=== PATIENT | female | born 1940 | race Caucasian/White ===

== ENCOUNTER 2017-08-16 21:42 | Emergency (ER) | payer MEDICARE ==
[2017-08-16] MEDS ORDERED: HYDROCODONE/ACETAMINOPHEN 5-325 MG TABLET PO ONE (21:58)
--- NOTE | 2017-08-16 21:59 | ER Document Report ---
ED General - General Stated Complaint: LOW BACK PAIN Time Seen by Provider: 08/16/17 21:51 Notes: Patient is a 77-year-old female comes emergency department for chief complaint of lower back pain. She states that she is treated with Tylenol and tramadol for this normally but she was given both of these tonight and she still is having pain in her lower back so she was sent to the emergency department for evaluation. She denies fall, trauma, fever, nausea/vomiting, dysuria, abdominal pain, or any other complaints. TRAVEL OUTSIDE OF THE [place] IN LAST 30 DAYS: No - Related Data Allergies/Adverse Reactions: HERIBERTO Inhibitors [Heriberto Inhibitors] Allergy (Verified 08/29/16 13:41) Past Medical History - General Information source: Patient - Social History Smoking Status: Current Every Day Smoker Frequency of alcohol use: None Drug Abuse: None Lives with: Family Family History: Hypertension - Past Medical History Cardiac Medical History: Reports: Hx Hypercholesterolemia, Hx Hypertension Neurological Medical History: Denies: Hx Cerebrovascular Accident Endocrine Medical History: Reports: Hx Diabetes Mellitus Type 2 Renal/ Medical History: Reports: Hx Renal Insufficiency GI Medical History: Reports: Hx Gastroesophageal Reflux Disease Musculoskeltal Medical History: Reports Hx Arthritis - Rheumatoid arthritis Psychiatric Medical History: Reports: Hx Depression Past Surgical History: Reports: Hx Genitourinary Surgery - bladder tack, Hx Hysterectomy, Hx Orthopedic Surgery - left ankle and foot - Immunizations Hx Diphtheria, Pertussis, Tetanus Vaccination: No Hx Pneumococcal Vaccination: 10/31/15 Review of Systems - Review of Systems Constitutional: No symptoms reported EENT: No symptoms reported Cardiovascular: No symptoms reported Respiratory: No symptoms reported Gastrointestinal: No symptoms reported Genitourinary: See HPI Female Genitourinary: No symptoms reported Musculoskeletal: See HPI Skin: No symptoms reported Hematologic/Lymphatic: No symptoms reported Neurological/Psychological: No symptoms reported Physical Exam - Vital signs Vitals: Temp Pulse Resp BP Pulse Ox 99.4 F 66 20 194/80 H 93 08/16/17 21:58 08/16/17 21:58 08/16/17 21:58 08/16/17 21:58 08/16/17 21:58 Interpretation: Normal - General General appearance: Appears well, Alert In distress: None - HEENT Head: Normocephalic, Atraumatic Eyes: Normal Pupils: PERRL - Respiratory Respiratory status: No respiratory distress Chest status: Nontender Breath sounds: Normal Chest palpation: Normal - Cardiovascular Rhythm: Regular Heart sounds: Normal auscultation Murmur: No - Abdominal Inspection: Normal Distension: No distension Bowel sounds: Normal Tenderness: Nontender. No: Tender, Guarding Organomegaly: No organomegaly - Back Back: Normal, Nontender. No: Tender, CVA tenderness, Vertebra tenderness - Extremities General upper extremity: Normal inspection, Nontender, Normal color, Normal ROM , Normal temperature General lower extremity: Normal inspection, Nontender, Normal color, Normal ROM , Normal temperature, Normal weight bearing. No: Reina's sign - Neurological Neuro grossly intact: Yes Cognition: Normal Orientation: AAOx4 Nikko Coma Scale Eye Opening: Spontaneous Nikko Coma Scale Verbal: Oriented Delcambre Coma Scale Motor: Obeys Commands Nikko Coma Scale Total: 15 Speech: Normal Motor strength normal: LUE, RUE, LLE, RLE Sensory: Normal - Psychological Associated symptoms: Normal affect, Normal mood - Skin Skin Temperature: Warm Skin Moisture: Dry Skin Color: Normal Course - Re-evaluation Re-evalutation: Patient hypertensive, no chest pain, no headache. She is already on multiple antihypertensive medications including hydralazine, clonidine, etc. I actually do not appreciate any tenderness over her back, she is smiling and well- appearing. She still states that she hurts in her back, states that she is in a wheelchair most of the time and this is frequent for her, request something for pain. Given hydrocodone. Afterwards pain completely resolved, she became very relaxed. Urinalysis unremarkable. Physical exam showing no deficits or concerning acute findings. Family member at bedside, discussed this with them, after discussion patient will be given topical patches for pain if needed in addition to her current regimen, follow-up with her provider for remaining treatment, and discussed return precautions in detail. Patient and family member state understanding and agreement. - Vital Signs Vital signs: Temp Pulse Resp BP Pulse Ox 97.8 F 66 13 159/61 H 95 08/17/17 01:45 08/16/17 21:58 08/17/17 01:02 08/17/17 01:02 08/17/17 01:02 - Laboratory Laboratory results interpreted by me: 08/16/17 23:03 Urine Protein 30 H Discharge - Discharge Clinical Impression: Lower back pain Qualifiers: Chronicity: chronic Back pain laterality: bilateral Sciatica presence: without sciatica Qualified Code(s): M54.5 - Low back pain Condition: Stable Disposition: SNF-Other Additional Instructions: No concerning abnormalities are seen on your evaluation. Urinalysis is unremarkable. You were given one dose of hydrocodone here tonight. Recommendation is to continue Tylenol and tramadol if needed for back pain, if needed additionally to this try the Lidoderm patches prescribed as directed. Follow-up with your primary care for additional management. Return the emergency department for any concerning symptoms including vomiting, fever, increased pain, etc. Prescriptions: Lidocaine [Lidoderm 5% (700 mg) Transdermal Patch] 1 patch TP DAILY #30 adh..patch Referrals: KATY POSADAS MD [Primary Care Provider] - Follow up as needed
[2017-08-16 23:12] LABS: APPEARANCE,URINE CLEAR; BILIRUBIN,URINE NEGATIVE (NEGATIVE); GLUCOSE, URINE NEGATIVE (NEGATIVE); KETONES,URINE NEGATIVE (NEGATIVE); LEUKOCYTE ESTERASE,URINE NEGATIVE (NEGATIVE); NITRITE,URINE NEGATIVE (NEGATIVE); PROTEIN,URINE 30 mg/dL (NEGATIVE); URINE SPECIFIC GRAVITY 1.008; UROBILINOGEN,URINE NEGATIVE mg/dL (<2.0)
[2017-08-17 01:39] VITALS: BP 159/61
== END 2017-08-17 01:49 ==
LOC: ER 21:42
DX: M54.5 Low back pain (principal); F17.200 Nicotine dependence, unspecified, uncomplicated; E78.00 Pure hypercholesterolemia, unspecified; I10 Essential (primary) hypertension; E11.9 Type 2 diabetes mellitus without complications; Z90.710 Acquired absence of both cervix and uterus
CPT/HCPCS: 99283; 51701; 81001; A9270

== ENCOUNTER → 2017-10-11 | Outpatient (CLI) | payer MEDICARE ==
--- NOTE | 2017-10-11 15:31 | RADIOLOGY REPORT (SQ) ---
EXAM DESCRIPTION: MRA ABDOMEN WITHOUT COMPLETED DATE/TIME: 10/11/2017 2:09 pm REASON FOR STUDY: CKD III (N18.3), HYPERTENSIVE CKD (I12.9) N18.3 CHRONIC KIDNEY DISEASE, STAGE 3 ( MODERATE) I12.9 HYPERTENSIVE CHRONIC KIDNEY DISEASE W STG 1-4/UNSP CHR COMPARISON: None. TECHNIQUE: Axial gradient echo images and T2 weighted images reformatted using MIPS for evaluation o f the aorta and renal arteries. FINDINGS: Aorta: Patent SMA and celiac axis: Patent without significant stenosis. Less than 50% stenosis margin of the tyson c axis. Renal arteries: The right renal artery is generally patent without any focal stenosis. The left melissa l artery is occluded. Solid organs: Liver and spleen remarkable for a eventration of the right hemidiaphragm and associate d migration of the right lobe of the liver. Pancreas without abnormality. No gallstones. Kidneys: No significant finding in the right kidney. The left kidney is atrophic with a large left renal cysts. 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 Right renal artery generally patent without focal stenosis. TECHNICAL DOCUMENTATION: JOB ID: [id number] [employer]- All Rights Reserved
== END ==
LOC: RAD 12:45
PROVIDERS: ATTEND Internal Medicine Nephrology
DX: I12.9 Hypertensive chronic kidney disease with stage 1 through stage 4 chronic kidney disease, or unspecified chronic kidney disease (principal); N18.3 Chronic kidney disease, stage 3 (moderate); D64.9 Anemia, unspecified
CPT/HCPCS: C8901

== ENCOUNTER 2017-12-09 15:57 | Inpatient (IN) | payer MEDICARE, MEDICAID ==
[2017-12-09] MEDS ORDERED: ACETAMINOPHEN 650 MG SUPP.RECT PR ONE (16:35)
[2017-12-09] MEDS ORDERED: PIPERACILLIN/TAZOBACTAM 4.5 GM VIAL IV ONE (16:35)
[2017-12-09] MEDS ORDERED: NORMAL SALINE 1000 ML 1,000 ML IV ONE (16:35)
[2017-12-09 16:44] LABS: VENOUS BLOOD BASE EXCESS 2.3 mmol/L; VENOUS BLOOD HCO3 25.7 mmol/L (20-32); VENOUS BLOOD PCO2 36.4 mmHg (35-63); VENOUS BLOOD PH 7.47 (7.30-7.42)
[2017-12-09 16:51] LABS: ABSOLUTE EOSINOPHILS # (AUTO) 0.1 10^3/uL (0.0-0.6); ABSOLUTE LYMPHOCYTES (AUTO) 1.9 10^3/uL (0.5-4.7); ABSOLUTE MONOCYTES (AUTO) 0.8 10^3/uL (0.1-1.4); ABSOLUTE NEUT (AUTO) 6.5 10^3/uL (1.7-8.2); BASOPHILS % (AUTO) 0.2 % (0-2); EOSINOPHILS % (AUTO) 1.1 % (0-6); HEMATOCRIT 33.4 % (36.0-47.0); HEMOGLOBIN 11.2 g/dL (12.0-15.5); LYMPHOCYTES % (AUTO) 20.2 % (13-45); MEAN CORPUSCULAR HEMOGLOBIN 32.7 pg (27.0-33.4); MEAN CORPUSCULAR HGB CONC 33.6 g/dL (32.0-36.0); MEAN CORPUSCULAR VOLUME 97 fl (80-97); MONOCYTES % (AUTO) 8.8 % (3-13); PLATELET COUNT 135 10^3/uL (150-450); RED BLOOD COUNT 3.44 10^6/uL (3.72-5.28); RED CELL DISTRIBUTION WIDTH 13.1 % (11.5-14.0); SEGMENTED NEUTROPHILS % (AUTO) 69.7 % (42-78); TOTAL CELLS COUNTED % (AUTO) 100 %; WHITE BLOOD COUNT 9.3 10^3/uL (4.0-10.5)
[2017-12-09 16:53] LABS: INTERNATIONAL RATION (INR) 0.98; PROTHROMBIN TIME 13.7 SEC (11.4-15.4)
--- NOTE | 2017-12-09 17:00 | RADIOLOGY REPORT (SQ) ---
EXAM DESCRIPTION: CHEST SINGLE VIEW COMPLETED DATE/TIME: 12/09/2017 4:49 pm REASON FOR STUDY: fever, AMS COMPARISON: 06/20/2016 NUMBER OF VIEWS: One view. TECHNIQUE: Single frontal radiographic view of the chest acquired. LIMITATIONS: None. FINDINGS: LUNGS AND PLEURA: No opacities, masses or pneumothorax. No pleural effusion. MEDIASTINUM AND HILAR STRUCTURES: No masses or contour abnormality. Elevated right hemidiaphragm. HEART AND VASCULATURE: Cardiac enlargement. Vascular congestion. Mitral annular calcification. BONES: Severe degenerative changes of the right shoulder. HARDWARE: None in the chest. OTHER: No other significant finding. IMPRESSION: CARDIAC ENLARGEMENT. VASCULAR CONGESTION. TECHNICAL DOCUMENTATION: JOB ID: [id number] [employer]- All Rights Reserved
[2017-12-09 17:04] LABS: ALANINE AMINOTRANSFERASE 21 U/L (9-52); ALBUMIN 3.9 g/dL (3.5-5.0); ALKALINE PHOSPHATASE 81 U/L (38-126); ANION GAP 10 (5-19); ASPARTATE AMINO TRANSFERASE 41 U/L (14-36); BILIRUBIN,DIRECT 0.1 mg/dL (0.0-0.4); BILIRUBIN,TOTAL 0.9 mg/dL (0.2-1.3); BLOOD UREA NITROGEN 28 mg/dL (7-20); CALCIUM 9.6 mg/dL (8.4-10.2); CARBON DIOXIDE 25 mmol/L (22-30); CHLORIDE 103 mmol/L (98-107); GLUCOSE 114 mg/dL (75-110); POTASSIUM 4.7 mmol/L (3.6-5.0); SODIUM 137.9 mmol/L (137-145); TOTAL PROTEIN 6.4 g/dL (6.3-8.2)
[2017-12-09 17:45] LABS: APPEARANCE,URINE CLEAR; BILIRUBIN,URINE NEGATIVE (NEGATIVE); COLOR,URINE YELLOW; GLUCOSE, URINE NEGATIVE (NEGATIVE); KETONES,URINE NEGATIVE (NEGATIVE); LEUKOCYTE ESTERASE,URINE TRACE (NEGATIVE); NITRITE,URINE NEGATIVE (NEGATIVE); PROTEIN,URINE 30 mg/dL (NEGATIVE); UROBILINOGEN,URINE NEGATIVE mg/dL (<2.0)
--- NOTE | 2017-12-09 18:46 | ER Document Report ---
ED General - General Mode of Arrival: Ambulatory Information source: Patient TRAVEL OUTSIDE OF THE [place] IN LAST 30 DAYS: No <LUIS DANIEL RUCKER - Last Filed: 12/10/17 00:53> <MAE HAN - Last Filed: 12/10/17 00:55> - General Chief Complaint: General Weakness Stated Complaint: WEAKNESS Time Seen by Provider: 12/09/17 16:26 Notes: Patient is a 77-year-old female who presents to the emergency department today with complaints of not feeling right. Daughter at bedside states that the [facility] her last night saying that the patient stated she "felt lousy but did not want to come to the hospital". Daughter states today again she got a call from the patient's penitentiary stating "she requested to come to the emergency department". Daughter states the patient is confused and she is normally like this when she has urinary tract infection or is dehydrated. 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 All history provided by the daughter. (MAE HAN) - Related Data Allergies/Adverse Reactions: HERIBERTO Inhibitors [Heriberto Inhibitors] Allergy (Verified 08/29/16 13:41) Past Medical History - General Information source: Patient - Social History Smoking Status: Former Smoker Cigarette use (# per day): No Chew tobacco use (# tins/day): No Frequency of alcohol use: None Drug Abuse: None Lives with: Family Family History: Reviewed & Not Pertinent, Hypertension Patient has suicidal ideation: No Patient has homicidal ideation: No - Past Medical History Cardiac Medical History: Reports: Hx Hypercholesterolemia, Hx Hypertension Endocrine Medical History: Reports: Hx Diabetes Mellitus Type 2 Renal/ Medical History: Reports: Hx Renal Insufficiency GI Medical History: Reports: Hx Gastroesophageal Reflux Disease Musculoskeltal Medical History: Reports Hx Arthritis - Rheumatoid arthritis Psychiatric Medical History: Reports: Hx Depression Past Surgical History: Reports: Hx Genitourinary Surgery - bladder tack, Hx Hysterectomy, Hx Orthopedic Surgery - left ankle and foot - Immunizations Hx Diphtheria, Pertussis, Tetanus Vaccination: No Hx Pneumococcal Vaccination: 10/31/15 <LUIS DANIEL RUCKER - Last Filed: 12/10/17 00:53> Musculoskeltal Medical History: Reports Other - viral myositis <MAE HAN - Last Filed: 12/10/17 00:55> Review of Systems - Review of Systems Constitutional: See HPI, Fever EENT: No symptoms reported Cardiovascular: No symptoms reported Respiratory: No symptoms reported Gastrointestinal: No symptoms reported Genitourinary: No symptoms reported Female Genitourinary: No symptoms reported Musculoskeletal: No symptoms reported Skin: No symptoms reported Hematologic/Lymphatic: No symptoms reported Neurological/Psychological: See HPI, Confusion -: Yes All other systems reviewed and negative <LUIS DANIEL RUCKER - Last Filed: 12/10/17 00:53> <MAE HAN - Last Filed: 12/10/17 00:55> - Review of Systems Notes: From the daughter. (MAE HAN) Physical Exam <LUIS DANIEL RUCKER - Last Filed: 12/10/17 00:53> <MAE HAN - Last Filed: 12/10/17 00:55> - Vital signs Vitals: Resp Pulse Ox 23 H 91 L 12/09/17 16:54 12/09/17 16:54 - Notes Notes: PHYSICAL EXAM GENERAL: Eyes open, staring off, does not answer questions, does not interact well, does not seem aware of people in the room. HEAD: Normocephalic, atraumatic. EYES: Pupils equal, round, and reactive to light. Extraocular movements intact. ENT: Dry mucosa moist, tongue midline. NECK: Full range of motion. Supple. Trachea midline. LUNGS: Clear to auscultation bilaterally, no wheezes, rales, or rhonchi. No respiratory distress. HEART: 2/6 systolic murmur, mildly tachycardic. No gallops or rubs. ABDOMEN: Soft, non-tender. Non-distended. Bowel sounds present in all 4 quadrants. EXTREMITIES: Complains of pain with movement of left elbow. Left elbow swollen, joint effusion, no tenderness over the olecranon. Radial and dorsalis pedis pulses 2/4 bilaterally. No cyanosis. NEUROLOGICAL: Confused. Moans during exam. PSYCH: Confused. Moans. SKIN: Hot to the touch, dry, normal turgor. No rashes or lesions noted. (LUIS DANIEL RUCKER) Course - Laboratory Result Diagrams: 12/09/17 16:25 12/09/17 16:25 <LUIS DANIEL RUCKER - Last Filed: 12/10/17 00:53> - Laboratory Result Diagrams: 12/09/17 16:25 12/09/17 16:25 <MAE HAN - Last Filed: 12/10/17 00:55> - Re-evaluation Re-evalutation: 12/09/17 19:42 CBC shows anemia with hemoglobin 11.2, platelets low at 135, no leukocytosis, no left shift, coags normal, venous blood gas grossly unremarkable, chemistries show CKD stage III grossly unchanged from baseline, LFTs unremarkable, cardiac enzymes positive with a troponin of 3.0, proBNP elevated at 3610. EKG is nonischemic although does show some anterior Q waves suspicious for prior infarction. Daughter adds that patient had been having some chest pain earlier in the week that went away with nitroglycerin. Suspect that patient may have had a non-STEMI earlier in the week which has already been completed. No evidence of ongoing ischemia. Urinalysis only shows trace leukocyte esterase, trace bacteria, I very much doubt urinary tract infection at this time however urine culture and blood cultures are pending. Chest x-ray shows vascular congestion. Patient does not have a history of congestive heart failure, she also does not have a history of prior heart attack prior to today. I suspect the patient has influenza as she is coming from [facility] where there is a very high rate of influenza and she has no symptoms of other infectious processes at this time. Patient will be started on an antiviral. Currently I am awaiting a phone call back from the pharmacist as the patient will not be able to take pills due to her altered mental status, I do not see any IV antivirals available in the computer so I am awaiting consultation with them. Patient has been given aspirin. I discussed the case with Dr. Vizcarra from the hospitalist service who agrees to admit the patient to her service on the [facility]. We both agree that at present the patient is not a candidate for immediate catheterization given her fever and her altered mental status. Patient will be stabilized here from an infectious disease standpoint and managed medically with consultation to the teacher adventure education projection technician, once the fever and altered mental status are resolved patient may need to be transferred for catheterization. Family understands this plan and is in agreement with it. 12/09/17 19:45 Hypertension will continue to be followed in the hospital. (MAE HAN) - Vital Signs Vital signs: Temp Pulse Resp BP Pulse Ox 97.9 F 78 24 H 166/65 H 96 12/10/17 00:01 12/09/17 20:45 12/10/17 00:01 12/10/17 00:01 12/10/17 00:03 - Laboratory Laboratory results interpreted by me: 12/09/17 12/09/17 12/09/17 16:25 16:25 16:25 RBC 3.44 L Hgb 11.2 L Hct 33.4 L Plt Count 135 L VBG pH 7.47 H BUN 28 H Creatinine 1.62 H Est GFR ( Amer) 37 L Est GFR (Non-Af Amer) 31 L Glucose 114 H AST 41 H Creatine Kinase NT-Pro-B Natriuret Pep Urine Protein Ur Leukocyte Esterase Urine Ascorbic Acid 12/09/17 12/09/17 12/09/17 17:05 17:05 17:24 RBC Hgb Hct Plt Count VBG pH BUN Creatinine Est GFR ( Amer) Est GFR (Non-Af Amer) Glucose AST Creatine Kinase 217 H NT-Pro-B Natriuret Pep 3610 H Urine Protein 30 H Ur Leukocyte Esterase TRACE H Urine Ascorbic Acid 40 H - EKG Interpretation by Me Additional EKG results interpreted by me: 12/09/17 19:43 EKG shows sinus rhythm rate of 88, first-degree AV block, left axis deviation, no ST segment elevations or depressions, no T-wave inversions, there are anterior Q waves per my interpretation. (MAE HAN) Critical Care Note - Critical Care Note Total time excluding time spent on procedures (mins): 55 <MAE HAN - Last Filed: 12/10/17 00:55> Discharge <LUIS DANIEL RUCKER - Last Filed: 12/10/17 00:53> - Discharge Admitting Provider: Hospitalist - [place] [facility] Admitted: [facility] <MAE HAN - Last Filed: 12/10/17 00:55> - Discharge Clinical Impression: Influenza, Non-STEMI (non-ST elevated myocardial infarction), CKD (chronic kidney disease), stage III Fever Qualifiers: Fever type: due to other condition Qualified Code(s): R50.81 - Fever presenting with conditions classified elsewhere Altered mental status Qualifiers: Altered mental status type: delirium Qualified Code(s): R41.0 - Disorientation , unspecified Condition: Serious Disposition: ADMITTED INPATIENT Scribe Attestation: 12/10/17 00:55 I personally performed the services described in the documentation, reviewed and edited the documentation which was dictated to the scribe in my presence, and it accurately records my words and actions. (MAE HAN) Scribe Documentation - Scribe Written by Arunaibe:: Mariia Rodney, 12/09/2017 1909 acting as scribe for :: Lisa <LUIS DANIEL RUCKER - Last Filed: 12/10/17 00:53>
[2017-12-09 18:55] LABS: CREATINE KINASE MB 2.87 ng/mL (<4.55)
[2017-12-09] MEDS ORDERED: FUROSEMIDE INJ/PF 40 MG/4 ML SDV IV ONE ×2 (19:34→23:00)
[2017-12-09] MEDS ORDERED: ASPIRIN 300 MG SUPP, RECTAL PR ONE ×2 (19:34→23:00)
[2017-12-09] MEDS ORDERED: OSELTAMIVIR PHOSPHATE 75 MG CAPSULE PO ONE (19:47)
[2017-12-09] MEDS ORDERED: ACETAMINOPHEN 650 MG SUPP.RECT PR PRN (19:50)
[2017-12-09] MEDS ORDERED: VANCOMYCIN HCL 0 MG in DEXTROSE 5%-WATER 250 ML IV NR (20:00)
[2017-12-09] MEDS ORDERED: NITROGLYCERIN 2.5 MG (0.1 MG/HR) PATCH.TD24 TD ONE (20:05)
[2017-12-09] MEDS ORDERED: DEXTROSE 50%-WATER 25 GM/50 ML DISP.SYRIN IV PRN ×4 (20:12→21:24)
[2017-12-09] MEDS ORDERED: VANCOMYCIN HCL INJ 1000 MG VIAL IV PRN (20:12)
[2017-12-09] MEDS ORDERED: GLUCAGON,HUMAN RECOMB 1 MG INJ IM PRN (20:12)
[2017-12-09] MEDS ORDERED: DEXTROSE 40% GEL 15 GM TUBE PO PRN ×4 (20:12→21:24)
[2017-12-09] MEDS ORDERED: ENOXAPARIN SODIUM INJ 100 MG/1 ML DISP.SYRIN SUBCUT ONE (20:15)
[2017-12-09 20:31] LABS: FREE T4 (FREE THYROXINE) 1.29 ng/dL (0.78-2.19)
[2017-12-09 20:45] LABS: THYROID STIMULATING HORMONE 1.67 uIU/mL (0.47-4.68)
[2017-12-09] MEDS: LEVALBUTEROL HCL NEB 1.25 MG/3 ML AMPUL NEB SCH (20:45)
--- NOTE | 2017-12-09 20:46 | EKG REPORT ---
SEVERITY:- ABNORMAL ECG - SINUS RHYTHM CONSIDER LEFT VENTRICULAR HYPERTROPHY ANTERIOR Q WAVES, POSSIBLY DUE TO LVH : Confirmed by: La Nena Mejía 09-Dec-2017 20:46:24
[2017-12-09] MEDS ORDERED: VANCOMYCIN HCL 1,000 MG in DEXTROSE 5%-WATER 250 ML IV ONE (21:00)
[2017-12-09] MEDS ORDERED: GLUCAGON,HUMAN RECOMB 1 MG INJ SUBCUT PRN (21:24)
[2017-12-09] MEDS ORDERED: PANTOPRAZOLE SODIUM 40 MG VIAL IV SCH (22:00)
[2017-12-09] MEDS ORDERED: METOPROLOL TARTRATE PF/INJ 5 MG/5 ML SDV IV SCH (22:00)
[2017-12-09] MEDS: HYDROCORTISONE SOD SUCCINATE INJ/PF 100 MG/2 ML SDV IV SCH (23:04)
[2017-12-10] MEDS ORDERED: PIPERACILLIN/TAZOBACTAM 3.375 GM VIAL IV PRN
[2017-12-10 00:42] LABS: APPEARANCE,URINE CLEAR; BILIRUBIN,URINE NEGATIVE (NEGATIVE); COLOR,URINE YELLOW; GLUCOSE, URINE NEGATIVE (NEGATIVE); KETONES,URINE NEGATIVE (NEGATIVE); LEUKOCYTE ESTERASE,URINE NEGATIVE (NEGATIVE); NITRITE,URINE NEGATIVE (NEGATIVE); PROTEIN,URINE 100 mg/dL (NEGATIVE); URINE SPECIFIC GRAVITY 1.012; UROBILINOGEN,URINE NEGATIVE mg/dL (<2.0)
[2017-12-10] MEDS ORDERED: NITROGLYCERIN 2.5 MG (0.1 MG/HR) PATCH.TD24 ONE (00:58)
[2017-12-10] MEDS: LEVALBUTEROL HCL NEB 1.25 MG/3 ML AMPUL NEB SCH ×2 (01:16→08:15)
[2017-12-10] MEDS: NORMAL SALINE 1000 ML 1,000 ML IV PRN ×2 (01:25→15:00)
[2017-12-10] MEDS: PIPERACILLIN SODIUM/TAZOBACTAM 3.375 GM in NORMAL SALINE 100 ML IV SCH ×4 (01:26→18:01)
--- NOTE | 2017-12-10 04:06 | PDOC H&P ---
History of Present Illness Admission Date/PCP: 12/09/17 20:00 KATY POSADAS MD Patient complains of: Change in mentation and fever History of Present Illness: GUY VICTORIA is a 77 year old female who resides at [facility]. She has a history of polymyositis, hypertension, type 2 diabetes, CKD stage III. Patient is currently altered and unable to give any history. Patient just says okay repeatedly. Per patient's daughter who is at bedside she states that she is complained of several days of just not feeling well. However they stated that she was stable. On Sunday for she complained of chest pain while at [facility] she was given sublingual nitroglycerin and her chest pain went away. Today patient was found to be confused and was sent here for further evaluation. On presentation patient was febrile with T-max of 102.5. Patient was also found to have an elevated troponin of 3. She was noted to have vascular congestion on chest x-ray. UA was unimpressive. Per patient's daughter usually patient becomes confused due to a urinary tract infection. Per the daughter patient is usually very sharp. Patient does not do much activity on her own due to her polymyositis. Patient is able to transfer from bed to chair or chair to bed with assistance. Patient does have difficulty with eating and was working with speech therapy. All patient medications have to be crushed and patient is on a modified diet. Hospitalist was called to admit patient for acute metabolic encephalopathy, febrile illness non-STEMI Past Medical History Cardiac Medical History: Reports: Hyperlipidema, Hypertension Endocrine Medical History: Reports: Diabetes Mellitus Type 2 GI Medical History: Reports: Gastroesophageal Reflux Disease Musculoskeltal Medical History: Reports: Arthritis - Rheumatoid arthritis Psychiatric Medical History: Reports: Depression Past Surgical History Past Surgical History: Reports: Hysterectomy, Orthopedic Surgery - left ankle and foot Social History Lives with: Family Smoking Status: Former Smoker Frequency of Alcohol Use: None Hx Recreational Drug Use: No Drugs: None Hx Prescription Drug Abuse: No - Advance Directive Resuscitation Status: Full Code Family History Family History: Hypertension Parental Family History Reviewed: No Children Family History Reviewed: No Sibling(s) Family History Reviewed.: No Medication/Allergy Home Medications: Carvedilol [Coreg 12.5 mg Tablet] 25 mg PO Q12 tablet 11/05/15 Hydrocortisone [Cortef 10 mg Tablet] 20 mg PO DAILY tablet 11/05/15 Omeprazole 20 mg PO QAM #0 11/05/15 Acetaminophen [Tylenol 325 mg Tablet] 650 mg PO Q4HP PRN tablet 11/09/15 Hydralazine HCl [Apresoline 50 mg Tablet] 50 mg PO TID 06/20/16 Montelukast Sodium [Singulair 10 mg Tablet] 10 mg PO DAILY 06/20/16 Calcium Carbonate [Tums Chewable 500 mg Tab.chew] 500 mg PO Q6HP PRN tab.chew 06/26/16 Fluticasone Propionate [Flonase Nasal [place] 50 Mcg/[place] 16 gm] 2 spray NASL DAILY spray.pump 06/26/16 Furosemide [Lasix 20 mg Tablet] 20 mg PO DAILY tablet 06/26/16 Potassium Chloride [Klor-Con 10 Meq Tablet.sa] 10 meq PO DAILY #0 06/26/16 Ascorbic Acid [Vitamin C 500 mg Tablet] 500 mg PO DAILY 08/29/16 Febuxostat [Uloric 40 mg Tablet] 40 mg PO DAILY 08/29/16 Gabapentin [Neurontin 300 mg Capsule] 300 mg PO Q8 08/29/16 Losartan Potassium [Cozaar 50 mg Tablet] 50 mg PO DAILY 08/29/16 Magnesium Oxide [Mag-Ox 400 mg Tablet] 400 mg PO DAILY 08/29/16 Multivitamin/Iron/Folic Acid [Centrum Complete Multivit Tab] 1 tab PO QAM Ropinirole HCl 1 tab PO BID 08/29/16 Tramadol HCl [Ultram 50 mg Tablet] 50 mg PO Q6 PRN 08/29/16 Cyanocobalamin (Vitamin B-12) [B-12 Compliance] 1,000 mcg SQ ASDIR #1 kit Insulin Lispro [Humalog Insulin (Lispro) 100 unit/mL] 0 unit SUBCUT .SLD SCALE # 10 ml 08/31/16 Lidocaine [Lidoderm 5% (700 mg) Transdermal Patch] 1 patch TP DAILY #30 adh..patch 08/16/17 Clonidine HCl [Catapres] 0.2 mg PO BID 12/09/17 Docusate Sodium [Colace 100 mg Capsule] 100 mg PO BID 12/09/17 Guar Gum [Benefiber] 1 each PO BID PRN 12/09/17 L.acidoph,Paracasei, B.lactis [Probiotic] 1 each PO BID 12/09/17 Fay-3 Fatty Acids/Fish Oil [Fish Oil 1,000 mg Capsule] 2 each PO DAILY Allergies/Adverse Reactions: HERIBERTO Inhibitors [Heriberto Inhibitors] Allergy (Verified 08/29/16 13:41) Review of Systems ROS unobtainable: Due to mental status Physical Exam Vital Signs: Temp Pulse Resp BP Pulse Ox 102.0 F H 78 14 180/81 H 99 12/09/17 20:24 12/09/17 20:45 12/09/17 20:45 12/09/17 20:01 12/09/17 20:45 Results Laboratory Results: 12/09/17 12/09/17 12/09/17 16:25 16:25 16:25 WBC 9.3 RBC 3.44 L Hgb 11.2 L Hct 33.4 L MCV 97 MCH 32.7 MCHC 33.6 RDW 13.1 Plt Count 135 L Seg Neutrophils % 69.7 Lymphocytes % 20.2 Monocytes % 8.8 Eosinophils % 1.1 Basophils % 0.2 Absolute Neutrophils 6.5 Absolute Lymphocytes 1.9 Absolute Monocytes 0.8 Absolute Eosinophils 0.1 Absolute Basophils 0.0 PT 13.7 INR 0.98 VBG pH VBG pCO2 VBG HCO3 VBG Base Excess Sodium 137.9 Potassium 4.7 Chloride 103 Carbon Dioxide 25 Anion Gap 10 BUN 28 H Creatinine 1.62 H Est GFR ( Amer) 37 L Est GFR (Non-Af Amer) 31 L Glucose 114 H Lactic Acid Calcium 9.6 Total Bilirubin 0.9 Direct Bilirubin 0.1 AST 41 H ALT 21 Alkaline Phosphatase 81 Creatine Kinase CK-MB (CK-2) Troponin I NT-Pro-B Natriuret Pep Total Protein 6.4 Albumin 3.9 TSH Free T4 Urine Color Urine Appearance Urine pH Ur Specific [place] Urine Protein Urine Glucose (UA) Urine Ketones Urine Blood Urine Nitrite Urine Bilirubin Urine Urobilinogen Ur Leukocyte Esterase Urine WBC (Auto) Urine RBC (Auto) U Hyaline Cast (Auto) Urine Mucus (Auto) Urine Ascorbic Acid 12/09/17 12/09/17 12/09/17 16:25 16:25 17:05 WBC RBC Hgb Hct MCV MCH MCHC RDW Plt Count Seg Neutrophils % Lymphocytes % Monocytes % Eosinophils % Basophils % Absolute Neutrophils Absolute Lymphocytes Absolute Monocytes Absolute Eosinophils Absolute Basophils PT INR VBG pH 7.47 H VBG pCO2 36.4 VBG HCO3 25.7 VBG Base Excess 2.3 Sodium Potassium Chloride Carbon Dioxide Anion Gap BUN Creatinine Est GFR ( Amer) Est GFR (Non-Af Amer) Glucose Lactic Acid 0.7 Calcium Total Bilirubin Direct Bilirubin AST ALT Alkaline Phosphatase Creatine Kinase 217 H CK-MB (CK-2) Troponin I NT-Pro-B Natriuret Pep Total Protein Albumin TSH Free T4 Urine Color Urine Appearance Urine pH Ur Specific [place] Urine Protein Urine Glucose (UA) Urine Ketones Urine Blood Urine Nitrite Urine Bilirubin Urine Urobilinogen Ur Leukocyte Esterase Urine WBC (Auto) Urine RBC (Auto) U Hyaline Cast (Auto) Urine Mucus (Auto) Urine Ascorbic Acid 12/09/17 12/09/17 12/09/17 17:05 17:05 21:20 WBC RBC Hgb Hct MCV MCH MCHC RDW Plt Count Seg Neutrophils % Lymphocytes % Monocytes % Eosinophils % Basophils % Absolute Neutrophils Absolute Lymphocytes Absolute Monocytes Absolute Eosinophils Absolute Basophils PT INR VBG pH VBG pCO2 VBG HCO3 VBG Base Excess Sodium Potassium Chloride Carbon Dioxide Anion Gap BUN Creatinine Est GFR ( Amer) Est GFR (Non-Af Amer) Glucose Lactic Acid Calcium Total Bilirubin Direct Bilirubin AST ALT Alkaline Phosphatase Creatine Kinase CK-MB (CK-2) 2.87 Troponin I 3.000 NT-Pro-B Natriuret Pep 3610 H Total Protein Albumin TSH 1.67 Free T4 1.29 Urine Color YELLOW Urine Appearance CLEAR Urine pH 7.0 Ur Specific [place] 1.012 Urine Protein 100 H Urine Glucose (UA) NEGATIVE Urine Ketones NEGATIVE Urine Blood NEGATIVE Urine Nitrite NEGATIVE Urine Bilirubin NEGATIVE Urine Urobilinogen NEGATIVE Ur Leukocyte Esterase NEGATIVE Urine WBC (Auto) 1 Urine RBC (Auto) 1 U Hyaline Cast (Auto) 1 Urine Mucus (Auto) RARE Urine Ascorbic Acid 20 H 12/09/17 23:11 WBC RBC Hgb Hct MCV MCH MCHC RDW Plt Count Seg Neutrophils % Lymphocytes % Monocytes % Eosinophils % Basophils % Absolute Neutrophils Absolute Lymphocytes Absolute Monocytes Absolute Eosinophils Absolute Basophils PT INR VBG pH VBG pCO2 VBG HCO3 VBG Base Excess Sodium Potassium Chloride Carbon Dioxide Anion Gap BUN Creatinine Est GFR ( Amer) Est GFR (Non-Af Amer) Glucose Lactic Acid Calcium Total Bilirubin Direct Bilirubin AST ALT Alkaline Phosphatase Creatine Kinase CK-MB (CK-2) Troponin I 2.570 NT-Pro-B Natriuret Pep Total Protein Albumin TSH Free T4 Urine Color Urine Appearance Urine pH Ur Specific [place] Urine Protein Urine Glucose (UA) Urine Ketones Urine Blood Urine Nitrite Urine Bilirubin Urine Urobilinogen Ur Leukocyte Esterase Urine WBC (Auto) Urine RBC (Auto) U Hyaline Cast (Auto) Urine Mucus (Auto) Urine Ascorbic Acid Impressions: Chest X-Ray 12/09/17 16:35 IMPRESSION: CARDIAC ENLARGEMENT. VASCULAR CONGESTION. Assessment & Plan - Diagnosis (1) Acute metabolic encephalopathy Plan: Acute metabolic encephalopathy most likely secondary to viral syndrome. Patient presented with elevated temperatures of 102.5. Patient also mildly dehydrated with acute on chronic renal failure. When patient is more coherent will start Tamiflu due to possible exposure being that patient resides at [facility]. Patient being worked up for bacterial infection. Blood and urine cultures are pending. Patient currently on vancomycin and Zosyn for bacterial infections are being ruled out. Can de-escalate antibiotics once information more information is known. UDS, ammonia level ordered to rule out other potential causes of encephalopathy. (2) Fever Qualifiers: Fever type: due to other condition Qualified Code(s): R50.81 - Fever presenting with conditions classified elsewhere Is this a current diagnosis for this admission?: Yes Plan: Patient with fever suspect that this is due to a viral illness or bacterial etiologies being ruled out. Patient be hydrated. Patient being given antipyretics per rectum. Patient currently on broad-spectrum antibiotics. Will start Tamiflu once patient is more coherent and can take oral medications. (3) Non-STEMI (non-ST elevated myocardial infarction) Is this a current diagnosis for this admission?: Yes Plan: Patient found to have a troponin elevated at 3. Patient did complain of chest pain on Sunday and was given nitroglycerin at [facility]. Repeat troponin is trending down. Will start treatment for non-ST elevation SD with Lovenox, nitro patch, rectal aspirin and IV beta-shabana. Will consult cardiology for evaluation. Echo ordered. Patient not given statin due to her n.p.o.. We will consider using the lowest dose possible in a patient with polymyositis. Will continue medical management. (4) Acute on chronic renal failure Qualifiers: Chronic kidney disease stage: stage 3 (moderate) Is this a current diagnosis for this admission?: Yes Plan: Patient has acute on chronic stage III renal failure. Patient creatinine is 1.62 was 1.48 previously in August 2017. Will gently hydrate patient and monitor. Will avoid nephrotoxins. Will monitor closely for volume overload as patient is already demonstrating vascular congestion. Hold patient losartan for now but resume as soon as possible as patient is hypertensive and is having proteinuria. (5) Diastolic heart failure Qualifiers: Heart failure chronicity: acute on chronic Qualified Code(s): I50.33 - Acute on chronic diastolic (congestive) heart failure Is this a current diagnosis for this admission?: Yes Plan: Patient with a history of grade 1 diastolic heart failure preserved EF of 60% which was seen on cardiac echo done in August 2016. Will repeat cardiac echo considering that patient may have had an acute cardiac event and may have worsening cardiac function. Patient is on IV beta-shabana. ARB is being held due to worsening renal function. Patient chest x-ray demonstrate vascular congestion however patient appears euvolemic on physical examination. Will monitor closely as patient is on IV fluids for dehydration. Daily weight and strict I's and O's are being monitored. (6) Dysphagia Is this a current diagnosis for this admission?: Yes Plan: She has a history of dysphasia. Per patient daughter on her medications need to be crushed. Will have patient evaluated by speech therapy when appropriate and start patient on appropriate diet. Will place patient on aspiration precautions. (7) Dehydration Is this a current diagnosis for this admission?: Yes Plan: Patient with dehydration secondary to acute febrile illness. Patient is altered or encephalopathic she will require some form of hydration to prevent further dehydration. Will continue IV hydration for now and switch to oral once patient mentation improves. (8) Type 2 diabetes mellitus Qualifiers: Diabetes mellitus complication detail: with polyneuropathy Is this a current diagnosis for this admission?: Yes Plan: Currently on sliding scale insulin. (9) Polymyositis Is this a current diagnosis for this admission?: Yes Plan: Patient with polymyositis. Patient debilitated due to his condition. Patient is on hydrocortisone and I presume that this is why she is on the medication. Being that patient is chronically on this medication and could potentially have adrenal insufficiency will start patient on stress doses. Once patient mentation improves she may require reintroduction of her pain medications. (10) Thrombocytopenia Is this a current diagnosis for this admission?: Yes Plan: Mild thrombocytopenia could be due to infection. Will monitor. (11) Anemia in chronic kidney disease Qualifiers: Chronic kidney disease stage: stage 3 (moderate) Qualified Code(s): N18.3 - Chronic kidney disease, stage 3 (moderate); D63.1 - Anemia in chronic kidney disease; D63.1 - Anemia in chronic kidney disease Is this a current diagnosis for this admission?: Yes Plan: Vision with anemia of chronic kidney disease or of chronic disease. Patient with a hemoglobin 11.2 previous hemoglobin was 10.2. Will monitor closely especially with patient being acutely ill it is possible that this may worsen. - Time Time Spent: 30 to 50 Minutes Anticipated discharge: SNF - Inpatient Certification Medical Necessity: Significant Comorbidiites Make Outpatient Treatment Too Risky , Need Close Monitoring Due to Risk of Patient Decompensation, Need For Continuous Telemetry Monitoring, Need for Nebulizer Therapy and Monitoring of Response, Need for Neurological Checks, Need for IV Antibiotics
[2017-12-10 04:23] LABS: URINE AMPHETAMINES SCREEN NEGATIVE; URINE BARBITURATES SCREEN NEGATIVE; URINE BENZODIAZEPINES SCREEN NEGATIVE; URINE COCAINE SCREEN NEGATIVE; URINE MARIJUANA (THC) SCREEN NEGATIVE; URINE METHADONE SCREEN NEGATIVE; URINE PHENCYCLIDINE SCREEN NEGATIVE
[2017-12-10 05:02] LABS: HEMATOCRIT 30.8 % (36.0-47.0); HEMOGLOBIN 10.6 g/dL (12.0-15.5); MEAN CORPUSCULAR HEMOGLOBIN 33.6 pg (27.0-33.4); MEAN CORPUSCULAR HGB CONC 34.4 g/dL (32.0-36.0); MEAN CORPUSCULAR VOLUME 98 fl (80-97); PLATELET COUNT 108 10^3/uL (150-450); RED BLOOD COUNT 3.15 10^6/uL (3.72-5.28); RED CELL DISTRIBUTION WIDTH 13.3 % (11.5-14.0); WHITE BLOOD COUNT 8.8 10^3/uL (4.0-10.5)
[2017-12-10 05:22] LABS: ALANINE AMINOTRANSFERASE 24 U/L (9-52); ALBUMIN 3.1 g/dL (3.5-5.0); ALKALINE PHOSPHATASE 67 U/L (38-126); ANION GAP 10 (5-19); ASPARTATE AMINO TRANSFERASE 32 U/L (14-36); BILIRUBIN,DIRECT 0.4 mg/dL (0.0-0.4); BILIRUBIN,TOTAL 1.2 mg/dL (0.2-1.3); BLOOD UREA NITROGEN 26 mg/dL (7-20); CALCIUM 8.9 mg/dL (8.4-10.2); CARBON DIOXIDE 23 mmol/L (22-30); CHLORIDE 104 mmol/L (98-107); CHOLESTEROL 163.24 mg/dL (0-200); GLUCOSE 140 mg/dL (75-110); POTASSIUM 3.8 mmol/L (3.6-5.0); SODIUM 137.4 mmol/L (137-145); TRIGLYCERIDES 114 mg/dL (<150)
[2017-12-10 05:33] LABS: DIRECT LDL 102 mg/dL (<100)
[2017-12-10] MEDS: HYDROCORTISONE SOD SUCCINATE INJ/PF 100 MG/2 ML SDV IV SCH (06:44)
[2017-12-10] MEDS ORDERED: ASPIRIN 300 MG SUPP, RECTAL PR SCH (10:00)
[2017-12-10] MEDS ORDERED: NITROGLYCERIN 2.5 MG (0.1 MG/HR) PATCH.TD24 TD SCH (10:00)
[2017-12-10] MEDS ORDERED: ACETAMINOPHEN 650 MG SUPP.RECT PR PRN (10:47)
[2017-12-10] MEDS ORDERED: OXYCODONE HCL SR 10 MG TABLET PO ONE (11:00)
--- NOTE | 2017-12-10 11:07 | PDOC PROGRESS REPORT ---
Subjective Progress Note for:: 12/10/17 Subjective:: Unable to obtain due to mental status Review of systems Unable to obtain due to mental status All significant laboratories and diagnostics have been reviewed Reason For Visit: ACUTE METABOLIC ENCEPHALOPATHY, NSTEMI, CHF Physical Exam Vital Signs: Temp Pulse Resp BP Pulse Ox 96.0 F L 70 17 154/70 H 97 12/10/17 06:01 12/10/17 01:16 12/10/17 06:01 12/10/17 06:01 12/10/17 03:46 Intake & Output 12/09/17 12/10/17 12/11/17 06:59 06:59 06:59 Output Total 2525 Balance -2525 General appearance: PRESENT: cooperative, morbidly obese Head exam: PRESENT: atraumatic, normocephalic Eye exam: PRESENT: conjunctiva pink, EOMI, PERRLA Mouth exam: PRESENT: moist Neck exam: PRESENT: full ROM. ABSENT: JVD, lymphadenopathy, tenderness Respiratory exam: PRESENT: clear to auscultation michael Cardiovascular exam: PRESENT: RRR. ABSENT: diastolic murmur, systolic murmur Vascular exam: PRESENT: normal capillary refill GI/Abdominal exam: PRESENT: normal bowel sounds, soft, tenderness Extremities exam: PRESENT: +2 edema. ABSENT: full ROM Musculoskeletal exam: ABSENT: ambulatory Neurological exam: PRESENT: alert, other - Confused Skin exam: PRESENT: intact, normal color Results Laboratory Results: 12/10/17 04:50 12/10/17 04:50 12/09/17 12/10/17 12/10/17 21:20 04:50 04:50 WBC 8.8 RBC 3.15 L Hgb 10.6 L Hct 30.8 L MCV 98 H MCH 33.6 H MCHC 34.4 RDW 13.3 Plt Count 108 L Sodium 137.4 Potassium 3.8 Chloride 104 Carbon Dioxide 23 Anion Gap 10 BUN 26 H Creatinine 1.65 H Est GFR ( Amer) 37 L Est GFR (Non-Af Amer) 30 L Glucose 140 H Calcium 8.9 Magnesium 1.8 Total Bilirubin 1.2 AST 32 ALT 24 Alkaline Phosphatase 67 Ammonia Total Protein 6.0 L Albumin 3.1 L Triglycerides 114 Cholesterol 163.24 LDL Cholesterol Direct 102 H VLDL Cholesterol 23.0 HDL Cholesterol 42 Urine Color YELLOW Urine Appearance CLEAR Urine pH 7.0 Ur Specific [place] 1.012 Urine Protein 100 H Urine Glucose (UA) NEGATIVE Urine Ketones NEGATIVE Urine Blood NEGATIVE Urine Nitrite NEGATIVE Ur Leukocyte Esterase NEGATIVE Urine WBC (Auto) 1 Urine RBC (Auto) 1 12/10/17 04:50 WBC RBC Hgb Hct MCV MCH MCHC RDW Plt Count Sodium Potassium Chloride Carbon Dioxide Anion Gap BUN Creatinine Est GFR ( Amer) Est GFR (Non-Af Amer) Glucose Calcium Magnesium Total Bilirubin AST ALT Alkaline Phosphatase Ammonia < 8.7 L Total Protein Albumin Triglycerides Cholesterol LDL Cholesterol Direct VLDL Cholesterol HDL Cholesterol Urine Color Urine Appearance Urine pH Ur Specific [place] Urine Protein Urine Glucose (UA) Urine Ketones Urine Blood Urine Nitrite Ur Leukocyte Esterase Urine WBC (Auto) Urine RBC (Auto) 12/09/17 12/10/17 23:11 04:50 Troponin I 2.570 1.850 Impressions: Chest X-Ray 12/09/17 16:35 IMPRESSION: CARDIAC ENLARGEMENT. VASCULAR CONGESTION. Assessment & Plan - Diagnosis (1) UTI (urinary tract infection) Qualifiers: Hematuria presence: without hematuria Is this a current diagnosis for this admission?: Yes Plan: Urine culture growing higher than 100,000 colonies of gram-negative bacillus. Will continue Zosyn (2) Acute metabolic encephalopathy Is this a current diagnosis for this admission?: Yes Plan: Persisting and likely due to infectious process (3) Acute on chronic renal failure Qualifiers: Chronic kidney disease stage: stage 3 (moderate) Is this a current diagnosis for this admission?: Yes Plan: Will trend (4) Anemia in chronic kidney disease Qualifiers: Chronic kidney disease stage: stage 3 (moderate) Qualified Code(s): N18.3 - Chronic kidney disease, stage 3 (moderate); D63.1 - Anemia in chronic kidney disease; D63.1 - Anemia in chronic kidney disease Is this a current diagnosis for this admission?: Yes Plan: To trend (5) Diastolic heart failure Qualifiers: Heart failure chronicity: acute on chronic Qualified Code(s): I50.33 - Acute on chronic diastolic (congestive) heart failure Is this a current diagnosis for this admission?: Yes Plan: Continue blood pressure control and Lasix (6) Dysphagia Qualifiers: Dysphagia type: unspecified Qualified Code(s): R13.10 - Dysphagia, unspecified Is this a current diagnosis for this admission?: Yes Plan: Seen by speech therapy and will change to soft mechanical (7) Influenza Is this a current diagnosis for this admission?: Yes Plan: Continue current management (8) Non-STEMI (non-ST elevated myocardial infarction) Is this a current diagnosis for this admission?: Yes Plan: To place on Toprol-XL, continue aspirin continue Lovenox for the next 24 hours. Anticipate to lisinopril. Been followed by cardiology (9) Polymyositis Is this a current diagnosis for this admission?: Yes Plan: To place on Solu-Medrol and discontinue hydrocortisone - Time Time Spent with patient: 15-24 minutes Medications reviewed and adjusted accordingly: Yes Anticipated discharge: SNF Within: within 72 hours - Inpatient Certification Based on my medical assessment, after consideration of the patient's comorbidities, presenting symptoms, or acuity I expect that the services needed warrant INPATIENT care.: Yes I certify that my determination is in accordance with my understanding of Medicare's requirements for reasonable and necessary INPATIENT services [42 CFR 412.3e].: Yes Medical Necessity: Need For Continuous Telemetry Monitoring, Need for Nebulizer Therapy and Monitoring of Response, Need for IV Antibiotics
[2017-12-10] MEDS: FUROSEMIDE INJ/PF 40 MG/4 ML SDV IV SCH (11:15)
[2017-12-10] MEDS: RANOLAZINE 500 MG TAB.SR.12H PO SCH ×2 (11:15→21:49)
[2017-12-10] MEDS ORDERED: METOPROLOL SUCCINATE 25 MG TAB.SR.24H PO ONE (11:45)
[2017-12-10] MEDS: ENOXAPARIN SODIUM INJ 100 MG/1 ML DISP.SYRIN SUBCUT SCH ×2 (12:19→21:52)
--- NOTE | 2017-12-10 15:14 | EKG REPORT ---
SEVERITY:- ABNORMAL ECG - SINUS RHYTHM LEFT VENTRICULAR HYPERTROPHY ANTERIOR Q WAVES, POSSIBLY DUE TO LVH : Confirmed by: La Nena Mejía 10-Dec-2017 15:14:40
[2017-12-10] MEDS: METHYLPREDNISOLONE INJ 40 MG/1 ML SDV IV SCH ×2 (16:14→21:49)
--- NOTE | 2017-12-10 19:53 | PDOC CONSULTATION ---
Consultation Consult Date: 12/10/17 Attending physician:: LEDA AVILA Consult reason:: Non-STEMI History of Present Illness Admission Date/PCP: 12/09/17 20:00 KATY POSADAS MD Patient complains of: General fatigue, mental status changes History of Present Illness: GUY VICTORIA is a 77 year old female who resides at [facility]. She has a history of polymyositis, hypertension, type 2 diabetes, CKD stage III. Patient is currently altered and unable to give any history. Patient just says okay repeatedly. Per patient's daughter who is at bedside she states that she is complained of several days of just not feeling well. However they stated that she was stable. On Sunday for she complained of chest pain while at [facility] she was given sublingual nitroglycerin and her chest pain went away. Today patient was found to be confused and was sent here for further evaluation. On presentation patient was febrile with T-max of 102.5. Patient was also found to have an elevated troponin of 3. She was noted to have vascular congestion on chest x-ray. UA was unimpressive. Per patient's daughter usually patient becomes confused due to a urinary tract infection. Per the daughter patient is usually very sharp. Patient does not do much activity on her own due to her polymyositis. Patient is able to transfer from bed to chair or chair to bed with assistance. Patient does have difficulty with eating and was working with speech therapy. All patient medications have to be crushed and patient is on a modified diet. Hospitalist was called to admit patient for acute metabolic encephalopathy, febrile illness non-STEMI This history was reviewed and confirmed. Patient's daughter at bedside. CODE STATUS discussed. Patient currently DNI. Patient daughter is the surrogate decision-maker and wants ardiac compression and chemical code. Patient still has significant mental status changes and not able to add anything. Past Medical History Cardiac Medical History: Reports: Hyperlipidema, Hypertension Endocrine Medical History: Reports: Diabetes Mellitus Type 2 GI Medical History: Reports: Gastroesophageal Reflux Disease Musculoskeltal Medical History: Reports: Arthritis - Rheumatoid arthritis, Other - viral myositis Psychiatric Medical History: Reports: Depression Past Surgical History Past Surgical History: Reports: Hysterectomy, Orthopedic Surgery - left ankle and foot Social History Information Source: Relative Lives with: Family Smoking Status: Former Smoker Frequency of Alcohol Use: None Hx Recreational Drug Use: No Drugs: None Hx Prescription Drug Abuse: No - Advance Directive Resuscitation Status: Do Not Intubate Surrogate healthcare decision maker:: Patient's daughter is the surrogate decision-maker. Family History Family History: Hypertension Parental Family History Reviewed: Yes Children Family History Reviewed: Yes Sibling(s) Family History Reviewed.: Yes Medication/Allergy Home Medications: Acetaminophen [Tylenol 325 mg Tablet] 650 mg PO Q4HP PRN 12/10/17 Ascorbic Acid [Vitamin C 500 mg Tablet] 500 mg PO DAILY 12/10/17 Calcium Carbonate [Tums Chewable 500 mg Tab.chew] 10,000 mg PO Q2HP PRN Carvedilol [Coreg 12.5 mg Tablet] 12.5 mg PO Q12 12/10/17 Clonidine HCl [Catapres 0.2 mg Tablet] 0.2 mg PO BID 12/10/17 Cyanocobalamin (Vitamin B-12) [Vitamin B-12 Inj 1000 Mcg/1 ml Vial] 1,000 mcg INJ [id number] 12/10/17 Diphenhydramine HCl [Benadryl] 50 mg PO Q6HP PRN 12/10/17 Docusate Sodium [Colace 100 mg Capsule] 100 mg PO BID 12/10/17 Febuxostat [Uloric 40 mg Tablet] 40 mg PO DAILY 12/10/17 Fluticasone Propionate [Flonase Nasal [place] 50 Mcg/[place] 16 gm] 2 spray NASL DAILY 12/10/17 Folic Acid 1 mg PO DAILY 12/10/17 Furosemide [Lasix 20 mg Tablet] 20 mg PO DAILY 12/10/17 Gabapentin [Neurontin 300 mg Capsule] 300 mg PO Q8 12/10/17 Hydralazine HCl [Apresoline 50 mg Tablet] 50 mg PO TID 12/10/17 Hydrocortisone [Cortef 10 Mg Tablet] 10 mg PO DAILY 12/10/17 Insulin Lispro [Humalog] 0 unit SUBCUT .SLD SCALE 12/10/17 L.acidoph,Paracasei, B.lactis [Probiotic] 1 cap PO BID 12/10/17 Lidocaine [Lidoderm 5% (700 mg) Transdermal Patch] 1 patch TOP DAILY 12/10/17 Losartan Potassium [Cozaar 50 mg Tablet] 50 mg PO DAILY 12/10/17 Magnesium Oxide [Mag-Ox 400 mg Tablet] 400 mg PO DAILY 12/10/17 Montelukast Sodium [Singulair 10 mg Tablet] 10 mg PO QHS 12/10/17 Multivitamin/Iron/Folic Acid [Centrum Complete Multivit Tab] 1 each PO DAILY 10/15 Petal-3 Fatty Acids/Fish Oil [Fish Oil 1,000 mg Capsule] 2 cap PO BID 12/10/17 Polyvinyl Alcohol [Liquitears] 2 drop OU QID 12/10/17 Potassium Chloride [Kaon-Cl 20 Meq/15 Ml Udcup] 10 meq PO DAILY 12/10/17 Ranitidine HCl [Zantac] 300 mg PO BID 12/10/17 Ropinirole HCl [Requip] 1 mg PO BID 12/10/17 Tramadol HCl [Ultram 50 mg Tablet] 100 mg PO Q6HP PRN 12/10/17 Wheat Dextrin [Benefiber] 1 packet PO BIDP PRN 12/10/17 Allergies/Adverse Reactions: HERIBERTO Inhibitors [Heriberto Inhibitors] Allergy (Verified 08/29/16 13:41) Review of Systems ROS unobtainable: Due to mental status Physical Exam Vital Signs: Temp Pulse Resp BP Pulse Ox 99.5 F 68 21 H 153/56 H 94 12/10/17 17:01 12/10/17 17:01 12/10/17 17:00 12/10/17 17:01 12/10/17 17:01 Intake & Output 12/09/17 12/10/17 12/11/17 06:59 06:59 06:59 Output Total 2525 Balance -2525 Weight 85.5 kg Exam: GENERAL: well-nourished and in no acute distress. Patient is alert but not oriented to place time or person. HEAD: Atraumatic, normocephalic. EYES: Pupils equal round and reactive to light, extraocular movements intact, sclera anicteric, conjunctiva are normal. ENT: TMs normal, nares patent, oropharynx clear without exudates. Moist mucous membranes. No oral ulcerations or bleeding gums noted NECK: supple without lymphadenopathy or JVD. Trachea is central. No cervical or axillary lymphadenopathy noted. Carotids are 2+ LUNGS: Breath sounds bibasilar fine crackles at bases. No significant dullness noted. CHEST: Palpation of chest wall shows no significant chest wall tenderness. 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 ABDOMEN: Soft, no significant tenderness appreciated, normoactive bowel sounds. No guarding, no rebound. No rigidity noted . No masses appreciated. EXTREMITIES: Pedal pulses are 1-2+, no calf tenderness noted, Trace + pedal edema noted. No clubbing or cyanosis. NEUROLOGICAL: Patient is alert but is not able to participate in neurological exam because of patient's current mental status PSYCH: Patient cannot participate in a neurologic and psych exam because of the patient's current mental status SKIN: No significant ecchymosis, rash, ulcerations or signs of pruritus noted. MUSCULOSKELETAL EXAM: No significant joint swelling noted. Results Laboratory Results: 12/10/17 04:50 12/10/17 04:50 12/09/17 12/10/17 12/10/17 21:20 04:50 04:50 WBC 8.8 RBC 3.15 L Hgb 10.6 L Hct 30.8 L MCV 98 H MCH 33.6 H MCHC 34.4 RDW 13.3 Plt Count 108 L Sodium 137.4 Potassium 3.8 Chloride 104 Carbon Dioxide 23 Anion Gap 10 BUN 26 H Creatinine 1.65 H Est GFR ( Amer) 37 L Est GFR (Non-Af Amer) 30 L Glucose 140 H Calcium 8.9 Magnesium 1.8 Total Bilirubin 1.2 AST 32 ALT 24 Alkaline Phosphatase 67 Ammonia Total Protein 6.0 L Albumin 3.1 L Triglycerides 114 Cholesterol 163.24 LDL Cholesterol Direct 102 H VLDL Cholesterol 23.0 HDL Cholesterol 42 Urine Color YELLOW Urine Appearance CLEAR Urine pH 7.0 Ur Specific [place] 1.012 Urine Protein 100 H Urine Glucose (UA) NEGATIVE Urine Ketones NEGATIVE Urine Blood NEGATIVE Urine Nitrite NEGATIVE Ur Leukocyte Esterase NEGATIVE Urine WBC (Auto) 1 Urine RBC (Auto) 1 12/10/17 04:50 WBC RBC Hgb Hct MCV MCH MCHC RDW Plt Count Sodium Potassium Chloride Carbon Dioxide Anion Gap BUN Creatinine Est GFR ( Amer) Est GFR (Non-Af Amer) Glucose Calcium Magnesium Total Bilirubin AST ALT Alkaline Phosphatase Ammonia < 8.7 L Total Protein Albumin Triglycerides Cholesterol LDL Cholesterol Direct VLDL Cholesterol HDL Cholesterol Urine Color Urine Appearance Urine pH Ur Specific [place] Urine Protein Urine Glucose (UA) Urine Ketones Urine Blood Urine Nitrite Ur Leukocyte Esterase Urine WBC (Auto) Urine RBC (Auto) 12/09/17 12/10/17 12/10/17 23:11 04:50 10:52 Troponin I 2.570 1.850 1.450 EKG Comments: Sinus rhythm, no acute ST-T wave changes noted. There is nonprogression of R- wave anterior precordial leads consistent with anterior DC, age indeterminate. Impressions: Chest X-Ray 12/09/17 16:35 IMPRESSION: CARDIAC ENLARGEMENT. VASCULAR CONGESTION. Assessment & Plan - Diagnosis (1) Non-STEMI (non-ST elevated myocardial infarction) Is this a current diagnosis for this admission?: Yes (2) CHF (congestive heart failure) Qualifiers: Heart failure chronicity: unspecified Is this a current diagnosis for this admission?: Yes (3) Acute metabolic encephalopathy Is this a current diagnosis for this admission?: Yes (5) Hyperlipidemia Qualifiers: Hyperlipidemia type: unspecified Qualified Code(s): E78.5 - Hyperlipidemia , unspecified (6) Hypertension Qualifiers: Hypertension type: essential hypertension Qualified Code(s): I10 - Essential (primary) hypertension - Notes Notes: Non-STEMI: There is history of chest pain prior to presentation. Troponins are elevated. Patient subsequently sustained a non-STEMI secondary to acute coronary syndrome but because of her mental status and general debility, medical management is being recommended. Patient's daughter is agreeable with medical management. Patient already on Lovenox, aspirin, beta-blockers, statins, Ranexa therapy. Therefore she is being adequately treated. Patient is not showing any evolving changes but will repeat another EKG. CHF: Exact etiology not clear but patient could have systolic dysfunction. An echocardiogram has been ordered. Acute metabolic encephalopathy: Patient is noted to have febrile illness. This is being worked up by the hospitalist. Chronic kidney disease: Stage III. Currently stable Dyslipidemia: Continue high potency statin therapy. Hypertension: Currently blood pressure stable. - Time Time Spent: 30 to 50 Minutes - CODE STATUS : was discussed, patient remains DO NOT intubate but family wants cardiac resuscitation with cardiac compression and chemical code. Surrogate decision-maker patient's daughter. Multiple medical problems were addressed. More than 50% of the time spent coordinating care, discussing management plans with involved caregivers. Management plans discussed with involved personnels. Medical decision making was of moderate to high complexity, patient's has multiple comorbidities.
[2017-12-10] MEDS: OXYCODONE HCL SR 10 MG TABLET PO SCH (21:48)
[2017-12-10] MEDS: ATORVASTATIN CALCIUM 40 MG TABLET PO SCH (21:49)
[2017-12-10] MEDS: INSULIN LISPRO 100 UNIT/ML 3 ML VIAL SUBCUT PRN (22:00)
[2017-12-10] MEDS ORDERED: VANCOMYCIN HCL 750 MG in DEXTROSE 5%-WATER 250 ML IV SCH (22:00)
[2017-12-10] MEDS ORDERED: NITROGLYCERIN 5 MG (0.2 MG/HR) PATCH.TD24 TD ONE (23:03)
[2017-12-11] MEDS: HYDRALAZINE HCL INJ/PF 20 MG/1 ML SDV IV PRN ×3 (00:16→17:22)
[2017-12-11] MEDS: PIPERACILLIN SODIUM/TAZOBACTAM 3.375 GM in NORMAL SALINE 100 ML IV SCH ×4 (00:45→17:22)
[2017-12-11 04:53] LABS: ABSOLUTE LYMPHOCYTES (AUTO) 0.9 10^3/uL (0.5-4.7); ABSOLUTE MONOCYTES (AUTO) 0.1 10^3/uL (0.1-1.4); ABSOLUTE NEUT (AUTO) 6.5 10^3/uL (1.7-8.2); HEMATOCRIT 29.5 % (36.0-47.0); HEMOGLOBIN 10.1 g/dL (12.0-15.5); LYMPHOCYTES % (AUTO) 11.7 % (13-45); MEAN CORPUSCULAR HGB CONC 34.3 g/dL (32.0-36.0); MEAN CORPUSCULAR VOLUME 96 fl (80-97); MONOCYTES % (AUTO) 1.4 % (3-13); PLATELET COUNT 109 10^3/uL (150-450); RED BLOOD COUNT 3.06 10^6/uL (3.72-5.28); SEGMENTED NEUTROPHILS % (AUTO) 86.9 % (42-78); TOTAL CELLS COUNTED % (AUTO) 100 %; WHITE BLOOD COUNT 7.4 10^3/uL (4.0-10.5)
[2017-12-11 05:25] LABS: ANION GAP 14 (5-19); BLOOD UREA NITROGEN 32 mg/dL (7-20); CARBON DIOXIDE 21 mmol/L (22-30); CHLORIDE 105 mmol/L (98-107); GLUCOSE 165 mg/dL (75-110); SODIUM 139.7 mmol/L (137-145)
[2017-12-11 05:41] LABS: POTASSIUM 3.1 mmol/L (3.6-5.0)
[2017-12-11] MEDS ORDERED: HYDRALAZINE HCL 50 MG TABLET PO SCH (06:00)
[2017-12-11] MEDS: METHYLPREDNISOLONE INJ 40 MG/1 ML SDV IV SCH ×3 (06:24→23:16)
[2017-12-11] MEDS: NORMAL SALINE 1000 ML 1,000 ML IV PRN ×2 (06:25→22:04)
--- NOTE | 2017-12-11 09:29 | EKG REPORT ---
SEVERITY:- ABNORMAL ECG - SINUS RHYTHM CONSIDER ANTEROSEPTAL INFARCT NONSPECIFIC T ABNORMALITIES, LATERAL LEADS : Confirmed by: La Nena Mejía 11-Dec-2017 09:27:04
[2017-12-11] MEDS ORDERED: METOPROLOL SUCCINATE 25 MG TAB.SR.24H PO SCH (10:00)
[2017-12-11] MEDS: ENOXAPARIN SODIUM INJ 100 MG/1 ML DISP.SYRIN SUBCUT SCH (10:10)
[2017-12-11] MEDS: FUROSEMIDE INJ/PF 40 MG/4 ML SDV IV SCH (10:10)
[2017-12-11] MEDS: CARVEDILOL 12.5 MG TABLET PO SCH ×2 (10:11→20:55)
[2017-12-11] MEDS: OXYCODONE HCL SR 10 MG TABLET PO SCH ×2 (10:11→23:24)
[2017-12-11] MEDS: CLONIDINE HCL 0.2 MG TABLET PO SCH ×2 (10:12→20:55)
[2017-12-11] MEDS: ROPINIROLE HCL 1 MG TABLET PO SCH ×2 (10:12→17:22)
[2017-12-11] MEDS: NITROGLYCERIN 5 MG (0.2 MG/HR) PATCH.TD24 TD SCH (10:12)
[2017-12-11] MEDS: RANOLAZINE 500 MG TAB.SR.12H PO SCH ×2 (10:12→23:34)
[2017-12-11] MEDS: INSULIN LISPRO 100 UNIT/ML 3 ML VIAL SUBCUT PRN (12:59)
[2017-12-11] MEDS: ONDANSETRON HCL INJ/PF 4 MG/2 ML SDV IV PRN (13:00)
--- NOTE | 2017-12-11 13:59 | PDOC PROGRESS REPORT ---
Subjective Progress Note for:: 12/11/17 Subjective:: Unable to obtain due to mental status. There is at bedside and states that pain is better but she still confused Review of systems Unable to obtain due to mental status All significant laboratories and diagnostics have been reviewed Reason For Visit: ACUTE METABOLIC ENCEPHALOPATHY, NSTEMI, CHF Physical Exam Vital Signs: Temp Pulse Resp BP Pulse Ox 98.7 F 71 16 163/81 H 96 12/11/17 12:09 12/11/17 12:09 12/11/17 12:09 12/11/17 12:09 12/11/17 12:09 Intake & Output 12/10/17 12/11/17 12/12/17 06:59 06:59 06:59 Intake Total 524 Output Total 2522 2800 Balance -2525 -2276 Weight 81.3 kg General appearance: PRESENT: cooperative, morbidly obese Head exam: PRESENT: atraumatic, normocephalic Eye exam: PRESENT: conjunctiva pink, EOMI, PERRLA Ear exam: PRESENT: normal external ear exam Mouth exam: PRESENT: moist Neck exam: PRESENT: full ROM. ABSENT: JVD, lymphadenopathy, tenderness Respiratory exam: PRESENT: clear to auscultation michael Cardiovascular exam: PRESENT: RRR. ABSENT: diastolic murmur, systolic murmur Vascular exam: PRESENT: normal capillary refill GI/Abdominal exam: PRESENT: normal bowel sounds, soft. ABSENT: tenderness Extremities exam: PRESENT: full ROM, +1 edema Musculoskeletal exam: PRESENT: ambulatory Neurological exam: PRESENT: alert, awake, oriented to person, oriented to place , oriented to time Psychiatric exam: PRESENT: appropriate affect, normal mood Skin exam: PRESENT: erythema - Edema of lower extremities improved, normal color Results Laboratory Results: 12/11/17 04:15 12/11/17 04:15 12/11/17 12/11/17 04:15 04:15 WBC 7.4 RBC 3.06 L Hgb 10.1 L Hct 29.5 L MCV 96 MCH 33.0 MCHC 34.3 RDW 13.0 Plt Count 109 L Seg Neutrophils % 86.9 H Lymphocytes % 11.7 L Monocytes % 1.4 L Eosinophils % 0.0 Basophils % 0.0 Absolute Neutrophils 6.5 Absolute Lymphocytes 0.9 Absolute Monocytes 0.1 Absolute Eosinophils 0.0 Absolute Basophils 0.0 Sodium 139.7 Potassium 3.1 L Chloride 105 Carbon Dioxide 21 L Anion Gap 14 BUN 32 H Creatinine 1.56 H Est GFR ( Amer) 39 L Est GFR (Non-Af Amer) 32 L Glucose 165 H Calcium 9.0 Magnesium 1.7 12/09/17 12/10/17 12/10/17 23:11 04:50 10:52 Troponin I 2.570 1.850 1.450 Impressions: Chest X-Ray 12/09/17 16:35 IMPRESSION: CARDIAC ENLARGEMENT. VASCULAR CONGESTION. Assessment & Plan - Diagnosis (1) UTI (urinary tract infection) Qualifiers: Hematuria presence: without hematuria Is this a current diagnosis for this admission?: Yes Plan: Is a mixed infection. Initial organism isolated is Pseudomonas aeruginosa which is sensitive to Zosyn identification of the second organism still pending (2) Acute metabolic encephalopathy Is this a current diagnosis for this admission?: Yes Plan: Persisting and likely due to infectious process. To order ammonia level. The possibility might be due to hypertensive encephalopathy. Blood pressure medications to be adjusted (3) Acute on chronic renal failure Qualifiers: Chronic kidney disease stage: stage 3 (moderate) Is this a current diagnosis for this admission?: Yes Plan: Stable and to trend (4) Anemia in chronic kidney disease Qualifiers: Chronic kidney disease stage: stage 3 (moderate) Qualified Code(s): N18.3 - Chronic kidney disease, stage 3 (moderate); D63.1 - Anemia in chronic kidney disease; D63.1 - Anemia in chronic kidney disease Is this a current diagnosis for this admission?: Yes Plan: Stable and trend (5) Diastolic heart failure Qualifiers: Heart failure chronicity: acute on chronic Qualified Code(s): I50.33 - Acute on chronic diastolic (congestive) heart failure Is this a current diagnosis for this admission?: Yes Plan: Continue blood pressure control and Lasix (6) Dysphagia Qualifiers: Dysphagia type: unspecified Qualified Code(s): R13.10 - Dysphagia, unspecified Is this a current diagnosis for this admission?: Yes Plan: Seen by speech therapy. Patient to continue soft mechanical diet (7) Influenza Is this a current diagnosis for this admission?: Yes Plan: This was a presumptive diagnosis and will discontinue Tamiflu (8) Non-STEMI (non-ST elevated myocardial infarction) Is this a current diagnosis for this admission?: Yes Plan: Seen by Dr. Mejía. Continue current management (9) Polymyositis Is this a current diagnosis for this admission?: Yes Plan: Continue Solu-Medrol and oxycodone (10) Hypokalemia Is this a current diagnosis for this admission?: Yes Plan: Replace orally and trend - Time Time Spent with patient: 15-24 minutes Medications reviewed and adjusted accordingly: Yes Anticipated discharge: SNF Within: within 72 hours - Inpatient Certification Based on my medical assessment, after consideration of the patient's comorbidities, presenting symptoms, or acuity I expect that the services needed warrant INPATIENT care.: Yes I certify that my determination is in accordance with my understanding of Medicare's requirements for reasonable and necessary INPATIENT services [42 CFR 412.3e].: Yes Medical Necessity: Need Close Monitoring Due to Risk of Patient Decompensation, Need For Continuous Telemetry Monitoring, Need for Pain Control, Need for IV Antibiotics
[2017-12-11] MEDS ORDERED: AMLODIPINE BESYLATE 5 MG TABLET PO ONE (14:00)
[2017-12-11] MEDS ORDERED: POTASSIUM CHLORIDE 10 MEQ TABLET.SA PO SCH (14:00)
[2017-12-11] MEDS: HYDRALAZINE HCL 50 MG TABLET PO SCH ×2 (14:51→20:55)
[2017-12-11] MEDS ORDERED: POTASSIUM CHLORIDE 20 MEQ/15 ML UDCUP PO ONE ×2 (15:30→19:30)
--- NOTE | 2017-12-11 19:27 | PDOC PROGRESS REPORT ---
Subjective Progress Note for:: 12/11/17 Subjective:: Patient seems to be doing better with significant improvement. Patient noted more alert but still confused. There is no complaints of chest pains or any shortness of breath. She is laying in bed and is comfortable. Patient is maintaining sinus rhythm. Review of systems: Rest review of systems negative. Medications: Medications have been reviewed. Reason For Visit: ACUTE METABOLIC ENCEPHALOPATHY, NSTEMI, CHF Physical Exam Vital Signs: Temp Pulse Resp BP Pulse Ox 97.8 F 65 16 192/69 H 95 12/11/17 16:24 12/11/17 16:24 12/11/17 16:24 12/11/17 16:24 12/11/17 16:24 Intake & Output 12/10/17 12/11/17 12/12/17 06:59 06:59 06:59 Intake Total 524 928 Output Total 2525 2800 Balance -2525 -2276 928 Weight 81.3 kg Exam: GENERAL: well-nourished and in no acute distress. Patient is alert but not oriented to place time or person. HEAD: Atraumatic, normocephalic. EYES: Pupils equal round and reactive to light, extraocular movements intact, sclera anicteric, conjunctiva are normal. ENT: TMs normal, nares patent, oropharynx clear without exudates. Moist mucous membranes. No oral ulcerations or bleeding gums noted NECK: supple without lymphadenopathy or JVD. Trachea is central. No cervical or axillary lymphadenopathy noted. Carotids are 2+ LUNGS: Breath sounds bibasilar fine crackles at bases. No significant dullness noted. CHEST: Palpation of chest wall shows no significant chest wall tenderness. 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 ABDOMEN: Soft, no significant tenderness appreciated, normoactive bowel sounds. No guarding, no rebound. No rigidity noted . No masses appreciated. EXTREMITIES: Pedal pulses are 1-2+, no calf tenderness noted, Trace + pedal edema noted. No clubbing or cyanosis. NEUROLOGICAL: Patient is alert but is not able to participate in neurological exam because of patient's current mental status PSYCH: Patient cannot participate in a neurologic and psych exam because of the patient's current mental status SKIN: No significant ecchymosis, rash, ulcerations or signs of pruritus noted. MUSCULOSKELETAL EXAM: No significant joint swelling noted. Results Laboratory Results: 12/11/17 04:15 12/11/17 04:15 12/11/17 12/11/17 04:15 04:15 WBC 7.4 RBC 3.06 L Hgb 10.1 L Hct 29.5 L MCV 96 MCH 33.0 MCHC 34.3 RDW 13.0 Plt Count 109 L Seg Neutrophils % 86.9 H Lymphocytes % 11.7 L Monocytes % 1.4 L Eosinophils % 0.0 Basophils % 0.0 Absolute Neutrophils 6.5 Absolute Lymphocytes 0.9 Absolute Monocytes 0.1 Absolute Eosinophils 0.0 Absolute Basophils 0.0 Sodium 139.7 Potassium 3.1 L Chloride 105 Carbon Dioxide 21 L Anion Gap 14 BUN 32 H Creatinine 1.56 H Est GFR ( Amer) 39 L Est GFR (Non-Af Amer) 32 L Glucose 165 H Calcium 9.0 Magnesium 1.7 12/09/17 12/10/17 12/10/17 23:11 04:50 10:52 Troponin I 2.570 1.850 1.450 EKG Comments: Telemetry strip shows sinus rhythm without any sustained tacky or bradycardia arrhythmias. Impressions: Chest X-Ray 12/09/17 16:35 IMPRESSION: CARDIAC ENLARGEMENT. VASCULAR CONGESTION. Assessment & Plan - Diagnosis (1) Non-STEMI (non-ST elevated myocardial infarction) Is this a current diagnosis for this admission?: Yes (2) CHF (congestive heart failure) Qualifiers: Heart failure chronicity: unspecified Is this a current diagnosis for this admission?: Yes (3) Acute metabolic encephalopathy Is this a current diagnosis for this admission?: Yes (5) Hyperlipidemia Qualifiers: Hyperlipidemia type: unspecified Qualified Code(s): E78.5 - Hyperlipidemia , unspecified (6) Hypertension Qualifiers: Hypertension type: essential hypertension Qualified Code(s): I10 - Essential (primary) hypertension - Notes Notes: Non-STEMI: There is history of chest pain prior to presentation. Troponins are elevated. Patient subsequently sustained a non-STEMI secondary to acute coronary syndrome but because of her mental status and general debility, medical management is being recommended. Patient's daughter is agreeable with medical management. Patient's daughter wants patient to receive CPR and chemical cord but not intubation. Patient already on Lovenox, aspirin, beta-blockers, statins, Ranexa therapy. Therefore she is being adequately treated. Patient is not showing any evolving changes but will repeat another EKG. currently seems to be on satisfactory regimen. CHF: Exact etiology not clear but patient could have systolic dysfunction. An echocardiogram has been ordered. Echocardiogram is still pending. Acute metabolic encephalopathy: Patient is noted to have febrile illness. This is being worked up by the hospitalist. Currently improved. Chronic kidney disease: Stage III. Currently stable Dyslipidemia: Continue high potency statin therapy. Hypertension: Currently blood pressure stable. - Time Time with patient: Greater than 35 minutes - More than 50% of the time spent coordinating care, discussing management plans with involved caregivers. Management plans discussed with involved personnels. Medical decision making was of moderate to high complexity, patient's has multiple comorbidities. Medications reviewed and adjusted accordingly: Yes
[2017-12-11] MEDS ORDERED: NITROGLYCERIN 2% OINTMENT 1 GM PACKET ONE (19:52)
[2017-12-11] MEDS ORDERED: POTASSI CL 20 MEQ/50 ML RIDER 20 MEQ/50 ML RTUPB IV ONE (20:03)
[2017-12-11] MEDS: POTASSIUM CHLORIDE 20 MEQ/50 ML RTU IV SCH ×2 (20:07→22:04)
[2017-12-11 20:29] LABS: ALANINE AMINOTRANSFERASE 17 U/L (9-52); ALBUMIN 3.4 g/dL (3.5-5.0); ALKALINE PHOSPHATASE 63 U/L (38-126); ANION GAP 11 (5-19); ASPARTATE AMINO TRANSFERASE 24 U/L (14-36); BILIRUBIN,DIRECT 0.3 mg/dL (0.0-0.4); BILIRUBIN,TOTAL 0.7 mg/dL (0.2-1.3); BLOOD UREA NITROGEN 35 mg/dL (7-20); CALCIUM 8.9 mg/dL (8.4-10.2); CARBON DIOXIDE 26 mmol/L (22-30); CHLORIDE 104 mmol/L (98-107); CREATINE KINASE 108 U/L (30-135); GLUCOSE 158 mg/dL (75-110); SODIUM 141.2 mmol/L (137-145); TOTAL PROTEIN 6.2 g/dL (6.3-8.2)
[2017-12-11] MEDS ORDERED: NITROGLYCERIN 2% OINTMENT 1 GM PACKET TP ONE (20:30)
[2017-12-11 20:32] LABS: POTASSIUM 2.9 mmol/L (3.6-5.0)
[2017-12-11 20:41] LABS: CREATINE KINASE MB 4.94 ng/mL (<4.55)
[2017-12-11 20:43] LABS: TROPONIN I 0.737 ng/mL
[2017-12-11] MEDS: ATORVASTATIN CALCIUM 40 MG TABLET PO SCH (23:24)
[2017-12-12] MEDS: PIPERACILLIN SODIUM/TAZOBACTAM 3.375 GM in NORMAL SALINE 100 ML IV SCH ×5 (01:00→23:12)
[2017-12-12 02:50] LABS: CREATINE KINASE MB 4.05 ng/mL (<4.55); TROPONIN I 0.641 ng/mL
[2017-12-12] MEDS: HYDRALAZINE HCL 50 MG TABLET PO SCH ×3 (06:23→20:18)
[2017-12-12] MEDS: METHYLPREDNISOLONE INJ 40 MG/1 ML SDV IV SCH ×3 (06:23→22:54)
[2017-12-12 08:56] LABS: ABSOLUTE LYMPHOCYTES (AUTO) 0.7 10^3/uL (0.5-4.7); ABSOLUTE MONOCYTES (AUTO) 0.1 10^3/uL (0.1-1.4); ABSOLUTE NEUT (AUTO) 5.2 10^3/uL (1.7-8.2); HEMATOCRIT 29.3 % (36.0-47.0); HEMOGLOBIN 9.8 g/dL (12.0-15.5); LYMPHOCYTES % (AUTO) 11.6 % (13-45); MEAN CORPUSCULAR HEMOGLOBIN 32.8 pg (27.0-33.4); MEAN CORPUSCULAR HGB CONC 33.6 g/dL (32.0-36.0); MEAN CORPUSCULAR VOLUME 98 fl (80-97); MONOCYTES % (AUTO) 2.4 % (3-13); PLATELET COUNT 124 10^3/uL (150-450); RED BLOOD COUNT 2.99 10^6/uL (3.72-5.28); RED CELL DISTRIBUTION WIDTH 13.1 % (11.5-14.0); TOTAL CELLS COUNTED % (AUTO) 100 %; WHITE BLOOD COUNT 6.1 10^3/uL (4.0-10.5)
[2017-12-12 09:14] LABS: ANION GAP 14 (5-19); BLOOD UREA NITROGEN 36 mg/dL (7-20); CALCIUM 8.9 mg/dL (8.4-10.2); CARBON DIOXIDE 21 mmol/L (22-30); CHLORIDE 107 mmol/L (98-107); CREATINE KINASE 60 U/L (30-135); GLUCOSE 139 mg/dL (75-110); POTASSIUM 3.2 mmol/L (3.6-5.0); SODIUM 142.1 mmol/L (137-145)
[2017-12-12 09:25] LABS: CREATINE KINASE MB 3.78 ng/mL (<4.55); TROPONIN I 0.551 ng/mL
--- NOTE | 2017-12-12 09:29 | EKG REPORT ---
SEVERITY:- ABNORMAL ECG - SINUS RHYTHM LEFT VENTRICULAR HYPERTROPHY ANTERIOR Q WAVES, POSSIBLY DUE TO LVH : Confirmed by: La Nena Mejía 12-Dec-2017 09:29:01
[2017-12-12] MEDS ORDERED: AMLODIPINE BESYLATE 5 MG TABLET PO SCH (10:00)
[2017-12-12] MEDS: CARVEDILOL 12.5 MG TABLET PO SCH ×2 (10:55→20:18)
[2017-12-12] MEDS: CLONIDINE HCL 0.2 MG TABLET PO SCH ×2 (10:56→20:17)
[2017-12-12] MEDS: ASPIRIN 81 MG TABLET, ENT COATED PO SCH (10:56)
[2017-12-12] MEDS: NITROGLYCERIN 5 MG (0.2 MG/HR) PATCH.TD24 TD SCH (10:56)
[2017-12-12] MEDS: ROPINIROLE HCL 1 MG TABLET PO SCH ×2 (10:57→18:06)
[2017-12-12] MEDS: RANOLAZINE 500 MG TAB.SR.12H PO SCH ×2 (10:57→22:51)
[2017-12-12] MEDS: FUROSEMIDE INJ/PF 40 MG/4 ML SDV IV SCH (10:58)
[2017-12-12] MEDS: OXYCODONE HCL SR 10 MG TABLET PO SCH ×2 (10:58→22:50)
[2017-12-12] MEDS: NORMAL SALINE 1000 ML 1,000 ML IV PRN (12:37)
[2017-12-12] MEDS: INSULIN LISPRO 100 UNIT/ML 3 ML VIAL SUBCUT PRN ×3 (12:53→22:54)
[2017-12-12] MEDS ORDERED: POTASSIUM CHLORIDE 10 MEQ TABLET.SA PO ONE (14:00)
[2017-12-12] MEDS: ONDANSETRON HCL INJ/PF 4 MG/2 ML SDV IV PRN (14:27)
[2017-12-12] MEDS ORDERED: POTASSIUM CHLORIDE 20 MEQ/15 ML UDCUP PO ONE (14:30)
[2017-12-12 17:09] LABS: APPEARANCE,URINE CLEAR; BILIRUBIN,URINE NEGATIVE (NEGATIVE); COLOR,URINE YELLOW; GLUCOSE, URINE NEGATIVE (NEGATIVE); KETONES,URINE NEGATIVE (NEGATIVE); LEUKOCYTE ESTERASE,URINE NEGATIVE (NEGATIVE); NITRITE,URINE NEGATIVE (NEGATIVE); PROTEIN,URINE 30 mg/dL (NEGATIVE); URINE SPECIFIC GRAVITY 1.014; UROBILINOGEN,URINE NEGATIVE mg/dL (<2.0)
--- NOTE | 2017-12-12 18:13 | PDOC PROGRESS REPORT ---
Subjective Progress Note for:: 12/12/17 Subjective:: Patient complains of mild burning on urination. Review of systems All organ systems evaluated and negative except as in subjective All significant laboratories and diagnostics have been reviewed Reason For Visit: ACUTE METABOLIC ENCEPHALOPATHY, NSTEMI, CHF Physical Exam Vital Signs: Temp Pulse Resp BP Pulse Ox 98.3 F 70 16 185/79 H 94 12/12/17 08:21 12/12/17 08:21 12/12/17 08:21 12/12/17 08:21 12/12/17 08:21 Intake & Output 12/11/17 12/12/17 12/13/17 06:59 06:59 06:59 Intake Total 524 2655 Output Total 2800 2200 Balance -2276 455 Weight 81.3 kg 85.9 kg General appearance: PRESENT: cooperative, obese Head exam: PRESENT: atraumatic, normocephalic Eye exam: PRESENT: conjunctiva pink, EOMI, PERRLA Ear exam: PRESENT: normal external ear exam Mouth exam: PRESENT: moist Neck exam: PRESENT: full ROM. ABSENT: JVD, lymphadenopathy, tenderness Respiratory exam: PRESENT: clear to auscultation michael Cardiovascular exam: PRESENT: RRR. ABSENT: diastolic murmur, systolic murmur Vascular exam: PRESENT: normal capillary refill GI/Abdominal exam: PRESENT: normal bowel sounds, soft. ABSENT: tenderness Extremities exam: PRESENT: full ROM, +2 edema Musculoskeletal exam: PRESENT: ambulatory Neurological exam: PRESENT: alert, awake, oriented to person, oriented to place , oriented to time, oriented to situation, CN II-XII grossly intact Psychiatric exam: PRESENT: appropriate affect, normal mood Skin exam: PRESENT: intact, normal color Results Laboratory Results: 12/12/17 08:22 12/12/17 08:22 12/11/17 12/12/17 12/12/17 20:00 08:22 08:22 WBC 6.1 RBC 2.99 L Hgb 9.8 L Hct 29.3 L MCV 98 H MCH 32.8 MCHC 33.6 RDW 13.1 Plt Count 124 L Seg Neutrophils % 86.0 H Lymphocytes % 11.6 L Monocytes % 2.4 L Eosinophils % 0.0 Basophils % 0.0 Absolute Neutrophils 5.2 Absolute Lymphocytes 0.7 Absolute Monocytes 0.1 Absolute Eosinophils 0.0 Absolute Basophils 0.0 Sodium 141.2 142.1 Potassium 2.9 L* 3.2 L Chloride 104 107 Carbon Dioxide 26 21 L Anion Gap 11 14 BUN 35 H 36 H Creatinine 1.51 H 1.60 H Est GFR ( Amer) 40 L 38 L Est GFR (Non-Af Amer) 33 L 31 L Glucose 158 H 139 H Calcium 8.9 8.9 Magnesium 1.7 Total Bilirubin 0.7 AST 24 ALT 17 Alkaline Phosphatase 63 Ammonia Total Protein 6.2 L Albumin 3.4 L 12/12/17 08:22 WBC RBC Hgb Hct MCV MCH MCHC RDW Plt Count Seg Neutrophils % Lymphocytes % Monocytes % Eosinophils % Basophils % Absolute Neutrophils Absolute Lymphocytes Absolute Monocytes Absolute Eosinophils Absolute Basophils Sodium Potassium Chloride Carbon Dioxide Anion Gap BUN Creatinine Est GFR ( Amer) Est GFR (Non-Af Amer) Glucose Calcium Magnesium Total Bilirubin AST ALT Alkaline Phosphatase Ammonia < 8.7 L Total Protein Albumin 12/09/17 12/10/17 12/10/17 23:11 04:50 10:52 Creatine Kinase CK-MB (CK-2) Troponin I 2.570 1.850 1.450 12/11/17 12/11/17 12/12/17 20:00 20:00 02:05 Creatine Kinase 108 71 CK-MB (CK-2) 4.94 H Troponin I 0.737 12/12/17 12/12/17 12/12/17 02:05 08:22 08:22 Creatine Kinase 60 CK-MB (CK-2) 4.05 3.78 Troponin I 0.641 0.551 Impressions: Chest X-Ray 12/09/17 16:35 IMPRESSION: CARDIAC ENLARGEMENT. VASCULAR CONGESTION. Assessment & Plan - Diagnosis (1) UTI (urinary tract infection) Qualifiers: Hematuria presence: without hematuria Is this a current diagnosis for this admission?: Yes Plan: Is a mixed infection. Urine culture growing pseudomonas aeruginosa and E. coli. Will continue Zosyn and add flomax (2) Acute metabolic encephalopathy Is this a current diagnosis for this admission?: Yes Plan: Resolved (3) Acute on chronic renal failure Qualifiers: Chronic kidney disease stage: stage 3 (moderate) Is this a current diagnosis for this admission?: Yes Plan: Stable (4) Anemia in chronic kidney disease Qualifiers: Chronic kidney disease stage: stage 3 (moderate) Qualified Code(s): N18.3 - Chronic kidney disease, stage 3 (moderate); D63.1 - Anemia in chronic kidney disease; D63.1 - Anemia in chronic kidney disease Is this a current diagnosis for this admission?: Yes Plan: Stable (5) Diastolic heart failure Qualifiers: Heart failure chronicity: acute on chronic Qualified Code(s): I50.33 - Acute on chronic diastolic (congestive) heart failure Is this a current diagnosis for this admission?: Yes Plan: Continue blood pressure control and will discontinue lasix IV and change to oral. Increase Norvasc to 10 mg p.o. daily (6) Dysphagia Qualifiers: Dysphagia type: unspecified Qualified Code(s): R13.10 - Dysphagia, unspecified Is this a current diagnosis for this admission?: Yes Plan: Seen by speech therapy. Patient to continue soft mechanical diet (7) Influenza Is this a current diagnosis for this admission?: No Plan: This was a presumptive diagnosis and will discontinue Tamiflu. Ruled out (8) Non-STEMI (non-ST elevated myocardial infarction) Is this a current diagnosis for this admission?: Yes Plan: Seen by Dr. Mejía. Likely due to myocardial demand ischemia in the setting infection (9) Polymyositis Is this a current diagnosis for this admission?: Yes Plan: Decrease IV steroids and continue oxycodone (10) Hypokalemia Is this a current diagnosis for this admission?: Yes Plan: Continue replacing orally and trend - Time Time Spent with patient: 15-24 minutes Medications reviewed and adjusted accordingly: Yes Anticipated discharge: SNF Within: within 48 hours - Inpatient Certification Based on my medical assessment, after consideration of the patient's comorbidities, presenting symptoms, or acuity I expect that the services needed warrant INPATIENT care.: Yes I certify that my determination is in accordance with my understanding of Medicare's requirements for reasonable and necessary INPATIENT services [42 CFR 412.3e].: Yes Medical Necessity: Need Close Monitoring Due to Risk of Patient Decompensation, Need For Continuous Telemetry Monitoring, Need for IV Antibiotics
--- NOTE | 2017-12-12 18:35 | XCELERA REPORT ---
[address] [address] Transthoracic Echocardiogram Report Name: GUY VICTORIA Age: 77 yrs Gender: Female : 1940 Patient Status: Inpatient Patient Location: [address] [place] [address] Study Date: 12/12/2017 09:32 AM Height: 64 in Weight: 188 lb BSA: 1.9 m2 Procedure: A complete two-dimensional transthoracic echocardiogram was performed (2D, M-mode, spectral and color flow Doppler). The study was technically adequate with some images being suboptimal in quality. Reason For Study: CHF/NSTEMI Ordering Physician: MC SUNG Performed By: Shelley Leon Interpretation Summary The left ventricular ejection fraction is normal. Doppler measurements suggest pseudonormalized left ventricular relaxation, which is associated with grade II/IV or mild to moderate diastolic dysfunction There is mild concentric left ventricular hypertrophy. The left ventricle is grossly normal size. Wall motion cannot be accurately commented on, but no definite regional wall motion abnormalities noted. The right ventricular systolic function is normal. The right atrium is normal in size The left atrium is mildly dilated. There is a trace amount of mitral regurgitation There is no mitral valve stenosis. There is a trace amount of aortic regurgitation There is no aortic valve stenosis There is a trace to mild amount of tricuspid regurgitation There is mild pulmonary hypertension by echo Right ventricular systolic pressure is estimated to be elevated at 30- 40mmHg. The aortic root is not well visualized. The inferior vena cava appeared normal and decreased < 50% with respiration (RAP 10-15 mmHg) Minimal pericardial effusion. MMode/2D Measurements & Calculations RVDd: 2.9 cm LVIDd: 5.3 cm FS: 37.5 % Ao root diam: 2.5 cm IVSd: 0.99 cm LVIDs: 3.3 cm EDV(Teich): 136.0 ml LVPWd: 0.97 cm ESV(Teich): 44.8 ml Ao root area: 5.0 cm2 EF(Teich): 67.0 % LA dimension: 4.4 cm Doppler Measurements & Calculations MV E max romana: MV P1/2t max romana: Ao V2 max: LV V1 max P.3 cm/sec 134.4 cm/sec 162.9 cm/sec 10.0 mmHg MV A max romana: MV P1/2t: 55.5 msec Ao max PG: LV V1 max: 156.3 cm/sec 10.6 mmHg 157.9 cm/sec MV E/A: 0.85 MVA(P1/2t): 4.0 cm2 MV dec slope: 709.5 cm/sec2 MV dec time: 0.19 sec PA V2 max: PI end-d romana: TR max romana: 114.6 cm/sec 169.7 cm/sec 264.7 cm/sec PA max PG: TR max P.3 mmHg 28.0 mmHg Left Ventricle The left ventricle is grossly normal size. There is mild concentric left ventricular hypertrophy. The left ventricular ejection fraction is normal. Doppler measurements suggest pseudonormalized left ventricular relaxation, which is associated with grade II/IV or mild to moderate diastolic dysfunction. Wall motion cannot be accurately commented on, but no definite regional wall motion abnormalities noted. Right Ventricle The right ventricle is grossly normal size. There is normal right ventricular wall thickness. The right ventricular systolic function is normal. Atria The right atrium is normal in size. The left atrium is mildly dilated. Interarterial septum not well visualized and not well dopplered. Cannot comment on ASD/PFO presence. Mitral Valve There is mild to moderate mitral annular calcification. There is no mitral valve stenosis. There is a trace amount of mitral regurgitation. Aortic Valve The aortic valve is grossly normal. There is no aortic valve stenosis. There is a trace amount of aortic regurgitation. Tricuspid Valve The tricuspid valve is not well visualized, but is grossly normal. There is no tricuspid stenosis. There is a trace to mild amount of tricuspid regurgitation. There is mild pulmonary hypertension by echo. Right ventricular systolic pressure is estimated to be elevated at 30-40mmHg. Pulmonic Valve The pulmonic valve is not well visualized. Great Vessels The aortic root is not well visualized. The inferior vena cava appeared normal and decreased < 50% with respiration (RAP 10-15 mmHg). Effusions Minimal pericardial effusion. : MC SUNG > La Nena Mejía
[2017-12-12] MEDS ORDERED: TAMSULOSIN HCL 0.4 MG CAP.SR.24H PO ONE (19:30)
[2017-12-12] MEDS: ATORVASTATIN CALCIUM 40 MG TABLET PO SCH (22:51)
[2017-12-13] MEDS: HYDRALAZINE HCL 50 MG TABLET PO SCH ×3 (05:32→21:16)
[2017-12-13] MEDS: METHYLPREDNISOLONE INJ 40 MG/1 ML SDV IV SCH ×2 (05:33→13:50)
[2017-12-13] MEDS: PIPERACILLIN SODIUM/TAZOBACTAM 3.375 GM in NORMAL SALINE 100 ML IV SCH (05:34)
[2017-12-13] MEDS: AMLODIPINE BESYLATE 5 MG TABLET PO SCH (09:29)
[2017-12-13] MEDS: FUROSEMIDE 20 MG TABLET PO SCH (09:29)
[2017-12-13] MEDS: LEVOFLOXACIN 500 MG TABLET PO SCH (09:29)
[2017-12-13] MEDS: RANOLAZINE 500 MG TAB.SR.12H PO SCH ×2 (09:29→21:15)
[2017-12-13] MEDS: ASPIRIN 81 MG TABLET, ENT COATED PO SCH (09:30)
[2017-12-13] MEDS: ROPINIROLE HCL 1 MG TABLET PO SCH ×2 (09:30→17:43)
[2017-12-13] MEDS: CLONIDINE HCL 0.2 MG TABLET PO SCH ×2 (09:30→21:15)
[2017-12-13] MEDS: OXYCODONE HCL SR 10 MG TABLET PO SCH (09:30)
[2017-12-13] MEDS: CARVEDILOL 12.5 MG TABLET PO SCH ×2 (09:30→21:16)
[2017-12-13] MEDS: NITROGLYCERIN 5 MG (0.2 MG/HR) PATCH.TD24 TD SCH (09:30)
--- NOTE | 2017-12-13 17:00 | PDOC PROGRESS REPORT ---
Subjective Progress Note for:: 12/13/17 Subjective:: No complaints. Daughter updated about patient's condition. Review of systems All organ systems evaluated and negative except as in subjective All significant laboratories and diagnostics have been reviewed Reason For Visit: ACUTE METABOLIC ENCEPHALOPATHY, NSTEMI, CHF Physical Exam Vital Signs: Temp Pulse Resp BP Pulse Ox 98.0 F 54 L 18 149/65 H 96 12/13/17 04:02 12/13/17 04:02 12/13/17 04:02 12/13/17 04:02 12/13/17 04:02 Intake & Output 12/11/17 12/12/17 12/13/17 06:59 06:59 06:59 Intake Total 524 2655 2345 Output Total 2800 2200 1200 Balance -2276 455 1145 Weight 81.3 kg 85.9 kg 88.7 kg General appearance: PRESENT: cooperative, obese Head exam: PRESENT: atraumatic, normocephalic Eye exam: PRESENT: conjunctiva pink, EOMI, PERRLA Ear exam: PRESENT: normal external ear exam Mouth exam: PRESENT: moist Neck exam: PRESENT: full ROM. ABSENT: JVD, lymphadenopathy, tenderness Respiratory exam: PRESENT: clear to auscultation michael Cardiovascular exam: PRESENT: RRR. ABSENT: diastolic murmur, systolic murmur Vascular exam: PRESENT: normal capillary refill GI/Abdominal exam: PRESENT: normal bowel sounds, soft. ABSENT: tenderness Extremities exam: PRESENT: full ROM. ABSENT: pedal edema Musculoskeletal exam: PRESENT: ambulatory Neurological exam: PRESENT: alert, awake, oriented to person, oriented to place , oriented to time, oriented to situation, CN II-XII grossly intact Psychiatric exam: PRESENT: appropriate affect, normal mood Skin exam: PRESENT: intact, normal color Results Laboratory Results: 12/12/17 08:22 12/12/17 08:22 12/12/17 12/12/17 12/12/17 08:22 08:22 08:22 WBC 6.1 RBC 2.99 L Hgb 9.8 L Hct 29.3 L MCV 98 H MCH 32.8 MCHC 33.6 RDW 13.1 Plt Count 124 L Seg Neutrophils % 86.0 H Lymphocytes % 11.6 L Monocytes % 2.4 L Eosinophils % 0.0 Basophils % 0.0 Absolute Neutrophils 5.2 Absolute Lymphocytes 0.7 Absolute Monocytes 0.1 Absolute Eosinophils 0.0 Absolute Basophils 0.0 Sodium 142.1 Potassium 3.2 L Chloride 107 Carbon Dioxide 21 L Anion Gap 14 BUN 36 H Creatinine 1.60 H Est GFR ( Amer) 38 L Est GFR (Non-Af Amer) 31 L Glucose 139 H Calcium 8.9 Magnesium 1.7 Ammonia < 8.7 L Urine Color Urine Appearance Urine pH Ur Specific [place] Urine Protein Urine Glucose (UA) Urine Ketones Urine Blood Urine Nitrite Ur Leukocyte Esterase Urine WBC (Auto) Urine RBC (Auto) 12/12/17 13:45 WBC RBC Hgb Hct MCV MCH MCHC RDW Plt Count Seg Neutrophils % Lymphocytes % Monocytes % Eosinophils % Basophils % Absolute Neutrophils Absolute Lymphocytes Absolute Monocytes Absolute Eosinophils Absolute Basophils Sodium Potassium Chloride Carbon Dioxide Anion Gap BUN Creatinine Est GFR ( Amer) Est GFR (Non-Af Amer) Glucose Calcium Magnesium Ammonia Urine Color YELLOW Urine Appearance CLEAR Urine pH 5.0 Ur Specific [place] 1.014 Urine Protein 30 H Urine Glucose (UA) NEGATIVE Urine Ketones NEGATIVE Urine Blood NEGATIVE Urine Nitrite NEGATIVE Ur Leukocyte Esterase NEGATIVE Urine WBC (Auto) 2 Urine RBC (Auto) 1 12/09/17 12/10/17 12/10/17 23:11 04:50 10:52 Creatine Kinase CK-MB (CK-2) Troponin I 2.570 1.850 1.450 12/11/17 12/11/17 12/12/17 20:00 20:00 02:05 Creatine Kinase 108 71 CK-MB (CK-2) 4.94 H Troponin I 0.737 12/12/17 12/12/17 12/12/17 02:05 08:22 08:22 Creatine Kinase 60 CK-MB (CK-2) 4.05 3.78 Troponin I 0.641 0.551 Impressions: Chest X-Ray 12/09/17 16:35 IMPRESSION: CARDIAC ENLARGEMENT. VASCULAR CONGESTION. Assessment & Plan - Diagnosis (1) UTI (urinary tract infection) Qualifiers: Hematuria presence: without hematuria Is this a current diagnosis for this admission?: Yes Plan: Is a mixed infection. Urine culture growing pseudomonas aeruginosa and E. coli. To discontinue zosyn and place on levaquin. To repeat urine culture before discahrge. (2) Acute metabolic encephalopathy Is this a current diagnosis for this admission?: Yes Plan: Resolved (3) Acute on chronic renal failure Qualifiers: Chronic kidney disease stage: stage 3 (moderate) Is this a current diagnosis for this admission?: Yes Plan: Stable (4) Anemia in chronic kidney disease Qualifiers: Chronic kidney disease stage: stage 3 (moderate) Qualified Code(s): N18.3 - Chronic kidney disease, stage 3 (moderate); D63.1 - Anemia in chronic kidney disease; D63.1 - Anemia in chronic kidney disease Is this a current diagnosis for this admission?: Yes Plan: Stable (5) Diastolic heart failure Qualifiers: Heart failure chronicity: acute on chronic Qualified Code(s): I50.33 - Acute on chronic diastolic (congestive) heart failure Is this a current diagnosis for this admission?: Yes Plan: Continue current management (6) Dysphagia Qualifiers: Dysphagia type: unspecified Qualified Code(s): R13.10 - Dysphagia, unspecified Is this a current diagnosis for this admission?: No Plan: Seen by speech therapy. Patient to continue soft mechanical diet (7) Influenza Is this a current diagnosis for this admission?: No Plan: This was a presumptive diagnosis and will discontinue Tamiflu. Ruled out (8) Non-STEMI (non-ST elevated myocardial infarction) Is this a current diagnosis for this admission?: Yes Plan: Seen by Dr. Mejía. Likely due to myocardial demand ischemia in the setting infection. Continue present treatment (9) Polymyositis Is this a current diagnosis for this admission?: Yes Plan: Discontinue IV steroids and oxycodone. Place her back on tramadol (10) Hypokalemia Is this a current diagnosis for this admission?: Yes Plan: Continue replacing orally and trend - Time Time Spent with patient: 15-24 minutes Medications reviewed and adjusted accordingly: Yes Anticipated discharge: SNF Within: within 48 hours - Inpatient Certification Based on my medical assessment, after consideration of the patient's comorbidities, presenting symptoms, or acuity I expect that the services needed warrant INPATIENT care.: Yes I certify that my determination is in accordance with my understanding of Medicare's requirements for reasonable and necessary INPATIENT services [42 CFR 412.3e].: Yes Medical Necessity: Need Close Monitoring Due to Risk of Patient Decompensation
[2017-12-13] MEDS ORDERED: TRAMADOL HCL 50 MG TABLET PO ONE (18:00)
[2017-12-13] MEDS ORDERED: FAMOTIDINE 20 MG TABLET PO ONE (20:59)
[2017-12-13] MEDS: ATORVASTATIN CALCIUM 40 MG TABLET PO SCH (21:20)
[2017-12-13] MEDS ORDERED: LANSOPRAZOLE 30 MG TAB.RAP.DR PO ONE (21:30)
[2017-12-13] MEDS: HYDRALAZINE HCL INJ/PF 20 MG/1 ML SDV IV PRN (22:24)
[2017-12-13 22:35] LABS: CREATINE KINASE MB 3.44 ng/mL (<4.55)
[2017-12-13 22:50] LABS: TROPONIN I 0.305 ng/mL
[2017-12-14] MEDS ORDERED: TRAMADOL HCL 50 MG TABLET PO SCH (06:00)
[2017-12-14 06:05] LABS: HEMATOCRIT 29.2 % (36.0-47.0); HEMOGLOBIN 10.1 g/dL (12.0-15.5); MEAN CORPUSCULAR HEMOGLOBIN 33.2 pg (27.0-33.4); MEAN CORPUSCULAR HGB CONC 34.6 g/dL (32.0-36.0); MEAN CORPUSCULAR VOLUME 96 fl (80-97); PLATELET COUNT 143 10^3/uL (150-450); RED BLOOD COUNT 3.05 10^6/uL (3.72-5.28); RED CELL DISTRIBUTION WIDTH 13.1 % (11.5-14.0)
[2017-12-14] MEDS: HYDRALAZINE HCL 50 MG TABLET PO SCH ×3 (06:25→21:16)
[2017-12-14] MEDS: LANSOPRAZOLE 30 MG TAB.RAP.DR PO SCH ×2 (06:25→16:38)
[2017-12-14 06:38] LABS: CREATINE KINASE MB 3.11 ng/mL (<4.55)
[2017-12-14 06:44] LABS: TROPONIN I 0.279 ng/mL
[2017-12-14] MEDS: LEVOFLOXACIN 500 MG TABLET PO SCH (11:22)
[2017-12-14] MEDS: CLONIDINE HCL 0.2 MG TABLET PO SCH ×2 (11:22→21:15)
[2017-12-14] MEDS: AMLODIPINE BESYLATE 5 MG TABLET PO SCH (11:22)
[2017-12-14] MEDS: FUROSEMIDE 20 MG TABLET PO SCH (11:22)
[2017-12-14] MEDS: CARVEDILOL 12.5 MG TABLET PO SCH ×2 (11:22→21:16)
[2017-12-14] MEDS: ROPINIROLE HCL 1 MG TABLET PO SCH ×2 (11:23→18:42)
[2017-12-14] MEDS: RANOLAZINE 500 MG TAB.SR.12H PO SCH ×2 (11:23→21:22)
[2017-12-14] MEDS: ASPIRIN 81 MG TABLET, ENT COATED PO SCH (11:23)
[2017-12-14] MEDS: NITROGLYCERIN 5 MG (0.2 MG/HR) PATCH.TD24 TD SCH (11:24)
--- NOTE | 2017-12-14 11:38 | PDOC PROGRESS REPORT ---
Subjective Progress Note for:: 12/13/17 Subjective:: Patient seems to be doing better with significant improvement. Patient noted more alert but still confused. There is no complaints of chest pains or any shortness of breath. She is laying in bed and is comfortable. Patient is maintaining sinus rhythm. Review of systems: Rest review of systems negative. Medications: Medications have been reviewed. Reason For Visit: ACUTE METABOLIC ENCEPHALOPATHY, NSTEMI, CHF Physical Exam Vital Signs: Temp Pulse Resp BP Pulse Ox 98.0 F 63 16 185/78 H 93 12/13/17 19:42 12/13/17 19:42 12/13/17 19:42 12/13/17 19:42 12/13/17 19:42 Intake & Output 12/12/17 12/13/17 12/14/17 06:59 06:59 06:59 Intake Total 2655 2345 1311 Output Total 2200 1200 Balance 455 1145 1311 Weight 85.9 kg 88.7 kg Exam: GENERAL: well-nourished and in no acute distress. Patient is alert, oriented mentation is better but not fully oriented. HEAD: Atraumatic, normocephalic. EYES: Pupils equal round and reactive to light, extraocular movements intact, sclera anicteric, conjunctiva are normal. ENT: TMs normal, nares patent, oropharynx clear without exudates. Moist mucous membranes. No oral ulcerations or bleeding gums noted NECK: supple without lymphadenopathy or JVD. Trachea is central. No cervical or axillary lymphadenopathy noted. Carotids are 2+ LUNGS: Breath sounds bibasilar fine crackles at bases. No significant dullness noted. CHEST: Palpation of chest wall shows no significant chest wall tenderness. HEART: [place], No PSH, 2/6 JAQUI aortic area, 1/6 multani systolic murmur mitral area, rubs or gallops. ABDOMEN: Soft, no significant tenderness appreciated, normoactive bowel sounds. No guarding, no rebound. No rigidity noted . No masses appreciated. EXTREMITIES: Pedal pulses are 1-2+, no calf tenderness noted, Trace + pedal edema noted. No clubbing or cyanosis. NEUROLOGICAL: Patient is alert, on quick neurological exam no significant focal deficit noted PSYCH: Mood noted to be within normal limits. Judgment not checked. SKIN: No significant ecchymosis, rash, ulcerations or signs of pruritus noted. MUSCULOSKELETAL EXAM: No significant joint swelling noted. Results Laboratory Results: 12/12/17 08:22 12/12/17 08:22 12/09/17 12/10/17 12/10/17 23:11 04:50 10:52 Creatine Kinase CK-MB (CK-2) Troponin I 2.570 1.850 1.450 12/11/17 12/11/17 12/12/17 20:00 20:00 02:05 Creatine Kinase 108 71 CK-MB (CK-2) 4.94 H Troponin I 0.737 12/12/17 12/12/17 12/12/17 02:05 08:22 08:22 Creatine Kinase 60 CK-MB (CK-2) 4.05 3.78 Troponin I 0.641 0.551 Impressions: Chest X-Ray 12/09/17 16:35 IMPRESSION: CARDIAC ENLARGEMENT. VASCULAR CONGESTION. Assessment & Plan - Diagnosis (1) Non-STEMI (non-ST elevated myocardial infarction) Is this a current diagnosis for this admission?: Yes (2) CHF (congestive heart failure) Qualifiers: Heart failure chronicity: unspecified Is this a current diagnosis for this admission?: Yes (3) Acute metabolic encephalopathy Is this a current diagnosis for this admission?: Yes (5) Hyperlipidemia Qualifiers: Hyperlipidemia type: unspecified Qualified Code(s): E78.5 - Hyperlipidemia , unspecified (6) Hypertension Qualifiers: Hypertension type: essential hypertension Qualified Code(s): I10 - Essential (primary) hypertension - Notes Notes: Non-STEMI: There is history of chest pain prior to presentation. Troponins are elevated. Patient subsequently sustained a non-STEMI secondary to acute coronary syndrome but because of her mental status and general debility, medical management is being recommended. Patient's daughter is agreeable with medical management. Patient's daughter wants patient to receive CPR and chemical cord but not intubation. Patient already on Lovenox, aspirin, beta-blockers, statins, Ranexa therapy. Therefore she is being adequately treated. CHF: This seems related to diastolic dysfunction. 2D echo shows well-preserved LVEF. No significant valvular abnormalities noted. Acute metabolic encephalopathy: Currently improved. Possibly related to febrile illness. Chronic kidney disease: Stage III. Currently stable Dyslipidemia: Continue high potency statin therapy. Hypertension: Currently blood pressure stable. Blood pressure goal in this elderly lady should be 150/90 or less. Ms. Davey has done well from cardiac standpoint. Patient has been stable for last several days from cardiac standpoint. We will therefore sign off. Please reconsult if needed. - Time Time with patient: 15-25 minutes - More than 50% of the time spent coordinating care, discussing management plans with involved caregivers. Management plans discussed with involved personnels. Medical decision making was of moderate to high complexity, patient's has multiple comorbidities. Medications reviewed and adjusted accordingly: Yes
--- NOTE | 2017-12-14 12:56 | PDOC PROGRESS REPORT ---
Subjective Progress Note for:: 12/14/17 Subjective:: No complaints. Review of systems All organ systems evaluated and negative except as in subjective All significant laboratories and diagnostics have been reviewed Reason For Visit: ACUTE METABOLIC ENCEPHALOPATHY, NSTEMI, CHF Physical Exam Vital Signs: Temp Pulse Resp BP Pulse Ox 98.1 F 62 19 151/77 H 97 12/14/17 03:18 12/14/17 03:18 12/14/17 03:18 12/14/17 03:18 12/14/17 03:18 Intake & Output 12/12/17 12/13/17 12/14/17 06:59 06:59 06:59 Intake Total 2655 2345 1411 Output Total 2200 1200 700 Balance 455 1145 711 Weight 85.9 kg 88.7 kg 89.1 kg General appearance: PRESENT: cooperative, morbidly obese Head exam: PRESENT: atraumatic, normocephalic Eye exam: PRESENT: conjunctiva pink, EOMI, PERRLA Ear exam: PRESENT: normal external ear exam Neck exam: PRESENT: full ROM. ABSENT: JVD, lymphadenopathy, tenderness Respiratory exam: PRESENT: clear to auscultation michael, symmetrical. ABSENT: tachypnea, unlabored Cardiovascular exam: PRESENT: RRR. ABSENT: diastolic murmur, systolic murmur Vascular exam: PRESENT: normal capillary refill GI/Abdominal exam: PRESENT: normal bowel sounds, soft. ABSENT: tenderness Extremities exam: PRESENT: full ROM, +2 edema. ABSENT: pedal edema, tenderness Musculoskeletal exam: PRESENT: ambulatory Neurological exam: PRESENT: alert, awake, oriented to person, oriented to place , oriented to time, oriented to situation Psychiatric exam: PRESENT: appropriate affect, normal mood Skin exam: PRESENT: intact, normal color Results Laboratory Results: 12/14/17 04:57 12/12/17 08:22 12/14/17 04:57 WBC 7.0 RBC 3.05 L Hgb 10.1 L Hct 29.2 L MCV 96 MCH 33.2 MCHC 34.6 RDW 13.1 Plt Count 143 L 12/09/17 12/10/17 12/10/17 23:11 04:50 10:52 Creatine Kinase CK-MB (CK-2) Troponin I 2.570 1.850 1.450 02/13/18 02/13/18 02/14/18 20:00 20:00 02:05 Creatine Kinase 108 71 CK-MB (CK-2) 4.94 H Troponin I 0.737 12/12/17 12/12/17 12/12/17 02:05 08:22 08:22 Creatine Kinase 60 CK-MB (CK-2) 4.05 3.78 Troponin I 0.641 0.551 12/13/17 12/13/17 12/14/17 21:40 21:40 04:57 Creatine Kinase 45 43 CK-MB (CK-2) 3.44 Troponin I 0.305 12/14/17 04:57 Creatine Kinase CK-MB (CK-2) 3.11 Troponin I 0.279 Impressions: Chest X-Ray 12/09/17 16:35 IMPRESSION: CARDIAC ENLARGEMENT. VASCULAR CONGESTION. Assessment & Plan - Diagnosis (1) UTI (urinary tract infection) Qualifiers: Hematuria presence: without hematuria Is this a current diagnosis for this admission?: Yes Plan: Is a mixed infection. Urine culture growing pseudomonas aeruginosa and E. coli. To continue levaquin oral. Daughter wishes to have urine rechecked to verify clearing of infection and she is concerned about the care at [facility] (2) Acute metabolic encephalopathy Is this a current diagnosis for this admission?: Yes Plan: Resolved (3) Acute on chronic renal failure Qualifiers: Chronic kidney disease stage: stage 3 (moderate) Is this a current diagnosis for this admission?: Yes Plan: Stable (4) Anemia in chronic kidney disease Qualifiers: Chronic kidney disease stage: stage 3 (moderate) Qualified Code(s): N18.3 - Chronic kidney disease, stage 3 (moderate); D63.1 - Anemia in chronic kidney disease; D63.1 - Anemia in chronic kidney disease Is this a current diagnosis for this admission?: Yes Plan: Stable (5) Diastolic heart failure Qualifiers: Heart failure chronicity: acute on chronic Qualified Code(s): I50.33 - Acute on chronic diastolic (congestive) heart failure Is this a current diagnosis for this admission?: Yes Plan: Continue current management. Blood pressure stabilizing (6) Dysphagia Qualifiers: Dysphagia type: unspecified Qualified Code(s): R13.10 - Dysphagia, unspecified Is this a current diagnosis for this admission?: No Plan: Seen by speech therapy. Patient to continue soft mechanical diet (7) Influenza Is this a current diagnosis for this admission?: No Plan: This was a presumptive diagnosis and will discontinue Tamiflu. Ruled out (8) Non-STEMI (non-ST elevated myocardial infarction) Is this a current diagnosis for this admission?: Yes Plan: Seen by Dr. Mejía. Due to myocardial demand ischemia in the setting infection. Continue present treatment (9) Polymyositis Is this a current diagnosis for this admission?: Yes Plan: Stable. Of steroids and continue tramadol as needed (10) Hypokalemia Is this a current diagnosis for this admission?: Yes Plan: Replaced - Time Time Spent with patient: 15-24 minutes Medications reviewed and adjusted accordingly: Yes Anticipated discharge: SNF Within: within 48 hours - Inpatient Certification Based on my medical assessment, after consideration of the patient's comorbidities, presenting symptoms, or acuity I expect that the services needed warrant INPATIENT care.: Yes I certify that my determination is in accordance with my understanding of Medicare's requirements for reasonable and necessary INPATIENT services [42 CFR 412.3e].: Yes Medical Necessity: Need Close Monitoring Due to Risk of Patient Decompensation, Need for Pain Control
[2017-12-14 15:10] LABS: CREATINE KINASE MB 2.89 ng/mL (<4.55); TROPONIN I 0.292 ng/mL
[2017-12-14] MEDS: CALCIUM CARBONATE 500 MG TAB.CHEW PO PRN (21:15)
[2017-12-14] MEDS: ONDANSETRON HCL INJ/PF 4 MG/2 ML SDV IV PRN (21:25)
[2017-12-14] MEDS: TRAMADOL HCL 50 MG TABLET PO PRN (21:25)
[2017-12-14] MEDS: ATORVASTATIN CALCIUM 40 MG TABLET PO SCH (21:33)
[2017-12-15] MEDS: LANSOPRAZOLE 30 MG TAB.RAP.DR PO SCH ×2 (05:12→18:10)
[2017-12-15] MEDS: HYDRALAZINE HCL 50 MG TABLET PO SCH ×3 (05:12→22:47)
[2017-12-15] MEDS: ONDANSETRON HCL INJ/PF 4 MG/2 ML SDV IV PRN ×2 (05:13→22:49)
[2017-12-15] MEDS: NITROGLYCERIN 5 MG (0.2 MG/HR) PATCH.TD24 TD SCH (09:37)
[2017-12-15] MEDS: POLYETHYLENE GLYCOL 3350 POWDER 17 GM/1 PACKET PO SCH (09:37)
[2017-12-15] MEDS: FUROSEMIDE 20 MG TABLET PO SCH (09:37)
[2017-12-15] MEDS: CARVEDILOL 12.5 MG TABLET PO SCH ×2 (09:38→22:47)
[2017-12-15] MEDS: AMLODIPINE BESYLATE 5 MG TABLET PO SCH (09:38)
[2017-12-15] MEDS: CLONIDINE HCL 0.2 MG TABLET PO SCH ×2 (09:38→22:47)
[2017-12-15] MEDS: LEVOFLOXACIN 500 MG TABLET PO SCH (09:38)
[2017-12-15] MEDS: ASPIRIN 81 MG TABLET, ENT COATED PO SCH (09:38)
[2017-12-15] MEDS: ROPINIROLE HCL 1 MG TABLET PO SCH ×2 (09:39→18:10)
[2017-12-15] MEDS: RANOLAZINE 500 MG TAB.SR.12H PO SCH ×2 (09:39→22:46)
--- NOTE | 2017-12-15 16:44 | PDOC PROGRESS REPORT ---
Subjective Progress Note for:: 12/15/17 Subjective:: no complaints this morning, seems to be back to baseline, alert and aware of her surroundings. she denies chest pain, headache, numbness/tingling, n/v/d, fevers/chills. ROS: all systems reviewed, see above, remaining systems negative. Reason For Visit: ACUTE METABOLIC ENCEPHALOPATHY, NSTEMI, CHF Physical Exam Vital Signs: Temp Pulse Resp BP Pulse Ox 98.1 F 62 20 147/66 H 97 12/15/17 11:18 12/15/17 11:18 12/15/17 11:18 12/15/17 11:18 12/15/17 11:18 Intake & Output 12/14/17 12/15/17 12/16/17 06:59 06:59 06:59 Intake Total 1411 1273 210 Output Total 700 2400 400 Balance 711 -0857 -190 Weight 89.1 kg 88.1 kg General appearance: PRESENT: no acute distress, obese, well-developed Head exam: PRESENT: atraumatic, normocephalic Eye exam: ABSENT: conjunctival injection, scleral icterus Mouth exam: PRESENT: moist, tongue midline Respiratory exam: PRESENT: clear to auscultation michael, unlabored. ABSENT: chest wall tenderness, rhonchi, wheezes Cardiovascular exam: PRESENT: RRR. ABSENT: diastolic murmur, systolic murmur GI/Abdominal exam: PRESENT: normal bowel sounds, soft. ABSENT: tenderness Neurological exam: PRESENT: alert, awake, oriented to person, oriented to place , oriented to time, oriented to situation Psychiatric exam: PRESENT: appropriate affect, normal mood Skin exam: PRESENT: warm Results Laboratory Results: 12/14/17 04:57 12/12/17 08:22 12/13/17 10:00 Catheterized Urine Urine Culture - Final C.albicans/C.dubliniensis 12/09/17 12/10/17 12/10/17 23:11 04:50 10:52 Creatine Kinase CK-MB (CK-2) Troponin I 2.570 1.850 1.450 12/11/17 12/11/17 12/12/17 20:00 20:00 02:05 Creatine Kinase 108 71 CK-MB (CK-2) 4.94 H Troponin I 0.737 12/12/17 12/12/17 12/12/17 02:05 08:22 08:22 Creatine Kinase 60 CK-MB (CK-2) 4.05 3.78 Troponin I 0.641 0.551 12/13/17 12/13/17 12/14/17 21:40 21:40 04:57 Creatine Kinase 45 43 CK-MB (CK-2) 3.44 Troponin I 0.305 12/14/17 12/14/17 12/14/17 04:57 14:01 14:01 Creatine Kinase 49 CK-MB (CK-2) 3.11 2.89 Troponin I 0.279 0.292 Assessment & Plan - Diagnosis (1) UTI (urinary tract infection) Qualifiers: Urinary tract infection type: acute cystitis Hematuria presence: without hematuria Qualified Code(s): N30.00 - Acute cystitis without hematuria Is this a current diagnosis for this admission?: Yes Plan: polymicrobial from pansens pseudomonas and e coli; continue levaquin (2) Acute metabolic encephalopathy Is this a current diagnosis for this admission?: Yes Plan: seems resolved (3) Acute on chronic renal failure Qualifiers: Chronic kidney disease stage: stage 3 (moderate) Is this a current diagnosis for this admission?: Yes Plan: Scr stable (4) CKD (chronic kidney disease), stage III Is this a current diagnosis for this admission?: Yes Plan: Scr stable (5) Diastolic heart failure Qualifiers: Heart failure chronicity: acute on chronic Qualified Code(s): I50.33 - Acute on chronic diastolic (congestive) heart failure Is this a current diagnosis for this admission?: Yes Plan: seems euvolemic at this time (6) Hypokalemia Is this a current diagnosis for this admission?: Yes Plan: replaced (7) Non-STEMI (non-ST elevated myocardial infarction) Is this a current diagnosis for this admission?: Yes Plan: stable; medical management only at this time, cardio following. (8) Polymyositis Is this a current diagnosis for this admission?: Yes Plan: stable off steroids, tramadol as needed - Time Time Spent with patient: 25-34 minutes - Plan Summary Plan Summary: back to [facility] Sunday most likely
[2017-12-15] MEDS: ATORVASTATIN CALCIUM 40 MG TABLET PO SCH (22:52)
[2017-12-16] MEDS: CALCIUM CARBONATE 500 MG TAB.CHEW PO PRN (02:47)
[2017-12-16] MEDS: LANSOPRAZOLE 30 MG TAB.RAP.DR PO SCH ×2 (06:10→17:45)
[2017-12-16] MEDS: HYDRALAZINE HCL 50 MG TABLET PO SCH ×3 (06:10→22:48)
[2017-12-16] MEDS: TRAMADOL HCL 50 MG TABLET PO PRN (07:57)
[2017-12-16] MEDS: ROPINIROLE HCL 1 MG TABLET PO SCH ×2 (09:13→17:44)
[2017-12-16] MEDS: RANOLAZINE 500 MG TAB.SR.12H PO SCH ×2 (09:13→22:51)
[2017-12-16] MEDS: AMLODIPINE BESYLATE 5 MG TABLET PO SCH (09:14)
[2017-12-16] MEDS: LEVOFLOXACIN 500 MG TABLET PO SCH (09:14)
[2017-12-16] MEDS: CARVEDILOL 12.5 MG TABLET PO SCH ×2 (09:15→22:49)
[2017-12-16] MEDS: FUROSEMIDE 20 MG TABLET PO SCH (09:15)
[2017-12-16] MEDS: ASPIRIN 81 MG TABLET, ENT COATED PO SCH (09:15)
[2017-12-16] MEDS: NITROGLYCERIN 5 MG (0.2 MG/HR) PATCH.TD24 TD SCH (09:15)
[2017-12-16] MEDS: POLYETHYLENE GLYCOL 3350 POWDER 17 GM/1 PACKET PO SCH (09:15)
[2017-12-16] MEDS: CLONIDINE HCL 0.2 MG TABLET PO SCH ×2 (09:15→22:49)
[2017-12-16] MEDS ORDERED: HYDROMORPHONE HCL INJ/PF 2 MG/ML AMPULE ONE (09:22)
[2017-12-16] MEDS ORDERED: LACTULOSE SYRUP 20 GM/30 ML UDCUP PO PRN (10:42)
--- NOTE | 2017-12-16 11:27 | PDOC PROGRESS REPORT ---
Subjective Progress Note for:: 12/16/17 Subjective:: complaining of no BM for "last several days" but denies abd pain or n/v; mentally seems to be back to baseline, alert and aware of her surroundings. she denies chest pain, headache, numbness/tingling, fevers/chills. ROS: all systems reviewed, see above, remaining systems negative. Reason For Visit: ACUTE METABOLIC ENCEPHALOPATHY, NSTEMI, CHF Physical Exam Vital Signs: Temp Pulse Resp BP Pulse Ox 97.6 F 66 19 160/76 H 97 12/16/17 07:42 12/16/17 07:42 12/16/17 07:42 12/16/17 07:42 12/16/17 07:42 Intake & Output 12/15/17 12/16/17 12/17/17 06:59 06:59 06:59 Intake Total 1273 780 Output Total 2400 2500 Balance -1127 -1720 Weight 88.1 kg 88 kg General appearance: PRESENT: no acute distress, obese, well-developed Head exam: PRESENT: atraumatic, normocephalic Eye exam: ABSENT: conjunctival injection, scleral icterus Mouth exam: PRESENT: moist, tongue midline Respiratory exam: PRESENT: clear to auscultation michael, unlabored. ABSENT: chest wall tenderness, rhonchi, wheezes Cardiovascular exam: PRESENT: RRR. ABSENT: diastolic murmur, systolic murmur GI/Abdominal exam: PRESENT: normal bowel sounds, soft. ABSENT: tenderness or fullness to palpation Neurological exam: PRESENT: alert, awake, oriented to person, oriented to place , oriented to time, oriented to situation; remembers me from yesterday Psychiatric exam: PRESENT: appropriate affect, normal mood Results Laboratory Results: 12/14/17 04:57 12/12/17 08:22 12/13/17 10:00 Catheterized Urine Urine Culture - Final C.albicans/C.dubliniensis 12/09/17 12/10/17 12/10/17 23:11 04:50 10:52 Creatine Kinase CK-MB (CK-2) Troponin I 2.570 1.850 1.450 12/11/17 12/11/17 12/12/17 20:00 20:00 02:05 Creatine Kinase 108 71 CK-MB (CK-2) 4.94 H Troponin I 0.737 12/12/17 12/12/17 12/12/17 02:05 08:22 08:22 Creatine Kinase 60 CK-MB (CK-2) 4.05 3.78 Troponin I 0.641 0.551 12/13/17 12/13/17 12/14/17 21:40 21:40 04:57 Creatine Kinase 45 43 CK-MB (CK-2) 3.44 Troponin I 0.305 12/14/17 12/14/17 12/14/17 04:57 14:01 14:01 Creatine Kinase 49 CK-MB (CK-2) 3.11 2.89 Troponin I 0.279 0.292 Assessment & Plan - Diagnosis (1) UTI (urinary tract infection) Qualifiers: Urinary tract infection type: acute cystitis Hematuria presence: without hematuria Qualified Code(s): N30.00 - Acute cystitis without hematuria Is this a current diagnosis for this admission?: Yes Plan: improved; polymicrobial from pansens pseudomonas and e coli; continue levaquin (2) Acute metabolic encephalopathy Is this a current diagnosis for this admission?: Yes Plan: resolved; back to baseline (3) Acute on chronic renal failure Qualifiers: Chronic kidney disease stage: stage 3 (moderate) Is this a current diagnosis for this admission?: Yes Plan: Scr stable, last ck'd 12/12 so will ck again in am (4) CKD (chronic kidney disease), stage III Is this a current diagnosis for this admission?: Yes (5) Diastolic heart failure Qualifiers: Heart failure chronicity: acute on chronic Qualified Code(s): I50.33 - Acute on chronic diastolic (congestive) heart failure Is this a current diagnosis for this admission?: Yes Plan: appears euvolemic to me (6) Hypokalemia Is this a current diagnosis for this admission?: Yes Plan: replaced; continue low dose replacement while on lasix and ck again in am with Mg (7) Non-STEMI (non-ST elevated myocardial infarction) Is this a current diagnosis for this admission?: Yes Plan: stable; medical management only at this time, cardio following. (8) Polymyositis Is this a current diagnosis for this admission?: Yes Plan: stable off steroids, tramadol as needed - Time Time Spent with patient: 25-34 minutes Medications reviewed and adjusted accordingly: Yes Anticipated discharge: SNF - back to [facility] as early as tomorrow if her electrolytes ck out ok and no new events overnight
[2017-12-16] MEDS ORDERED: BISACODYL 5 MG TABEC PO ONE (11:30)
[2017-12-16] MEDS ORDERED: SENNOSIDES/DOCUSATE 8.6-50 MG 1 EACH TABLET PO ONE (11:30)
[2017-12-16] MEDS ORDERED: POTASSIUM CHLORIDE 10 MEQ TABLET.SA PO ONE (12:00)
[2017-12-16] MEDS: SENNOSIDES/DOCUSATE 8.6-50 MG 1 EACH TABLET PO SCH (17:44)
[2017-12-16] MEDS: ONDANSETRON HCL INJ/PF 4 MG/2 ML SDV IV PRN (20:05)
[2017-12-16] MEDS ORDERED: BISACODYL 10 MG SUPP.RECT PR PRN (21:05)
[2017-12-16] MEDS: ATORVASTATIN CALCIUM 40 MG TABLET PO SCH (22:55)
[2017-12-17] MEDS: HYDRALAZINE HCL INJ/PF 20 MG/1 ML SDV IV PRN (04:49)
[2017-12-17 05:18] LABS: HEMATOCRIT 29.5 % (36.0-47.0); HEMOGLOBIN 10.2 g/dL (12.0-15.5); MEAN CORPUSCULAR HEMOGLOBIN 33.1 pg (27.0-33.4); MEAN CORPUSCULAR HGB CONC 34.5 g/dL (32.0-36.0); MEAN CORPUSCULAR VOLUME 96 fl (80-97); PLATELET COUNT 186 10^3/uL (150-450); RED BLOOD COUNT 3.07 10^6/uL (3.72-5.28); RED CELL DISTRIBUTION WIDTH 13.2 % (11.5-14.0); WHITE BLOOD COUNT 9.4 10^3/uL (4.0-10.5)
[2017-12-17 05:38] LABS: ANION GAP 11 (5-19); BLOOD UREA NITROGEN 29 mg/dL (7-20); CALCIUM 9.1 mg/dL (8.4-10.2); CARBON DIOXIDE 25 mmol/L (22-30); CHLORIDE 96 mmol/L (98-107); GLUCOSE 115 mg/dL (75-110); POTASSIUM 3.3 mmol/L (3.6-5.0); SODIUM 132.3 mmol/L (137-145)
[2017-12-17] MEDS: HYDRALAZINE HCL 50 MG TABLET PO SCH ×2 (06:26→13:23)
[2017-12-17] MEDS: LANSOPRAZOLE 30 MG TAB.RAP.DR PO SCH (06:27)
[2017-12-17] MEDS: CLONIDINE HCL 0.2 MG TABLET PO SCH (09:15)
[2017-12-17] MEDS: CARVEDILOL 12.5 MG TABLET PO SCH (09:15)
[2017-12-17] MEDS: ROPINIROLE HCL 1 MG TABLET PO SCH (09:16)
[2017-12-17] MEDS: AMLODIPINE BESYLATE 5 MG TABLET PO SCH (09:16)
[2017-12-17] MEDS: ASPIRIN 81 MG TABLET, ENT COATED PO SCH (09:16)
[2017-12-17] MEDS: FUROSEMIDE 20 MG TABLET PO SCH (09:16)
[2017-12-17] MEDS: RANOLAZINE 500 MG TAB.SR.12H PO SCH (09:16)
[2017-12-17] MEDS: POLYETHYLENE GLYCOL 3350 POWDER 17 GM/1 PACKET PO SCH (09:17)
[2017-12-17] MEDS: NITROGLYCERIN 5 MG (0.2 MG/HR) PATCH.TD24 TD SCH (09:17)
[2017-12-17] MEDS: LEVOFLOXACIN 500 MG TABLET PO SCH (09:17)
[2017-12-17] MEDS: SENNOSIDES/DOCUSATE 8.6-50 MG 1 EACH TABLET PO SCH (09:20)
[2017-12-17] MEDS ORDERED: POTASSIUM CHLORIDE 10 MEQ TABLET.SA PO SCH (10:00)
[2017-12-17 11:40] VITALS: BP 153/74
--- NOTE | 2017-12-17 11:44 | PDOC TRANSFER SUMMARY ---
General - Admit/Disc Date/PCP Admission Date/Primary Care Provider: 12/09/17 20:00 KATY POSADAS MD - Discharge Diagnosis (1) Acute metabolic encephalopathy Is this a current diagnosis for this admission?: Yes (2) Acute on chronic renal failure Is this a current diagnosis for this admission?: Yes (3) Anemia in chronic kidney disease Is this a current diagnosis for this admission?: Yes (4) Diastolic heart failure Is this a current diagnosis for this admission?: Yes (5) Hypokalemia Is this a current diagnosis for this admission?: Yes (6) Non-STEMI (non-ST elevated myocardial infarction) Is this a current diagnosis for this admission?: Yes (7) Polymyositis Is this a current diagnosis for this admission?: Yes (8) UTI (urinary tract infection) Is this a current diagnosis for this admission?: Yes - Additional Information Resuscitation Status: Do Not Intubate Home Medications: Acetaminophen [Tylenol 325 mg Tablet] 650 mg PO Q4HP PRN 12/10/17 Ascorbic Acid [Vitamin C 500 mg Tablet] 500 mg PO DAILY 12/10/17 Calcium Carbonate [Tums Chewable 500 mg Tab.chew] 1,000 mg PO Q2HP PRN 12/10/17 Cyanocobalamin (Vitamin B-12) [Vitamin B-12 Inj 1000 Mcg/1 ml Vial] 1,000 mcg INJ [id number] 12/10/17 Diphenhydramine HCl [Benadryl] 50 mg PO Q6HP PRN 12/10/17 Docusate Sodium [Colace 100 mg Capsule] 100 mg PO BID 12/10/17 Febuxostat [Uloric 40 mg Tablet] 40 mg PO DAILY 12/10/17 Fluticasone Propionate [Flonase Nasal [place] 50 Mcg/[place] 16 gm] 2 spray NASL DAILY 12/10/17 Folic Acid 1 mg PO DAILY 12/10/17 Furosemide [Lasix 20 mg Tablet] 20 mg PO MOWEFR 12/10/17 Gabapentin [Neurontin 300 mg Capsule] 300 mg PO Q8 12/10/17 Hydralazine HCl [Apresoline 50 mg Tablet] 50 mg PO TID 12/10/17 Hydrocortisone [Cortef 10 Mg Tablet] 10 mg PO DAILY 12/10/17 Insulin Lispro [Humalog] 0 unit SUBCUT .SLD SCALE 12/10/17 L.acidoph,Paracasei, B.lactis [Probiotic] 1 cap PO BID 12/10/17 Lidocaine [Lidoderm 5% (700 mg) Transdermal Patch] 1 patch TOP DAILY 12/10/17 Losartan Potassium [Cozaar 50 mg Tablet] 50 mg PO DAILY 12/10/17 Magnesium Oxide [Mag-Ox 400 mg Tablet] 400 mg PO DAILY 12/10/17 Montelukast Sodium [Singulair 10 mg Tablet] 10 mg PO QHS 12/10/17 Multivitamin/Iron/Folic Acid [Centrum Complete Multivit Tab] 1 each PO DAILY 10/15 [place]-3 Fatty Acids/Fish Oil [Fish Oil 1,000 mg Capsule] 2 cap PO BID 12/10/17 Polyvinyl Alcohol [Liquitears] 2 drop OU QID 12/10/17 Potassium Chloride [Kaon-Cl 20 Meq/15 Ml Udcup] 10 meq PO DAILY 12/10/17 Ranitidine HCl [Zantac] 300 mg PO BID 12/10/17 Ropinirole HCl [Requip] 1 mg PO BID 12/10/17 Tramadol HCl [Ultram 50 mg Tablet] 100 mg PO Q6HP PRN 12/10/17 Wheat Dextrin [Benefiber] 1 packet PO BIDP PRN 12/10/17 Carvedilol [Coreg 25 mg Tablet] 1 tab PO Q12 12/11/17 Clonidine HCl [Catapres 0.2 mg Tablet] 0.2 mg PO Q12 12/11/17 History of Present Illness Admission Date/PCP: 12/09/17 20:00 KATY POSADAS MD History of Present Illness: HPI as per admitting physician. Admission Date/PCP: 12/09/17 20:00 KATY POSADAS MD Patient complains of: Change in mentation and fever History of Present Illness: GUY VICTORIA is a 77 year old female who resides at [facility]. She has a history of polymyositis, hypertension, type 2 diabetes, CKD stage III. Patient is currently altered and unable to give any history. Patient just says okay repeatedly. Per patient's daughter who is at bedside she states that she is complained of several days of just not feeling well. However they stated that she was stable. On Sunday for she complained of chest pain while at [facility] she was given sublingual nitroglycerin and her chest pain went away. Today patient was found to be confused and was sent here for further evaluation. On presentation patient was febrile with T-max of 102.5. Patient was also found to have an elevated troponin of 3. She was noted to have vascular congestion on chest x-ray. UA was unimpressive. Per patient's daughter usually patient becomes confused due to a urinary tract infection. Per the daughter patient is usually very sharp. Patient does not do much activity on her own due to her polymyositis. Patient is able to transfer from bed to chair or chair to bed with assistance. Patient does have difficulty with eating and was working with speech therapy. All patient medications have to be crushed and patient is on a modified diet. Hospitalist was called to admit patient for acute metabolic encephalopathy, febrile illness non-STEMI Hospital Course Hospital Course: The patient was admitted to the hospital and noted to have an upward trending troponin which topped out at 3.0. Cardiology was consulted for N STEMI. She was started on Lovenox, aspirin, beta blockers, statin and Ranexa therapy. Echocardiogram was done and showed preserved LVEF. Therefore diastolic heart failure was diagnosed. She was treated with blood pressure control of 150/90 or less and Lasix. The patient was noted to have a urinary tract infection was initially started on Zosyn. Pseudomonas and E. coli eventually grew out and the patient was ultimately changed to Levaquin. Anemia of chronic disease was monitored. The patient was noted to have acute on chronic renal failure and was treated with fluids. She was much improved prior to discharge at a creatinine of 1.4 The patient initially presented with acute metabolic encephalopathy that was thought to be secondary to underlying infection. Influenza was initially suspected and the presumed diagnosis. Influenza screen was negative and Tamiflu was discontinued. UTI was eventually found and treated as above. This resolved with treatment of the patient's urinary tract infection. The patient showed evidence of dysphasia and was seen by speech therapy. Mechanical soft diet was recommended. Her polymyositis was treated initially with IV steroids and was gradually weaned back. The patient is currently stable and ready for [facility] with appropriate follow-up care as an outpatient Physical Exam Vital Signs: Temp Pulse Resp BP Pulse Ox 98.9 F 73 16 167/72 H 95 12/17/17 07:36 12/17/17 07:36 12/17/17 07:36 12/17/17 07:36 12/17/17 07:36 Intake & Output 12/16/17 12/17/17 12/18/17 06:59 06:59 06:59 Intake Total 780 860 Output Total 2500 650 Balance -1720 210 Weight 88 kg 84.3 kg GENERAL: This is a well-developed well-nourished overweight white female sitting up in bed finishing breakfast currently in no acute distress. HEART: [Regular rate and rhythm. No murmurs, rubs or gallops.] LUNGS: [Clear to auscultation bilaterally with equal rise and fall of the chest. ] ABDOMEN: [Soft, nontender, nondistended with normoactive bowel sounds] EXTREMETIES: [No clubbing, cyanosis or edema. 2+ peripheral pulses bilaterally. ] NEURO: [Awake, alert. Cranial nerves II through XII are grossly intact with the exception of cranial nerve on the right side.] Results Laboratory Results: 12/17/17 04:25 12/17/17 04:25 12/17/17 12/17/17 04:25 04:25 WBC 9.4 RBC 3.07 L Hgb 10.2 L Hct 29.5 L MCV 96 MCH 33.1 MCHC 34.5 RDW 13.2 Plt Count 186 Sodium 132.3 L Potassium 3.3 L Chloride 96 L Carbon Dioxide 25 Anion Gap 11 BUN 29 H Creatinine 1.49 H Est GFR ( Amer) 41 L Est GFR (Non-Af Amer) 34 L Glucose 115 H Calcium 9.1 Magnesium 1.7 12/09/17 12/10/17 12/10/17 23:11 04:50 10:52 Creatine Kinase CK-MB (CK-2) Troponin I 2.570 1.850 1.450 12/11/17 12/11/17 12/12/17 20:00 20:00 02:05 Creatine Kinase 108 71 CK-MB (CK-2) 4.94 H Troponin I 0.737 12/12/17 12/12/17 12/12/17 02:05 08:22 08:22 Creatine Kinase 60 CK-MB (CK-2) 4.05 3.78 Troponin I 0.641 0.551 12/13/17 12/13/17 12/14/17 21:40 21:40 04:57 Creatine Kinase 45 43 CK-MB (CK-2) 3.44 Troponin I 0.305 12/14/17 12/14/17 12/14/17 04:57 14:01 14:01 Creatine Kinase 49 CK-MB (CK-2) 3.11 2.89 Troponin I 0.279 0.292 Impressions: Chest X-Ray 12/09/17 16:35 IMPRESSION: CARDIAC ENLARGEMENT. VASCULAR CONGESTION. Transfer Plan - Disposition Transfer Plan: Transferred to [facility] - Time Spent with Patient Time spent with patient: Less than 30 Minutes Qualifiers PATEINT BEING DISCHARGED WITH ANY OF THE FOLLOWING DIAGNOSIS?: Heart Failure, TN TN Pt being discharged on Aspirin therapy?: Yes TN Pt being discharged on Statins?: Yes TN Pt discharged ACEI/ARBS?: No Reason(s) for not prescribing ACEI/ARBS:: Medical Contraindication HF Pt discharged on evidence-based Beta Neema:: Yes Plan Time Spent: Less than 30 Minutes
[2017-12-17] MEDS ORDERED: POTASSI CL 20 MEQ/50 ML RIDER 20 MEQ/50 ML RTUPB IV ONE (13:00)
== END 2017-12-17 15:37 | DRG 280 ==
LOC: ER 15:57 → EH 20:00 → 3N 12-10 23:46
PROVIDERS: ADMIT Pediatrics; ATTEND Pediatrics
DX: I21.4 Non-ST elevation (NSTEMI) myocardial infarction (principal); G93.41 Metabolic encephalopathy; I50.33 Acute on chronic diastolic (congestive) heart failure; N39.0 Urinary tract infection, site not specified; I13.0 Hypertensive heart and chronic kidney disease with heart failure and stage 1 through stage 4 chronic kidney disease, or unspecified chronic kidney disease; N17.9 Acute kidney failure, unspecified; M33.20 Polymyositis, organ involvement unspecified; E86.0 Dehydration; E11.22 Type 2 diabetes mellitus with diabetic chronic kidney disease; N18.3 Chronic kidney disease, stage 3 (moderate); D63.1 Anemia in chronic kidney disease; D69.6 Thrombocytopenia, unspecified; E78.00 Pure hypercholesterolemia, unspecified; E87.6 Hypokalemia; B96.5 Pseudomonas (aeruginosa) (mallei) (pseudomallei) as the cause of diseases classified elsewhere; B96.20 Unspecified Escherichia coli [E. coli] as the cause of diseases classified elsewhere; K59.00 Constipation, unspecified; K21.9 Gastro-esophageal reflux disease without esophagitis; R13.10 Dysphagia, unspecified; E66.01 Morbid (severe) obesity due to excess calories; M06.9 Rheumatoid arthritis, unspecified; Z87.891 Personal history of nicotine dependence; Z79.4 Long term (current) use of insulin; Z79.899 Other long term (current) drug therapy; Z68.31 Body mass index [BMI] 31.0-31.9, adult
CPT/HCPCS: 36415; 71045; 80048; 80053; 80061; 80307; 81001; 82140; 82550; 82553; 82803; 82962; 83036; 83605; 83735; 83880; 84439; 84443; 84484; 85025; 85027; 85610; 87040; 87086; 87088; 87186; 93005; 93010; 93306; 94640; 94660; 96365; 99291; G8996-GN; G8997-GN; G8998-GN; J0360; J1170; J1650; J1720; J1815; J1940; J2405; J2543; J2920; J3370; J3480; J3490; J7030; J7060; S0164

== ENCOUNTER → 2017-12-20 | Outpatient (CLI) | payer MEDICARE, MEDICAID ==
[2017-12-20 15:25] LABS: ANION GAP 11 (5-19); BLOOD UREA NITROGEN 29 mg/dL (7-20); CALCIUM 8.9 mg/dL (8.4-10.2); CARBON DIOXIDE 22 mmol/L (22-30); CHLORIDE 95 mmol/L (98-107); GLUCOSE 124 mg/dL (75-110); POTASSIUM 4.4 mmol/L (3.6-5.0); SODIUM 127.6 mmol/L (137-145)
== END ==
LOC: CRS 15:11
PROVIDERS: ATTEND Family Medicine
DX: E11.22 Type 2 diabetes mellitus with diabetic chronic kidney disease (principal); I12.9 Hypertensive chronic kidney disease with stage 1 through stage 4 chronic kidney disease, or unspecified chronic kidney disease; N18.9 Chronic kidney disease, unspecified; N17.9 Acute kidney failure, unspecified
CPT/HCPCS: 80048

== ENCOUNTER 2018-03-08 10:56 | Emergency (ER) | payer MEDICARE, MEDICAID ==
[2018-03-08] MEDS ORDERED: FAMOTIDINE INJ/PF 20 MG/2 ML SDV IV ONE (11:29)
[2018-03-08] MEDS ORDERED: METHYLPREDNISOLONE INJ 125 MG/2 ML SDV IV ONE (11:29)
--- NOTE | 2018-03-08 11:29 | ER Document Report ---
ED General - General Chief Complaint: Allergic Reaction Stated Complaint: POSSIBLE ALLERGIC REACTION Time Seen by Provider: 03/08/18 11:13 Mode of Arrival: Medic Information source: Patient Notes: 77-year-old female presents with complaints of allergic reaction of 1 day duration. Patient notes it started after eating sweet and sour sauce with her [place] food. Notes that she has had a rash all throughout denies any difficulty breathing swallowing TRAVEL OUTSIDE OF THE [place] IN LAST 30 DAYS: No - HPI Onset: Yesterday Onset/Duration: Sudden Quality of pain: No pain Severity: Mild Pain Level: Denies Associated symptoms: Other Exacerbated by: Food Relieved by: Denies Similar symptoms previously: No Recently seen / treated by doctor: No - Related Data Allergies/Adverse Reactions: HERIBERTO Inhibitors [Heriberto Inhibitors] Allergy (Verified 08/29/16 13:41) Past Medical History - Social History Smoking Status: Never Smoker Cigarette use (# per day): No Chew tobacco use (# tins/day): No Smoking Education Provided: No Frequency of alcohol use: None Drug Abuse: None Family History: Hypertension Patient has suicidal ideation: No Patient has homicidal ideation: No - Past Medical History Cardiac Medical History: Reports: Hx Hypercholesterolemia, Hx Hypertension Neurological Medical History: Denies: Hx Cerebrovascular Accident Endocrine Medical History: Reports: Hx Diabetes Mellitus Type 2 Renal/ Medical History: Reports: Hx Renal Insufficiency. Denies: Hx Peritoneal Dialysis GI Medical History: Reports: Hx Gastroesophageal Reflux Disease Musculoskeltal Medical History: Reports Hx Arthritis - Rheumatoid arthritis Psychiatric Medical History: Reports: Hx Depression Past Surgical History: Reports: Hx Genitourinary Surgery - bladder tack, Hx Hysterectomy, Hx Orthopedic Surgery - left ankle and foot - Immunizations Hx Diphtheria, Pertussis, Tetanus Vaccination: No Hx Pneumococcal Vaccination: 10/31/15 Review of Systems - Review of Systems Notes: REVIEW OF SYSTEMS: CONSTITUTIONAL : Denies fever, chills, or sweats. Denies recent illness. EENT: Denies eye, ear, throat, or mouth pain or symptoms. Denies nasal or sinus congestion or discharge. Denies throat, tongue, or mouth swelling or difficulty swallowing. CARDIOVASCULAR: Denies chest pain. Denies palpitations or racing or irregular heart beat. Denies ankle edema. RESPIRATORY: Denies cough, cold, or chest congestion. Denies shortness of breath, difficulty breathing, or wheezing. GASTROINTESTINAL: Denies abdominal pain or distention. Denies nausea, vomiting , or diarrhea. Denies blood in vomitus, stools, or per rectum. Denies black, tarry stools. Denies constipation. GENITOURINARY: Denies difficulty urinating, painful urination, burning, frequency, blood in urine, or discharge. FEMALE GENITOURINARY: Denies vaginal bleeding, heavy or abnormal periods, irregular periods. Denies vaginal discharge or odor. MUSCULOSKELETAL: Denies back or neck pain or stiffness. Denies joint pain or swelling. SKIN: Admits to rash HEMATOLOGIC : Denies easy bruising or bleeding. LYMPHATIC: Denies swollen, enlarged glands. NEUROLOGICAL: Denies confusion or altered mental status. Denies passing out or loss of consciousness. Denies dizziness or lightheadedness. Denies headache. Denies weakness or paralysis or loss of use of either side. Denies problems with gait or speech. Denies sensory loss, numbness, or tingling. Denies seizures. PSYCHIATRIC: Denies anxiety or stress. Denies depression, suicidal ideation, or homicidal ideation. ALL OTHER SYSTEMS REVIEWED AND NEGATIVE. PHYSICAL EXAMINATION: GENERAL: Well-appearing, well-nourished and in no acute distress. HEAD: Atraumatic, normocephalic. EYES: Pupils equal round and reactive to light, extraocular movements intact, conjunctiva are normal. ENT: Nares patent, oropharynx clear without exudates. Moist mucous membranes. NECK: Normal range of motion, supple without lymphadenopathy LUNGS: Breath sounds clear to auscultation bilaterally and equal. No wheezes rales or rhonchi. Airways patent HEART: Regular rate and rhythm without murmurs ABDOMEN: Soft, nontender, nondistended abdomen. No guarding, no rebound. No masses appreciated. Female : deferred Musculoskeletal: Normal range of motion, no pitting or edema. No cyanosis. NEUROLOGICAL: Cranial nerves grossly intact. Normal speech, normal gait. Normal sensory, motor exams PSYCH: Normal mood, normal affect. SKIN: Generalized urticarial rash noted all throughout the body Dictation was performed using [employer] recognition software Physical Exam - Vital signs Vitals: Temp Pulse Resp BP Pulse Ox 97.9 F 63 16 143/72 H 93 03/08/18 11:56 03/08/18 11:56 03/08/18 11:56 03/08/18 11:56 03/08/18 11:56 Course - Re-evaluation Re-evalutation: 03/08/18 15:50 Patient's presentation is most consistent with an acute allergic reaction secondary to food, she was given Benadryl by EMS provided Pepcid and Solu- Medrol in the emergency department she has no respiratory concerns this appears to be skin limied. Patient overall has a patent airway will be discharged home with further medications, EpiPen provided After performing a Medical Screening Examination, I estimate there is LOW risk for AIRWAY COMPROMISE, ANAPHYLAXIS, CELLULITIS, EPIGLOTTIS, or NECROTIZING FASCIITIS, thus I consider the discharge disposition reasonable. Also, there is no evidence or peritonitis, sepsis, or toxicity. I have reevaluated this patient multiple times and no significant life threatening changes are noted. The patient and I have discussed the diagnosis and risks, and we agree with discharging home with close follow-up with the understanding that symptoms and presentations can change. We also discussed returning to the Emergency Department immediately if new or worsening symptoms occur. We have discussed the symptoms which are most concerning (e.g., difficulty breathing or swallowing , fever, changing or worsening pain) that necessitate immediate return. - Vital Signs Vital signs: Temp Pulse Resp BP Pulse Ox 97.9 F 63 16 143/72 H 93 03/08/18 11:56 03/08/18 11:56 03/08/18 11:56 03/08/18 11:56 03/08/18 11:56 Discharge - Discharge Clinical Impression: Dermatitis due to allergic reaction to food Condition: Stable Disposition: HOME, SELF-CARE Instructions: Acute Allergic Reaction ([facility]) Additional Instructions: Follow up with your physician tomorrow for further care or return to the ED IMMEDIATELY if symptoms worsen or new concerns occur. If you cannot afford to follow up with your primary care physician a list of low cost clinics have been provided at the end of your discharge papers as well. Prescriptions: Diphenhydramine HCl [Benadryl 50 mg Capsule] 1 cap PO Q6 PRN #20 capsule PRN Reason: Epinephrine [Epipen] 0.3 mg IM ASDIR PRN #1 auto.injct PRN Reason: Famotidine [Pepcid 40 mg Tablet] 40 mg PO DAILY #5 tablet Prednisone [Deltasone 20 mg Tablet] 3 tab PO DAILY 5 Days tablet Referrals: KATY POSADAS MD [Primary Care Provider] - Follow up as needed
[2018-03-08 11:58] VITALS: BP 143/72
== END 2018-03-08 12:06 | disposition home or self-care (01) ==
LOC: ER 10:56
DX: L27.2 Dermatitis due to ingested food (principal); I10 Essential (primary) hypertension; E11.9 Type 2 diabetes mellitus without complications; Z88.8 Allergy status to other drugs, medicaments and biological substances
CPT/HCPCS: 99284; 96374; 96375; J2930; S0028

== ENCOUNTER 2018-03-10 10:07 | Emergency (ER) | payer MEDICARE, MEDICAID ==
[2018-03-10 10:20] VITALS: BP 193/96
[2018-03-10] MEDS ORDERED: DIPHENHYDRAMINE HCL 25 MG CAPSULE PO ONE (10:42)
[2018-03-10] MEDS ORDERED: FAMOTIDINE 20 MG TABLET PO ONE (10:42)
--- NOTE | 2018-03-10 10:48 | ER Document Report ---
ED General - General Chief Complaint: Skin Problem Stated Complaint: POSSIBLE ALLERGIC REACTION Time Seen by Provider: 03/10/18 10:42 Notes: 77-year-old female here with daughter who states that the patient was seen here 2 days ago for urticaria and given steroids Benadryl and Pepcid and had resolution of the symptoms but then started back up again today. She wonders if the medication has worn off however patient is still taking the prescribed Benadryl Pepcid and prednisone daily. She complains mostly of itching to the area of the rash located in the upper and mid chest, upper back. She denies any other symptoms. She initially thought the rash may have come after eating some egg rolls from a [employer] restaurant however daughter states that she is currently on an antibiotic for some sores on her right leg and wonders if the antibiotic could be causing these symptoms since the daughter also has a similar rash develop when she takes certain antibiotics. TRAVEL OUTSIDE OF THE [place] IN LAST 30 DAYS: No - Related Data Allergies/Adverse Reactions: HERIBERTO Inhibitors [Heriberto Inhibitors] Allergy (Verified 08/29/16 13:41) sulfamethoxazole [From Bactrim] Allergy (Verified 03/10/18 10:38) trimethoprim [From Bactrim] Allergy (Verified 03/10/18 10:38) Past Medical History - Social History Smoking Status: Unknown if Ever Smoked Frequency of alcohol use: None Drug Abuse: None Family History: Hypertension Patient has suicidal ideation: No Patient has homicidal ideation: No - Past Medical History Cardiac Medical History: Reports: Hx Hypercholesterolemia, Hx Hypertension Neurological Medical History: Denies: Hx Cerebrovascular Accident Endocrine Medical History: Reports: Hx Diabetes Mellitus Type 2 Renal/ Medical History: Reports: Hx Renal Insufficiency. Denies: Hx Peritoneal Dialysis GI Medical History: Reports: Hx Gastroesophageal Reflux Disease Musculoskeltal Medical History: Reports Hx Arthritis - Rheumatoid arthritis Psychiatric Medical History: Reports: Hx Depression Past Surgical History: Reports: Hx Genitourinary Surgery - bladder tack, Hx Hysterectomy, Hx Orthopedic Surgery - left ankle and foot - Immunizations Hx Diphtheria, Pertussis, Tetanus Vaccination: No Hx Pneumococcal Vaccination: 10/31/15 Review of Systems - Review of Systems Notes: See history of present illness for pertinent positive review of systems; otherwise all review of systems have been reviewed and are negative Physical Exam - Vital signs Vitals: Temp Pulse Resp BP Pulse Ox 98.5 F 55 L 20 193/96 H 96 03/10/18 10:19 03/10/18 10:19 03/10/18 10:19 03/10/18 10:19 03/10/18 10:19 - Notes Notes: PHYSICAL EXAMINATION: GENERAL: Well-appearing and in no acute distress. HEAD: Atraumatic, normocephalic. EYES: Pupils equal round and reactive to light, extraocular movements intact, sclera anicteric, conjunctiva are normal. ENT: nares patent, oropharynx clear without exudates. Moist mucous membranes. NECK: Normal range of motion, supple without lymphadenopathy; no stridor LUNGS: CTAB and equal. No wheezes rales or rhonchi. No respiratory distress HEART: Regular rate and rhythm without murmurs TORSO: Marked kyphosis ABDOMEN: Soft, no tenderness. No facial grimacing/wincing upon palpation. No guarding, no rebound. EXTREMITIES: Normal range of motion, no pitting edema. No cyanosis. NEUROLOGICAL: Alert and pleasantly conversational PSYCH: Normal mood, normal affect. SKIN: Warm, Dry, normal turgor, there is a mild urticarial rash seen on the upper back and upper/mid chest with patient attempting to scratch the area; there is some mild erythema of the right anterior ramos skin with a few very superficial ulcerations Course - Re-evaluation Re-evalutation: 03/10/18 10:55 MEDICAL DECISION MAKING: Concern for medication side effect (antibiotic) Will give her a dose of Benadryl/Pepcid here as it has been 5 hours since last dose at [facility] Discussed with patient and daughter to continue the medications prescribed at previous ED visit Discussed with patient and daughter may be a good idea to stop her antibiotic as this may be reaction Patient and daughter understand and agree to the plan of care - Vital Signs Vital signs: Temp Pulse Resp BP Pulse Ox 98.5 F 55 L 20 193/96 H 96 03/10/18 10:19 03/10/18 10:19 03/10/18 10:19 03/10/18 10:19 03/10/18 10:19 Discharge - Discharge Clinical Impression: Hives Condition: Good Disposition: [facility] Additional Instructions: You were seen in the emergency department at [facility]. Discontinue the antibiotic you are currently taking as this may be causing your rash. Continue using the medications were prescribed. In addition, you may use Benadryl cream alternating it with hydrocortisone cream. You may also apply cold compresses to the areas of the rash as this will help to numb the skin and improve itching. If you were given any sedating medications, be sure not to operate heavy machinery (example - driving) and be sure you are not too sedated to walk appropriately. Please followup with your primary physician in the next few days for further management/evaluation. Please return to the emergency department for worsening of symptoms or any symptom that you deem to be concerning or life-threatening. Thank you for allowing us to be part of your care.
== END 2018-03-10 10:57 ==
LOC: ER 10:07
DX: L50.9 Urticaria, unspecified (principal); E78.00 Pure hypercholesterolemia, unspecified; I10 Essential (primary) hypertension; E11.9 Type 2 diabetes mellitus without complications; Z88.3 Allergy status to other anti-infective agents; Z90.710 Acquired absence of both cervix and uterus
CPT/HCPCS: 99283; A9270 ×2

== ENCOUNTER → 2018-11-19 | Outpatient (CLI) | payer MEDICARE, MEDICAID ==
--- NOTE | 2018-11-19 16:47 | XCELERA REPORT ---
[address] [address] Lower Extremity Venous Evaluation Procedure: A bilateral duplex scan of the lower extremity veins was performed. The evaluation included responses to compression and other maneuvers with patient in the supine and standing positions to assess venous insufficiency. Right Sided Venous Evaluation Deep venous system evaluatiion shows patent veins with no obstruction or significant reflux identified. Sapheno Femoral junction: no reflux. Femoral vein reflux: no reflux. Greater Saphenous vein, Proximal thigh: reflux: no reflux. Greater Saphenous vein, Distal thigh: reflux: no reflux. Greater Saphenous vein, Proximal below knee: reflux: no reflux. No significant Perforators identified. Left Sided Venous Evaluation Deep venous system evaluatiion shows patent veins with no obstruction or significant reflux identified. Sapheno Femoral junction: no reflux. Femoral vein reflux: no reflux. Greater Saphenous vein, Proximal thigh: reflux: no reflux. Greater Saphenous vein, Distal thigh: reflux: no reflux. Greater Saphenous vein, Proximal below knee: reflux: no reflux. No significant Perforators identified. Interpretation Summary No duplex evidence of DVT or obstruction in the bilateral lower extremities. Negative for significant reflux in the deep or superficial veins. Name: GUY VICTORIA Age: 78 yrs Gender: Female : 1940 Patient Status: Outpatient Patient Location: Study Date: 11/19/2018 10:43 AM Reason For Study: ULCER Ordering Physician: GASTON CHAVEZ Performed By: Regan Springer : GASTON CHAVEZ > Timothy Espinal
--- NOTE | 2018-11-19 16:54 | XCELERA REPORT ---
[address] [address] Lower Extremity Arterial Evaluation Name: GUY VICTORIA Age: 78 yrs Gender: Female : 1940 Patient Status: Outpatient Patient Location: Study Date: 11/19/2018 10:12 AM Procedure: A color flow and duplex scan of the lower extremity arteries was performed bilaterally with velocity and waveform anaylsis. Reason For Study: ULCER Ordering Physician: GASTON CHAVEZ Performed By: Regan Springer Measurements and Calculations Right Left AIRPLANE DESIGNER PSV 134.5 126.4 cm/sec Prox PFA PSV -121.5 -95.9 cm/sec Prox SFA PSV 154.8 140.4 cm/sec Mid SFA PSV -87.4 -132.0cm/sec Dist SFA PSV -75.1 -173.7cm/sec Prox Pop A PSV 82.1 113.8 cm/sec Prox HARVEY PSV 75.8 75.8 cm/sec Dist HARVEY PSV 72.5 -61.6 cm/sec Prox PASTRYCOOK PSV 59.4 cm/sec Dist PASTRYCOOK PSV 14.9 68.4 cm/sec Boby Pedis PSV 125.0 77.6 cm/sec Right Side Arterial Evaluation Normal velocity and triphasic waveforms noted from the Common Femoral artery to the Anterior Tibial artery, . Biphasic with low normal velocity in the Posterior Tibial artery. Background noise makes reading the Posterior Tibial suboptimal. Ankle Brachial index not obtained due to ulcer. Left Side Arterial Evaluation Normal velocity and triphasic waveforms noted from the Common Femoral artery to the Posterior Tibial artery, . Biphasic with normal velocity, retrograde flow in the Anterior Tibial artery. Ankle Brachial index not obtained due to ulcer. Interpretation Summary Mild hemodynamically significant lesions in the bilateral lower extremities, on duplex imaging, at rest. Compromise in arterial flow is distal and compensated through at least one infrageniculate artery. : GASTON CHAVEZ > Timothy Espinal
== END ==
LOC: SP 09:38
PROVIDERS: ATTEND Nurse Practitioner
DX: L97.212 Non-pressure chronic ulcer of right calf with fat layer exposed (principal)
CPT/HCPCS: 93925; 93970

== ENCOUNTER 2018-12-25 17:15 | Emergency (ER) | payer MEDICARE, MEDICAID ==
[2018-12-25] MEDS ORDERED: NORMAL SALINE 1000 ML 1,000 ML IV ONE (17:29)
[2018-12-25] MEDS ORDERED: ACETAMINOPHEN 325 MG TABLET PO ONE (17:29)
[2018-12-25] MEDS ORDERED: ALBUTEROL SULFATE 0.083% NEB 2.5 MG/3 ML AMPUL NEB ONE (17:49)
[2018-12-25] MEDS ORDERED: KETOROLAC TROMETHAMINE INJ/PF 30 MG/1 ML SDV IV ONE (17:52)
[2018-12-25 18:01] LABS: ABSOLUTE EOSINOPHILS # (AUTO) 0.1 10^3/uL (0.0-0.6); ABSOLUTE LYMPHOCYTES (AUTO) 1.5 10^3/uL (0.5-4.7); ABSOLUTE MONOCYTES (AUTO) 0.8 10^3/uL (0.1-1.4); ABSOLUTE NEUT (AUTO) 4.7 10^3/uL (1.7-8.2); BASOPHILS % (AUTO) 0.4 % (0-2); HEMATOCRIT 30.6 % (36.0-47.0); HEMOGLOBIN 10.3 g/dL (12.0-15.5); LYMPHOCYTES % (AUTO) 21.2 % (13-45); MEAN CORPUSCULAR HEMOGLOBIN 30.8 pg (27.0-33.4); MEAN CORPUSCULAR HGB CONC 33.7 g/dL (32.0-36.0); MEAN CORPUSCULAR VOLUME 92 fl (80-97); MONOCYTES % (AUTO) 10.7 % (3-13); PLATELET COUNT 167 10^3/uL (150-450); RED BLOOD COUNT 3.34 10^6/uL (3.72-5.28); RED CELL DISTRIBUTION WIDTH 14.6 % (11.5-14.0); SEGMENTED NEUTROPHILS % (AUTO) 66.7 % (42-78); TOTAL CELLS COUNTED % (AUTO) 100 %; WHITE BLOOD COUNT 7.1 10^3/uL (4.0-10.5)
--- NOTE | 2018-12-25 18:14 | ER Document Report ---
ED General - General Stated Complaint: JOINT PAIN Time Seen by Provider: 12/25/18 17:29 Primary Care Provider: ELIZABETH VIEYRA MD [ACTIVE STAFF] - Follow up as needed KATY POSADAS MD [Primary Care Provider] - Follow up as needed TRAVEL OUTSIDE OF THE [place] IN LAST 30 DAYS: No - HPI Notes: Patient is a 78-year-old female that presents to the emergency department for chief complaint of right wrist pain and fever. Patient states she started having severe pain in her right wrist that radiates up into her right elbow today. She does have a history of gout and states she has had gout in her left wrist before. She denied knowing about having a fever. She is from a [facility] facility and was reportedly given Tylenol for fever of 101 at 430 today. patient was ordered blood work at the nursing facility but requested to come to the emergency room for evaluation. She denies any nausea, vomiting, chest pain, shortness of breath, cough/congestion, chest pain and dysuria. She did get tramadol by EMS prior to arrival which did give her some pain relief. Her pain is sharp, severe and worse with movement and palpation. Past Medical History: Gout, rheumatoid arthritis, polymyositis Past Surgical History: Reviewed in chart Social History: Denies tobacco use, denies alcohol use Family History: Reviewed and noncontributory for presenting illness Allergies: Reviewed, see documented allergy list. REVIEW OF SYSTEMS: CONSTITUTIONAL : fever No chills No diaphoresis No recent illness EENT: No vision changes No congestion No sore throat CARDIOVASCULAR: No chest pain No palpitations RESPIRATORY: No shortness of breath No cough No difficulty breathing GASTROINTESTINAL: No abdominal pain No nausea No vomiting No diarrhea GENITOURINARY: No dysuria No hematuria No difficulty urinating MUSCULOSKELETAL: No back pain leg pain arm pain SKIN: No rashes No lesions LYMPHATIC: No swollen, enlarged glands. NEUROLOGICAL: No lightheadedness No headache No weakness No paresthesias PSYCHIATRIC: No anxiety No depression PHYSICAL EXAMINATION: Vital signs reviewed, nursing noted reviewed. GENERAL: Well-appearing, well-nourished and in no acute distress. HEAD: Atraumatic, normocephalic. EYES: Eyes appear normal, extraocular movements intact, sclera anicteric, conjunctiva are normal. ENT: nares patent, oropharynx clear without exudates. Moist mucous membranes. NECK: Normal range of motion, supple without lymphadenopathy LUNGS: Breath sounds clear to auscultation bilaterally and equal. No wheezes rales or rhonchi. HEART: Regular rate and rhythm without murmurs ABDOMEN: Soft, nontender, normoactive bowel sounds. No rebound, guarding, or rigidity. No masses appreciated. EXTREMITIES: Left wrist edema, erythema and diffuse tenderness to palpation and with range of motion. Decreased left wrist range of motion secondary to pain. Normal left elbow and shoulder exam. Trace pretibial edema. NEUROLOGICAL: No focal neurological deficits. Moves all extremities spontaneously Motor and sensory grossly intact on exam. PSYCH: Normal mood, normal affect. SKIN: Warm, Dry, normal turgor. Superficial skin breakdown to bilateral heels with no active bleeding - Related Data Allergies/Adverse Reactions: HERIBERTO Inhibitors [Heriberto Inhibitors] Allergy (Verified 08/29/16 13:41) sulfamethoxazole [From Bactrim] Allergy (Verified 03/10/18 10:38) trimethoprim [From Bactrim] Allergy (Verified 03/10/18 10:38) Past Medical History - Social History Smoking Status: Never Smoker Family History: Hypertension - Past Medical History Cardiac Medical History: Reports: Hx Hypercholesterolemia, Hx Hypertension Neurological Medical History: Denies: Hx Cerebrovascular Accident Endocrine Medical History: Reports: Hx Diabetes Mellitus Type 2 Renal/ Medical History: Reports: Hx Renal Insufficiency. Denies: Hx Peritoneal Dialysis GI Medical History: Reports: Hx Gastroesophageal Reflux Disease Musculoskeletal Medical History: Reports Hx Arthritis - Rheumatoid arthritis Psychiatric Medical History: Reports: Hx Depression Past Surgical History: Reports: Hx Genitourinary Surgery - bladder tack, Hx Hysterectomy, Hx Orthopedic Surgery - left ankle and foot - Immunizations Hx Diphtheria, Pertussis, Tetanus Vaccination: No Hx Pneumococcal Vaccination: 10/31/15 Physical Exam - Vital signs Vitals: Resp 15 12/25/18 17:22 Course - Re-evaluation Re-evalutation: 12/25/18 18:24 Vitals reviewed. Nursing notes reviewed. Patient is febrile but nontoxic in appearance. 12/25/18 18:54 Patient's blood work shows elevated ESR and CRP. She has no leukocytosis. She does have some baseline elevation of renal function. Patient is febrile with no other Sirs criteria. I discussed her wrist with Dr. Vieyra who will come to the emergency room and perform joint aspiration to further evaluate for septic arthritis. Chest x-ray and urinalysis negative for infection. The remainder of her blood work is unremarkable. X-ray shows Postoperative changes to the right wrist with no osteomyelitis. Laboratory 12/25/18 12/25/18 12/25/18 17:30 17:30 17:30 WBC 7.1 RBC 3.34 L Hgb 10.3 L Hct 30.6 L MCV 92 MCH 30.8 MCHC 33.7 RDW 14.6 H Plt Count 167 Seg Neutrophils % 66.7 Lymphocytes % 21.2 Monocytes % 10.7 Eosinophils % 1.0 Basophils % 0.4 Absolute Neutrophils 4.7 Absolute Lymphocytes 1.5 Absolute Monocytes 0.8 Absolute Eosinophils 0.1 Absolute Basophils 0.0 ESR PT Cancelled INR Cancelled Sodium 137.0 Potassium 4.9 Chloride 101 Carbon Dioxide 29 Anion Gap 7 BUN 34 H Creatinine 1.64 H Est GFR ( Amer) 37 L Est GFR (Non-Af Amer) 30 L Glucose 116 H Lactic Acid Calcium 9.1 Total Bilirubin 0.8 Direct Bilirubin 0.2 Neonat Total Bilirubin Not Reportable Neonat Direct Bilirubin Not Reportable Neonat Indirect Bili Not Reportable AST 28 ALT 15 Alkaline Phosphatase 64 C-Reactive Protein 82.2 H Total Protein 5.9 L Albumin 3.3 L 12/25/18 12/25/18 17:30 17:30 WBC RBC Hgb Hct MCV MCH MCHC RDW Plt Count Seg Neutrophils % Lymphocytes % Monocytes % Eosinophils % Basophils % Absolute Neutrophils Absolute Lymphocytes Absolute Monocytes Absolute Eosinophils Absolute Basophils ESR 61 H PT INR Sodium Potassium Chloride Carbon Dioxide Anion Gap BUN Creatinine Est GFR ( Amer) Est GFR (Non-Af Amer) Glucose Lactic Acid 0.6 L Calcium Total Bilirubin Direct Bilirubin Neonat Total Bilirubin Neonat Direct Bilirubin Neonat Indirect Bili AST ALT Alkaline Phosphatase C-Reactive Protein Total Protein Albumin Chest X-Ray 12/25/18 17:40 IMPRESSION: NO ACUTE RADIOGRAPHIC FINDING IN THE CHEST. Wrist X-Ray 12/25/18 17:48 IMPRESSION: Resection of the carpal trapezium. Marked osteopenia. Chondrocalcinosis. 12/25/18 19:17 Patient reevaluated and has become more agitated. She is likely sundowning from her dementia. She is redirectable after removing monitoring. Monitor will be replaced. We will continue to monitor her while waiting for orthopedic evaluation. Care signed over to Dr. Wei pending orthopedic evaluation and final disposition. - Vital Signs Vital signs: Temp Pulse Resp BP Pulse Ox 97.8 F 67 10 L 166/75 H 100 12/26/18 03:00 12/25/18 17:40 12/26/18 03:00 12/26/18 03:00 12/26/18 03:00 - Laboratory Result Diagrams: 12/25/18 17:30 12/25/18 17:30 Laboratory results interpreted by me: 12/25/18 12/25/18 12/25/18 17:30 17:30 17:30 RBC 3.34 L Hgb 10.3 L Hct 30.6 L RDW 14.6 H ESR PT BUN 34 H Creatinine 1.64 H Est GFR ( Amer) 37 L Est GFR (Non-Af Amer) 30 L Glucose 116 H Lactic Acid 0.6 L C-Reactive Protein 82.2 H Total Protein 5.9 L Albumin 3.3 L Urine Ascorbic Acid 12/25/18 12/25/18 12/25/18 17:30 18:05 19:15 RBC Hgb Hct RDW ESR 61 H PT 15.6 H BUN Creatinine Est GFR ( Amer) Est GFR (Non-Af Amer) Glucose Lactic Acid C-Reactive Protein Total Protein Albumin Urine Ascorbic Acid 40 H Discharge - Discharge Clinical Impression: Pain and swelling of right wrist, Febrile illness, Septic arthritis Condition: Good Disposition: HOME, SELF-CARE Instructions: [facility] Additional Instructions: You have been evaluated in the Emergency Department for pain and swelling in your right wrist that is due to an infection in the joint. While here, you were evaluated by our orthopedic surgeon and had fluid drawn from your wrist. You were then given IV antibiotics after the fluid showed evidence of infection and it is now safe to be discharged home. Please follow-up with Dr. Vieyra as instructed in 24-48 hours to be reevaluated. Please take your prescribed medications as instructed. Return to the Emergency Department if you experience high fevers, worsening pain/swelling of your right wrist, or any other concerning symptoms. Prescriptions: Amox Tr/Potassium Clavulanate [Augmentin 875-125 Tablet] 1 tab PO BID 10 Days #20 tablet Ciprofloxacin HCl [Cipro 500 mg Tablet] 500 mg PO BID 10 Days #20 tablet Referrals: ELIZABETH VIEYRA MD [ACTIVE STAFF] - Follow up as needed KATY POSADAS MD [Primary Care Provider] - Follow up as needed Print Language: Romansh
[2018-12-25 18:17] LABS: ALANINE AMINOTRANSFERASE 15 U/L (9-52); ALBUMIN 3.3 g/dL (3.5-5.0); ALKALINE PHOSPHATASE 64 U/L (38-126); ANION GAP 7 (5-19); ASPARTATE AMINO TRANSFERASE 28 U/L (14-36); BILIRUBIN,DIRECT 0.2 mg/dL (0.0-0.4); BILIRUBIN,TOTAL 0.8 mg/dL (0.2-1.3); BLOOD UREA NITROGEN 34 mg/dL (7-20); C-REACTIVE PROTEIN 82.2 mg/L (<10.0); CALCIUM 9.1 mg/dL (8.4-10.2); CARBON DIOXIDE 29 mmol/L (22-30); CHLORIDE 101 mmol/L (98-107); GLUCOSE 116 mg/dL (75-110); POTASSIUM 4.9 mmol/L (3.6-5.0); TOTAL PROTEIN 5.9 g/dL (6.3-8.2)
--- NOTE | 2018-12-25 18:24 | RADIOLOGY REPORT (SQ) ---
EXAM DESCRIPTION: WRIST RIGHT 2 VIEWS COMPLETED DATE/TIME: 12/25/2018 6:05 pm REASON FOR STUDY: pain COMPARISON: None. NUMBER OF VIEWS: Two views. TECHNIQUE: AP and lateral radiographic images acquired of the right wrist. LIMITATIONS: None. FINDINGS: MINERALIZATION: Osteopenia. BONES: no acute fracture. Limited without oblique views. There appears to be surgical resection of the trapezium. Marked degenerative changes of the PIP joint of the 5th digit. SOFT TISSUES: Chondrocalcinosis. OTHER: No other significant finding. IMPRESSION: Resection of the carpal trapezium. Marked osteopenia. Chondrocalcinosis. TECHNICAL DOCUMENTATION: JOB ID: [id number] [employer]- All Rights Reserved Reading location - IP/workstation name: [email or web address]
--- NOTE | 2018-12-25 18:25 | RADIOLOGY REPORT (SQ) ---
EXAM DESCRIPTION: CHEST SINGLE VIEW COMPLETED DATE/TIME: 12/25/2018 6:05 pm REASON FOR STUDY: fever COMPARISON: 06/20/2016 EXAM PARAMETERS: NUMBER OF VIEWS: One view. TECHNIQUE: Single frontal radiographic view of the chest acquired. RADIATION DOSE: NA LIMITATIONS: None. FINDINGS: LUNGS AND PLEURA: No opacities, masses or pneumothorax. No pleural effusion. MEDIASTINUM AND HILAR STRUCTURES: Chronic elevation of the right hemidiaphragm. HEART AND VASCULAR STRUCTURES: Normal size heart. Calcified mitral annulus. BONES: Severe degenerative changes of right shoulder. HARDWARE: None in the chest. OTHER: No other significant finding. IMPRESSION: NO ACUTE RADIOGRAPHIC FINDING IN THE CHEST. TECHNICAL DOCUMENTATION: JOB ID: [id number] [employer]- All Rights Reserved Reading location - IP/workstation name: [email or web address]
[2018-12-25 19:06] LABS: APPEARANCE,URINE CLEAR; BILIRUBIN,URINE NEGATIVE (NEGATIVE); COLOR,URINE YELLOW; GLUCOSE, URINE NEGATIVE (NEGATIVE); KETONES,URINE NEGATIVE (NEGATIVE); LEUKOCYTE ESTERASE,URINE NEGATIVE (NEGATIVE); NITRITE,URINE NEGATIVE (NEGATIVE); PROTEIN,URINE NEGATIVE (NEGATIVE); URINE SPECIFIC GRAVITY 1.011; UROBILINOGEN,URINE NEGATIVE mg/dL (<2.0)
[2018-12-25 19:32] LABS: VENOUS BLOOD BASE EXCESS -1.3 mmol/L; VENOUS BLOOD PCO2 48.1 mmHg (35-63); VENOUS BLOOD PH 7.33 (7.30-7.42)
[2018-12-25 19:40] LABS: INTERNATIONAL RATION (INR) 1.18; PROTHROMBIN TIME 15.6 SEC (11.4-15.4)
[2018-12-25] MEDS ORDERED: CEFTRIAXONE 1 GM/D5W RTU 1 GM/50 ML RTUPB IV ONE (19:42)
[2018-12-25] MEDS ORDERED: VANCOMYCIN HCL INJ 1000 MG VIAL IV ONE (19:42)
--- NOTE | 2018-12-25 19:45 | ER Document Report ---
Doctor's Note Notes: 12/25/18 19:[address] Ahumada. Orthopedic surgery has performed joint aspiration, appears purulent in nature, question septic arthritis. Patient is nontoxic-appearing, has stable vitals without tachycardia or elevated temperature, has a normal white count. I do not believe admission is necessary, and Dr. Vieyra has agreed to see the patient in follow-up. Patient will be given IV vancomycin with ceftriaxone, will send joint aspirate fluid for Gram stain/culture along with cell counts and crystal analysis. Anticipate discharge after treatment. 12/26/18 02:28 IV antibiotics are completed. Patient will be discharged home with return precautions and follow-up with orthopedic surgery as instructed. Patient voices both understanding and agreeing with the plan. Discharge - Discharge Clinical Impression: Pain and swelling of right wrist, Febrile illness Septic arthritis Qualifiers: Septic arthritis location: wrist Septic arthritis organism: due to unspecified organism Laterality: right Qualified Code(s): M00.9 - Pyogenic arthritis, unspecified Condition: Good Disposition: HOME, SELF-CARE Instructions: Arthritis ([facility]) Additional Instructions: You have been evaluated in the Emergency Department for pain and swelling in your right wrist that is due to an infection in the joint. While here, you were evaluated by our orthopedic surgeon and had fluid drawn from your wrist. You were then given IV antibiotics after the fluid showed evidence of infection and it is now safe to be discharged home. Please follow-up with Dr. Vieyra as instructed in 24-48 hours to be reevaluated. Please take your prescribed medications as instructed. Return to the Emergency Department if you experience high fevers, worsening pain/swelling of your right wrist, or any other concerning symptoms. Prescriptions: Amox Tr/Potassium Clavulanate [Augmentin 875-125 Tablet] 1 tab PO BID 10 Days #20 tablet Ciprofloxacin HCl [Cipro 500 mg Tablet] 500 mg PO BID 10 Days #20 tablet Referrals: KATY POSADAS MD [Primary Care Provider] - Follow up as needed ELIZABETH VIEYRA MD [ACTIVE STAFF] - Follow up as needed Print Language: [place]
--- NOTE | 2018-12-25 19:48 | PDOC CONSULTATION ---
Consultation Consult Date: 12/25/18 Consult reason:: The patient is a 78-year-old white female resident of [facility] with multiple medical comorbidities who presents to the emergency room with complaints of right hand and wrist pain. The patient is somewhat unreliable as a historian and the duration and magnitude of the pain is uncertain History of Present Illness Admission Date/PCP: KATY POSADAS MD History of Present Illness: GUY VICTORIA is a 78 year old female who presents with right wrist pain of unknown duration and what seems to be progression with uncertain magnitude. The patient does mention that she has had gout inflammation in the right upper extremity in the past. Past Medical History Cardiac Medical History: Reports: Hyperlipidema, Hypertension Endocrine Medical History: Reports: Diabetes Mellitus Type 2 GI Medical History: Reports: Gastroesophageal Reflux Disease Musculoskeltal Medical History: Reports: Arthritis - Rheumatoid arthritis Psychiatric Medical History: Reports: Depression Past Surgical History Past Surgical History: Reports: Hysterectomy, Orthopedic Surgery - left ankle and foot LRTI right thumb Social History Information Source: Patient, [facility] Records Lives with: Jail Smoking Status: Former Smoker Frequency of Alcohol Use: None Hx Recreational Drug Use: No Drugs: None Hx Prescription Drug Abuse: No Family History Family History: Reviewed & Not Pertinent, Hypertension Parental Family History Reviewed: No Children Family History Reviewed: No Sibling(s) Family History Reviewed.: No Medication/Allergy Home Medications: Acetaminophen [Tylenol 325 mg Tablet] 650 mg PO Q4HP PRN 12/10/17 Ascorbic Acid [Vitamin C 500 mg Tablet] 500 mg PO DAILY 12/10/17 Calcium Carbonate [Tums Chewable 500 mg Tab.chew] 1,000 mg PO Q2HP PRN 12/10/17 Cyanocobalamin (Vitamin B-12) [Vitamin B-12 Inj 1000 Mcg/1 ml Vial] 1,000 mcg INJ [id number] 12/10/17 Diphenhydramine HCl [Benadryl] 50 mg PO Q6HP PRN 12/10/17 Docusate Sodium [Colace 100 mg Capsule] 100 mg PO BID 12/10/17 Febuxostat [Uloric 40 mg Tablet] 40 mg PO DAILY 12/10/17 Fluticasone Propionate [Flonase Nasal [place] 50 Mcg/[place] 16 gm] 2 spray NASL DAILY 12/10/17 Folic Acid 1 mg PO DAILY 12/10/17 Furosemide [Lasix 20 mg Tablet] 20 mg PO MOWEFR 12/10/17 Gabapentin [Neurontin 300 mg Capsule] 300 mg PO Q8 12/10/17 Hydralazine HCl [Apresoline 50 mg Tablet] 50 mg PO TID 12/10/17 Hydrocortisone [Cortef 10 mg Tablet] 10 mg PO DAILY 12/10/17 Insulin Lispro [Humalog] 0 unit SUBCUT .SLD SCALE 12/10/17 L.acidoph,Paracasei, B.lactis [Probiotic] 1 cap PO BID 12/10/17 Lidocaine [Lidoderm 5% (700 mg) Transdermal Patch] 1 patch TOP DAILY 12/10/17 Losartan Potassium [Cozaar 50 mg Tablet] 50 mg PO DAILY 12/10/17 Magnesium Oxide [Mag-Ox 400 mg Tablet] 400 mg PO DAILY 12/10/17 Montelukast Sodium [Singulair 10 mg Tablet] 10 mg PO QHS 12/10/17 Multivitamin/Iron/Folic Acid [Centrum Complete Multivit Tab] 1 each PO DAILY 12/10/17 Crary-3 Fatty Acids/Fish Oil [Fish Oil 1,000 mg Capsule] 2 cap PO BID 12/10/17 Polyvinyl Alcohol [Liquitears] 2 drop OU QID 12/10/17 Potassium Chloride [Kaon-Cl 20 Meq/15 ml Udcup] 10 meq PO DAILY 12/10/17 Ranitidine HCl [Zantac] 300 mg PO BID 12/10/17 Ropinirole HCl [Requip] 1 mg PO BID 12/10/17 Wheat Dextrin [Benefiber] 1 packet PO BIDP PRN 12/10/17 Carvedilol [Coreg 25 mg Tablet] 1 tab PO Q12 12/11/17 Clonidine HCl [Catapres 0.2 mg Tablet] 0.2 mg PO Q12 12/11/17 Amlodipine Besylate [Norvasc 5 mg Tablet] 10 mg PO DAILY #30 tablet 12/17/17 Aspirin [Ecotrin 81 mg EC Tablet] 81 mg PO DAILY tabec 12/17/17 Atorvastatin Calcium [Lipitor 40 mg Tablet] 40 mg PO QHS #30 tablet 12/17/17 Lansoprazole [Prevacid 30 mg Odt Tablet] 30 mg PO BID@0600,1700 tab.rap. 12/17/17 Nitroglycerin [Nitro-Dur 5 mg (0.2 mg/Hr) Transdermal Patch] 1 each TD DAILY #30 patch.td24 12/17/17 Ranolazine [Ranexa 500 mg Tab.sr] 500 mg PO Q12 #60 tab.sr.12h 12/17/17 Tramadol HCl [Ultram 50 mg Tablet] 100 mg PO Q6HP PRN #14 tablet 12/17/17 Diphenhydramine HCl [Benadryl 50 mg Capsule] 1 cap PO Q6 PRN #20 capsule 03/08/18 Epinephrine [Epipen] 0.3 mg IM ASDIR PRN #1 auto.injct 03/08/18 Famotidine [Pepcid 40 mg Tablet] 40 mg PO DAILY #5 tablet 03/08/18 Prednisone [Deltasone 20 mg Tablet] 3 tab PO DAILY 5 Days tablet 03/08/18 Allergies/Adverse Reactions: HERIBERTO Inhibitors [Heriberto Inhibitors] Allergy (Verified 08/29/16 13:41) sulfamethoxazole [From Bactrim] Allergy (Verified 03/10/18 10:38) trimethoprim [From Bactrim] Allergy (Verified 03/10/18 10:38) Review of Systems ROS unobtainable: Due to mental status All systems: as per PMH Physical Exam Vital Signs: Temp Pulse Resp BP Pulse Ox 39.0 C H 67 16 115/60 97 12/25/18 17:40 12/25/18 17:40 12/25/18 17:40 12/25/18 17:40 12/25/18 17:40 Intake & Output 12/24/18 12/25/18 12/26/18 06:59 06:59 06:59 Weight 70.6 kg Physical Exam: The patient is an elderly white female on a gurney who is sitting up, conversant and alert, but only sometimes making sense. General appearance: PRESENT: no acute distress, obese, well-developed, well- nourished Head exam: PRESENT: normocephalic Respiratory exam: PRESENT: unlabored, other - Nasal prong oxygen Cardiovascular exam: PRESENT: RRR Pulses: PRESENT: normal radial pulses Vascular exam: PRESENT: normal capillary refill GI/Abdominal exam: PRESENT: soft Rectal exam: PRESENT: deferred Extremities exam: PRESENT: other - The patient is sitting up in bed complaining of right arm pain. As I palpate the arm the tenderness begins somewhere about the elbow extends into the forearm but seems the epicenter seems to be at the wrist. Passive range of motion of the wrist causes the patient discomfort. His well-healed surgical incisions from prior LRTI. There is no real skin changes. There may be some slight edema but does not true induration nor is or erythema. There is a passive range of motion of the fingers with only minor distress. Neurological exam: PRESENT: awake Skin exam: PRESENT: dry, intact, warm. ABSENT: cyanosis, rash Additional comments: Radiographs are reviewed and demonstrate the previous LR TI and what appears to be a relatively normal-appearing radiocarpal joint. There is a cystic lesion in the ulnar styloid that appears to be benign. Under sterile conditions the skin is prepped over the dorsal surface of the radiocarpal joint of the right upper extremity. An 18-gauge needle was advanced and used to aspirate approximately 1-1/2 cc of what appears to be purulent fluid. This is sent for cell count, differential, crystal analysis, and culture. Results Laboratory Results: 12/25/18 17:30 12/25/18 17:30 12/25/18 12/25/18 12/25/18 17:30 17:30 17:30 WBC 7.1 RBC 3.34 L Hgb 10.3 L Hct 30.6 L MCV 92 MCH 30.8 MCHC 33.7 RDW 14.6 H Plt Count 167 Seg Neutrophils % 66.7 Lymphocytes % 21.2 Monocytes % 10.7 Eosinophils % 1.0 Basophils % 0.4 Absolute Neutrophils 4.7 Absolute Lymphocytes 1.5 Absolute Monocytes 0.8 Absolute Eosinophils 0.1 Absolute Basophils 0.0 VBG pH VBG pCO2 VBG HCO3 VBG Base Excess Sodium 137.0 Potassium 4.9 Chloride 101 Carbon Dioxide 29 Anion Gap 7 BUN 34 H Creatinine 1.64 H Est GFR ( Amer) 37 L Est GFR (Non-Af Amer) 30 L Glucose 116 H Lactic Acid 0.6 L Calcium 9.1 Total Bilirubin 0.8 AST 28 ALT 15 Alkaline Phosphatase 64 C-Reactive Protein 82.2 H Total Protein 5.9 L Albumin 3.3 L Urine Color Urine Appearance Urine pH Ur Specific [place] Urine Protein Urine Glucose (UA) Urine Ketones Urine Blood Urine Nitrite Ur Leukocyte Esterase Urine WBC (Auto) 02/27/19 02/27/19 18:05 19:15 WBC RBC Hgb Hct MCV MCH MCHC RDW Plt Count Seg Neutrophils % Lymphocytes % Monocytes % Eosinophils % Basophils % Absolute Neutrophils Absolute Lymphocytes Absolute Monocytes Absolute Eosinophils Absolute Basophils VBG pH 7.33 VBG pCO2 48.1 VBG HCO3 25.0 VBG Base Excess -1.3 Sodium Potassium Chloride Carbon Dioxide Anion Gap BUN Creatinine Est GFR ( Amer) Est GFR (Non-Af Amer) Glucose Lactic Acid Calcium Total Bilirubin AST ALT Alkaline Phosphatase C-Reactive Protein Total Protein Albumin Urine Color YELLOW Urine Appearance CLEAR Urine pH 7.0 Ur Specific [place] 1.011 Urine Protein NEGATIVE Urine Glucose (UA) NEGATIVE Urine Ketones NEGATIVE Urine Blood NEGATIVE Urine Nitrite NEGATIVE Ur Leukocyte Esterase NEGATIVE Urine WBC (Auto) 1 Impressions: Chest X-Ray 12/25/18 17:40 IMPRESSION: NO ACUTE RADIOGRAPHIC FINDING IN THE CHEST. Wrist X-Ray 12/25/18 17:48 IMPRESSION: Resection of the carpal trapezium. Marked osteopenia. Chondrocalcinosis. Status: Imported from PACS Assessment & Plan - Diagnosis (1) Pain and swelling of right wrist Is this a current diagnosis for this admission?: Yes Plan: 78-year-old white female who is febrile and complaining of right wrist pain. Right wrist aspirate demonstrates what appears to be purulent fluid. This is sent for the appropriate laboratory studies. Case is discussed with the emergency room physician who feels that discharge with oral antibiotics as an initial step is appropriate. Patient will follow-up with me in the morning in the office. - Time Time Spent: 50 to 70 Minutes Anticipated discharge: SNF Within: Other - Plan Summary Plan Summary: Follow-up follow-up with Dr. Chacon in the [facility] for surgery tomorrow morning for review of laboratory studies
[2018-12-25 20:19] LABS: A TYPE INFLUENZA AG NEGATIVE (NEGATIVE); B INFLUENZA AG NEGATIVE (NEGATIVE)
[2018-12-25 20:21] LABS: FLUID SOURCE WRIST; FLUID TYPE SYNOVIAL
[2018-12-25 20:22] LABS: FLUID VISCOSITY MODERATELY VISCOUS
[2018-12-25 20:23] LABS: FLUID APPEARANCE CLOUDY
[2018-12-25 20:24] LABS: FLUID COLOR STRAW
[2018-12-26 03:20] VITALS: BP 166/75
--- NOTE | 2018-12-26 22:12 | EKG REPORT ---
SEVERITY:- ABNORMAL ECG - SINUS RHYTHM LEFT AXIS DEVIATION LEFT VENTRICULAR HYPERTROPHY ANTERIOR Q WAVES, POSSIBLY DUE TO LVH : Confirmed by: La Nena Mejía 26-Dec-2018 22:11:12
== END 2018-12-26 03:00 | disposition home or self-care (01) ==
LOC: ER 17:15
DX: M00.9 Pyogenic arthritis, unspecified (principal); M11.231 Other chondrocalcinosis, right wrist; M85.88 Other specified disorders of bone density and structure, other site; M06.9 Rheumatoid arthritis, unspecified; R50.9 Fever, unspecified; M25.531 Pain in right wrist; M79.606 Pain in leg, unspecified; R23.8 Other skin changes; F03.90 Unspecified dementia, unspecified severity, without behavioral disturbance, psychotic disturbance, mood disturbance, and anxiety; E11.9 Type 2 diabetes mellitus without complications; K21.9 Gastro-esophageal reflux disease without esophagitis; I10 Essential (primary) hypertension; E78.5 Hyperlipidemia, unspecified; Z79.899 Other long term (current) drug therapy; Z79.4 Long term (current) use of insulin; Z88.8 Allergy status to other drugs, medicaments and biological substances; Z88.1 Allergy status to other antibiotic agents; Z79.82 Long term (current) use of aspirin
CPT/HCPCS: 93005; 36415; 87040; 87086; 87205; 87070; 85025; 85652; 85610; 89050; 87075; 86140; 87088; 80053; 81001; 87186; 82803; 83605; 87804; 71045; 73100; 93010; 20605; J1885; J7030; J3370; J0696; A9270

== ENCOUNTER 2018-12-26 15:22 | Observation (INO) | payer MEDICARE, MEDICAID ==
[2018-12-26] MEDS ORDERED: IPRATROPIUM/ALBUTEROL 0.5-2.5 MG/3 ML AMPUL NEB ONE (15:54)
--- NOTE | 2018-12-26 15:56 | ER Document Report ---
ED Medical Screen (RME) - General Chief Complaint: Wrist Pain Stated Complaint: WRIST PAIN Time Seen by Provider: 12/26/18 15:51 Primary Care Provider: KATY POSADAS MD [Primary Care Provider] - Follow up as needed Notes: 78 years old female from [place] was evaluated here in the ER yesterday was discharged subsequently. Sent over here by the primary care physician after seeing the patient in the office. Because the patient is not improved. In fact getting worse. Fever is persistent, altered mentation, difficulty in breathing and wheezing diffusely. TRAVEL OUTSIDE OF THE [place] IN LAST 30 DAYS: No - Related Data Allergies/Adverse Reactions: HERIBERTO Inhibitors [Heriberto Inhibitors] Allergy (Verified 12/26/18 15:26) sulfamethoxazole [From Bactrim] Allergy (Verified 12/26/18 15:26) trimethoprim [From Bactrim] Allergy (Verified 12/26/18 15:26) Past Medical History - Past Medical History Cardiac Medical History: Reports: Hx Hypercholesterolemia, Hx Hypertension Neurological Medical History: Denies: Hx Cerebrovascular Accident Endocrine Medical History: Reports: Hx Diabetes Mellitus Type 2 Renal/ Medical History: Reports: Hx Renal Insufficiency. Denies: Hx Peritoneal Dialysis GI Medical History: Reports: Hx Gastroesophageal Reflux Disease Musculoskeltal Medical History: Reports Hx Arthritis - Rheumatoid arthritis Psychiatric Medical History: Reports: Hx Depression Past Surgical History: Reports: Hx Genitourinary Surgery - bladder tack, Hx Hysterectomy, Hx Orthopedic Surgery - left ankle and foot - Immunizations Hx Diphtheria, Pertussis, Tetanus Vaccination: No History of Influenza Vaccine for 07/2017 - 12/2017 Season: Yes Influenza Administration Date for 07/2017 - 12/2017 Season: 07/29/17 Physical Exam - Vital signs Vitals: Temp Pulse Resp BP Pulse Ox 99.6 F 76 20 157/67 H 94 12/26/18 15:30 12/26/18 15:30 12/26/18 15:30 12/26/18 15:30 12/26/18 15:30 Course - Vital Signs Vital signs: Temp Pulse Resp BP Pulse Ox 99.6 F 76 20 157/67 H 94 12/26/18 15:30 12/26/18 15:30 12/26/18 15:30 12/26/18 15:30 12/26/18 15:30 Doctor's Discharge - Discharge Referrals: KATY POSADAS MD [Primary Care Provider] - Follow up as needed
--- NOTE | 2018-12-26 16:33 | RADIOLOGY REPORT (SQ) ---
EXAM DESCRIPTION: CHEST SINGLE VIEW COMPLETED DATE/TIME: 12/26/2018 4:17 pm REASON FOR STUDY: Shortness of breath COMPARISON: None. EXAM PARAMETERS: NUMBER OF VIEWS: One view. TECHNIQUE: Single frontal radiographic view of the chest acquired. RADIATION DOSE: NA LIMITATIONS: Limited exam secondary to patient positioning. FINDINGS: LUNGS AND PLEURA: Low lung volumes. Chronic interstitial changes without evidence of new focal airspace disease. Possible trace bilateral pleural effusions. No appreciable pneumothorax. U nchanged elevation of the right hemidiaphragm. MEDIASTINUM AND HILAR STRUCTURES: No masses. Contour normal. HEART AND VASCULAR STRUCTURES: Normal heart size. Mitral annulus calcifications likely. BONES: Extensive degenerative changes at the shoulders bilaterally. No acute bony abnormality. HARDWARE: None in the chest. OTHER: No other significant finding. IMPRESSION: Possible trace bilateral effusions versus pleural thickening. No additional evidence of acute cardiopulmonary process. TECHNICAL DOCUMENTATION: JOB ID: [id number] [employer]- All Rights Reserved Reading location - IP/workstation name: [email or web address]
[2018-12-26 16:53] LABS: ABSOLUTE BASOPHILS # (AUTO) 0.1 10^3/uL (0.0-0.2); ABSOLUTE EOSINOPHILS # (AUTO) 0.1 10^3/uL (0.0-0.6); ABSOLUTE LYMPHOCYTES (AUTO) 1.1 10^3/uL (0.5-4.7); ABSOLUTE MONOCYTES (AUTO) 0.5 10^3/uL (0.1-1.4); ABSOLUTE NEUT (AUTO) 5.2 10^3/uL (1.7-8.2); BASOPHILS % (AUTO) 0.9 % (0-2); EOSINOPHILS % (AUTO) 1.3 % (0-6); HEMATOCRIT 30.8 % (36.0-47.0); HEMOGLOBIN 10.3 g/dL (12.0-15.5); LYMPHOCYTES % (AUTO) 16.1 % (13-45); MEAN CORPUSCULAR HEMOGLOBIN 30.5 pg (27.0-33.4); MEAN CORPUSCULAR HGB CONC 33.4 g/dL (32.0-36.0); MEAN CORPUSCULAR VOLUME 91 fl (80-97); MONOCYTES % (AUTO) 7.1 % (3-13); PLATELET COUNT 173 10^3/uL (150-450); RED BLOOD COUNT 3.38 10^6/uL (3.72-5.28); RED CELL DISTRIBUTION WIDTH 14.6 % (11.5-14.0); SEGMENTED NEUTROPHILS % (AUTO) 74.6 % (42-78); TOTAL CELLS COUNTED % (AUTO) 100 %
[2018-12-26] MEDS: ALBUTEROL SULFATE 0.083% NEB 2.5 MG/3 ML AMPUL NEB SCH ×2 (17:00→17:19)
[2018-12-26 17:04] LABS: ALANINE AMINOTRANSFERASE 26 U/L (9-52); ALBUMIN 3.5 g/dL (3.5-5.0); ALKALINE PHOSPHATASE 72 U/L (38-126); ANION GAP 10 (5-19); ASPARTATE AMINO TRANSFERASE 51 U/L (14-36); BILIRUBIN,DIRECT 0.3 mg/dL (0.0-0.4); BILIRUBIN,TOTAL 0.6 mg/dL (0.2-1.3); BLOOD UREA NITROGEN 38 mg/dL (7-20); CALCIUM 9.2 mg/dL (8.4-10.2); CARBON DIOXIDE 25 mmol/L (22-30); CHLORIDE 101 mmol/L (98-107); GLUCOSE 103 mg/dL (75-110); POTASSIUM 5.2 mmol/L (3.6-5.0); SODIUM 135.9 mmol/L (137-145); TOTAL PROTEIN 6.3 g/dL (6.3-8.2)
[2018-12-26] MEDS ORDERED: RINGERS SOLUTION,LACTATED 1,000 ML IV ONE (18:20)
[2018-12-26] MEDS ORDERED: CEFTRIAXONE INJ 1000 MG VIAL IV ONE (18:20)
[2018-12-26] MEDS ORDERED: VANCOMYCIN HCL INJ 1000 MG VIAL IV ONE (18:20)
--- NOTE | 2018-12-26 19:45 | ER Document Report ---
ED General - General Chief Complaint: Wrist Pain Stated Complaint: WRIST PAIN Time Seen by Provider: 12/26/18 15:51 Primary Care Provider: KATY POSADAS MD [Primary Care Provider] - Follow up as needed Notes: Patient is a 78-year-old female who presents with ongoing pain to the right wrist with associated fever. Symptoms started gradually and have gotten progressively worse since onset. Was seen in the emergency room yesterday for the same, followed up in clinic today with Dr. Chacon, referred back to the em ergency department due to ongoing fever. Patient describes pain to her right wrist as being a constant, aching, throbbing pain. Nothing improves the pain, but moving the joint worsens the pain. States that she has a history of gout in the past but is never had a septic joint. Denies any known trauma to the area. Notes that she has had a mild cough but denies any other symptoms beyond right wrist pain. TRAVEL OUTSIDE OF THE [place] IN LAST 30 DAYS: No - Related Data Allergies/Adverse Reactions: HERIBERTO Inhibitors [Heriberto Inhibitors] Allergy (Verified 12/26/18 15:26) sulfamethoxazole [From Bactrim] Allergy (Verified 12/26/18 15:26) trimethoprim [From Bactrim] Allergy (Verified 12/26/18 15:26) Past Medical History - General Information source: Patient - Social History Smoking Status: Never Smoker Chew tobacco use (# tins/day): No Frequency of alcohol use: None Drug Abuse: None Lives with: Group Home Family History: Hypertension Patient has suicidal ideation: No Patient has homicidal ideation: No - Past Medical History Cardiac Medical History: Reports: Hx Hypercholesterolemia, Hx Hypertension Neurological Medical History: Denies: Hx Cerebrovascular Accident Endocrine Medical History: Reports: Hx Diabetes Mellitus Type 2 Renal/ Medical History: Reports: Hx Renal Insufficiency. Denies: Hx Peritoneal Dialysis GI Medical History: Reports: Hx Gastroesophageal Reflux Disease Musculoskeletal Medical History: Reports Hx Arthritis - Rheumatoid arthritis Psychiatric Medical History: Reports: Hx Depression Past Surgical History: Reports: Hx Genitourinary Surgery - bladder tack, Hx Hysterectomy, Hx Orthopedic Surgery - left ankle and foot - Immunizations Hx Diphtheria, Pertussis, Tetanus Vaccination: No Hx Pneumococcal Vaccination: 10/31/15 Review of Systems - Review of Systems Notes: Constitutional: Positive for fever. HENT: Negative for sore throat. Eyes: Negative for visual changes. Cardiovascular: Negative for chest pain. Respiratory: Negative for shortness of breath. Positive for wheezing Gastrointestinal: Negative for abdominal pain, vomiting or diarrhea. Genitourinary: Negative for dysuria. Musculoskeletal: Positive for right wrist pain Skin: Positive for rash Neurological: Negative for headaches, weakness or numbness. 10 point ROS negative except as marked above and in HPI. Physical Exam - Vital signs Vitals: Temp Pulse Resp BP Pulse Ox 99.6 F 76 20 157/67 H 94 12/26/18 15:30 12/26/18 15:30 12/26/18 15:30 12/26/18 15:30 12/26/18 15:30 Interpretation: Hypertensive Notes: PHYSICAL EXAMINATION: GENERAL: Somewhat frail but in no acute distress HEAD: Atraumatic, normocephalic. EYES: Pupils equal round and reactive to light, extraocular movements intact, sclera anicteric, conjunctiva are normal. ENT: nares patent, oropharynx clear without exudates. Moderately dry mucous membranes. NECK: Normal range of motion, supple without lymphadenopathy LUNGS: Breath sounds clear to auscultation bilaterally and equal. No wheezes rales or rhonchi. HEART: Regular rate and rhythm without murmurs ABDOMEN: Soft, nontender, normoactive bowel sounds. No guarding, no rebound. No masses appreciated. EXTREMITIES: Diffusely erythematous and swollen right wrist and hand. Patient unwilling to perform range of motion secondary to pain. NEUROLOGICAL: No focal neurological deficits. Moves all extremities spontaneousl y and on command. PSYCH: Normal mood, normal affect. SKIN: Warm, Dry, normal turgor, no rashes or lesions noted. Course - Re-evaluation Re-evalutation: 12/26/18 19:41 Patient presents with findings most worrisome for septic joint of the right wrist. Febrile in office as well as in the emergency room yesterday with an elevated CRP and ESR. Significant elevated white blood cell count and synovial aspirate although the Gram stain was noted to be negative and there is no growth yet from the aspirate. Considerations for alternative sources of her fever seems less probable. Flu test negative, urinalysis from yesterday is clear. Chest x-ray x2 without evidence of an acute pneumonia. Patient denies any other acute symptoms other than pain to the right wrist. Exam is otherwise unremarkable. I did discuss with Dr. Chacon who has accepted the patient for hospitalization. The patient has been started on vancomycin and ceftriaxone. - Vital Signs Vital signs: Temp Pulse Resp BP Pulse Ox 99.6 F 76 20 157/67 H 94 12/26/18 15:30 12/26/18 15:30 12/26/18 15:30 12/26/18 15:30 12/26/18 15:30 - Laboratory Result Diagrams: 12/26/18 16:37 12/26/18 16:37 Laboratory results interpreted by me: 12/26/18 12/26/18 16:37 16:37 RBC 3.38 L Hgb 10.3 L Hct 30.8 L RDW 14.6 H Sodium 135.9 L Potassium 5.2 H BUN 38 H Creatinine 1.72 H Est GFR ( Amer) 35 L Est GFR (Non-Af Amer) 29 L AST 51 H Discharge - Discharge Clinical Impression: CKD (chronic kidney disease) stage 3, GFR 30-59 ml/min Septic arthritis of right wrist Qualifiers: Septic arthritis organism: due to unspecified organism Qualified Code(s): M00.9 - Pyogenic arthritis, unspecified Sepsis Qualifiers: Sepsis type: sepsis due to unspecified organism Qualified Code(s): A41.9 - Sepsis, unspecified organism Condition: Fair Disposition: ADMITTED INPATIENT Admitting Provider: Ines Unit Admitted: Surgical Floor Referrals: KATY POSADAS MD [Primary Care Provider] - Follow up as needed
[2018-12-27] MEDS: RINGERS SOLUTION,LACTATED 1,000 ML IV PRN ×3 (01:07→13:10)
[2018-12-27 06:27] LABS: ABSOLUTE EOSINOPHILS # (AUTO) 0.2 10^3/uL (0.0-0.6); ABSOLUTE LYMPHOCYTES (AUTO) 1.2 10^3/uL (0.5-4.7); ABSOLUTE MONOCYTES (AUTO) 0.5 10^3/uL (0.1-1.4); ABSOLUTE NEUT (AUTO) 3.1 10^3/uL (1.7-8.2); BASOPHILS % (AUTO) 0.6 % (0-2); EOSINOPHILS % (AUTO) 3.8 % (0-6); HEMATOCRIT 26.2 % (36.0-47.0); LYMPHOCYTES % (AUTO) 24.4 % (13-45); MEAN CORPUSCULAR HGB CONC 34.3 g/dL (32.0-36.0); MEAN CORPUSCULAR VOLUME 90 fl (80-97); PLATELET COUNT 139 10^3/uL (150-450); RED BLOOD COUNT 2.91 10^6/uL (3.72-5.28); RED CELL DISTRIBUTION WIDTH 14.3 % (11.5-14.0); SEGMENTED NEUTROPHILS % (AUTO) 62.2 % (42-78); TOTAL CELLS COUNTED % (AUTO) 100 %
[2018-12-27 06:39] LABS: PROTHROMBIN TIME 15.8 SEC (11.4-15.4)
[2018-12-27 06:40] LABS: PARTIAL THROMBOPLASTIN TIME 36.5 SEC (23.5-35.8)
[2018-12-27 06:47] LABS: ANION GAP 8 (5-19); BLOOD UREA NITROGEN 34 mg/dL (7-20); CALCIUM 8.8 mg/dL (8.4-10.2); CARBON DIOXIDE 25 mmol/L (22-30); CHLORIDE 102 mmol/L (98-107); GLUCOSE 100 mg/dL (75-110); SODIUM 135.1 mmol/L (137-145)
[2018-12-27 07:08] LABS: POTASSIUM 4.2 mmol/L (3.6-5.0)
--- NOTE | 2018-12-27 08:06 | PDOC H&P ---
History of Present Illness Admission Date/PCP: 12/26/18 20:14 KATY POSADAS MD Patient complains of: Right wrist pain History of Present Illness: GUY VICTORIA is a 78 year old female who began having right wrist pain a few weeks ago. However over the past week her pain notably increased with increased swelling. She was seen at the emergency room on 12/25/18 with the above complaints. She was seen by Dr. Chacon where aspiration was done demonstrating questionable purulent fluid thus concern for septic arthritis. Was started on p.o. antibiotics. Since that time she states the pain has improved but still has discomfort with motion. Does note history of gout. Past Medical History Cardiac Medical History: Reports: Hyperlipidema, Hypertension Endocrine Medical History: Reports: Diabetes Mellitus Type 2 GI Medical History: Reports: Gastroesophageal Reflux Disease Musculoskeltal Medical History: Reports: Arthritis - Rheumatoid arthritis Psychiatric Medical History: Reports: Depression Past Surgical History Past Surgical History: Reports: Hysterectomy, Orthopedic Surgery - left ankle and foot Social History Lives with: [facility] Smoking Status: Former Smoker Number of Years Smokin Frequency of Alcohol Use: None Hx Recreational Drug Use: No Drugs: None Hx Prescription Drug Abuse: No Family History Family History: Hypertension Parental Family History Reviewed: No Children Family History Reviewed: No Sibling(s) Family History Reviewed.: No Medication/Allergy Allergies/Adverse Reactions: HERIBERTO Inhibitors [Heriberto Inhibitors] Allergy (Verified 12/26/18 15:26) sulfamethoxazole [From Bactrim] Allergy (Verified 12/26/18 15:26) trimethoprim [From Bactrim] Allergy (Verified 12/26/18 15:26) Review of Systems Constitutional: PRESENT: fatigue, fever(s). ABSENT: chills, headache(s), weight gain, weight loss Eyes: ABSENT: visual disturbances Ears: ABSENT: hearing changes Cardiovascular: ABSENT: chest pain, dyspnea on exertion, edema, orthropnea, palpitations Respiratory: ABSENT: cough, hemoptysis Gastrointestinal: ABSENT: abdominal pain, constipation, diarrhea, hematemesis, hematochezia, nausea, vomiting Genitourinary: ABSENT: dysuria, hematuria Musculoskeletal: PRESENT: as per HPI Integumentary: ABSENT: rash, wounds Neurological: ABSENT: abnormal gait, abnormal speech, confusion, dizziness, focal weakness, syncope Psychiatric: ABSENT: anxiety, depression, homidical ideation, suicidal ideation Endocrine: ABSENT: cold intolerance, heat intolerance, menstrual abnormalities, polydipsia, polyuria Hematologic/Lymphatic: ABSENT: easy bleeding, easy bruising, lymphadenopathy Physical Exam Vital Signs: Temp Pulse Resp BP Pulse Ox 99.1 F 62 15 156/52 H 93 12/26/18 22:21 12/26/18 22:21 12/26/18 22:21 12/26/18 22:21 12/26/18 22:21 Intake & Output 12/26/18 12/27/18 12/28/18 06:59 06:59 06:59 Intake Total 1740 Output Total 700 Balance 1040 Weight 71.8 kg General appearance: PRESENT: no acute distress, well-developed, well-nourished Head exam: PRESENT: atraumatic, normocephalic Eye exam: ABSENT: scleral icterus Ear exam: PRESENT: normal external ear exam Mouth exam: PRESENT: moist, tongue midline Neck exam: PRESENT: full ROM. ABSENT: carotid bruit, JVD, lymphadenopathy, thyromegaly Cardiovascular exam: PRESENT: RRR. ABSENT: diastolic murmur, rubs, systolic murmur Pulses: PRESENT: normal dorsalis pedis pul, +2 pedal pulses bilateral Vascular exam: PRESENT: normal capillary refill GI/Abdominal exam: PRESENT: normal bowel sounds, soft. ABSENT: distended, guarding, mass, organolmegaly, rebound, tenderness Rectal exam: PRESENT: deferred Musculoskeletal exam: PRESENT: other - Right wrist: Notable effusion. Tenderness to palpation. Mild erythema. Increased warmth compared to noninvolved left wrist. Pain with flexion/extension. Notable deformity of the IP joints with evidence of arthrosis. No sensory deficits. Neurological exam: PRESENT: alert, awake, oriented to person, oriented to place, oriented to time, oriented to situation, CN II-XII grossly intact. ABSENT: motor sensory deficit Psychiatric exam: PRESENT: appropriate affect, normal mood. ABSENT: homicidal ideation, suicidal ideation Skin exam: PRESENT: dry, intact, warm. ABSENT: cyanosis, rash Results Laboratory Results: 12/27/18 05:55 12/27/18 05:55 12/26/18 12/26/18 12/27/18 16:37 16:37 05:55 WBC 7.0 5.0 RBC 3.38 L 2.91 L Hgb 10.3 L 9.0 L Hct 30.8 L 26.2 L MCV 91 90 MCH 30.5 31.0 MCHC 33.4 34.3 RDW 14.6 H 14.3 H Plt Count 173 139 L Seg Neutrophils % 74.6 62.2 Lymphocytes % 16.1 24.4 Monocytes % 7.1 9.0 Eosinophils % 1.3 3.8 Basophils % 0.9 0.6 Absolute Neutrophils 5.2 3.1 Absolute Lymphocytes 1.1 1.2 Absolute Monocytes 0.5 0.5 Absolute Eosinophils 0.1 0.2 Absolute Basophils 0.1 0.0 Sodium 135.9 L Potassium 5.2 H Chloride 101 Carbon Dioxide 25 Anion Gap 10 BUN 38 H Creatinine 1.72 H Est GFR ( Amer) 35 L Est GFR (Non-Af Amer) 29 L Glucose 103 Calcium 9.2 Total Bilirubin 0.6 AST 51 H ALT 26 Alkaline Phosphatase 72 Total Protein 6.3 Albumin 3.5 12/27/18 05:55 WBC RBC Hgb Hct MCV MCH MCHC RDW Plt Count Seg Neutrophils % Lymphocytes % Monocytes % Eosinophils % Basophils % Absolute Neutrophils Absolute Lymphocytes Absolute Monocytes Absolute Eosinophils Absolute Basophils Sodium 135.1 L Potassium 4.2 D Chloride 102 Carbon Dioxide 25 Anion Gap 8 BUN 34 H Creatinine 1.51 H Est GFR ( Amer) 40 L Est GFR (Non-Af Amer) 33 L Glucose 100 Calcium 8.8 Total Bilirubin AST ALT Alkaline Phosphatase Total Protein Albumin Impressions: Chest X-Ray 12/26/18 15:54 IMPRESSION: Possible trace bilateral effusions versus pleural thickening. No additional evidence of acute cardiopulmonary process. Assessment & Plan - Diagnosis (1) Septic arthritis of right wrist Qualifiers: Septic arthritis organism: due to unspecified organism Qualified Code(s): M00.9 - Pyogenic arthritis, unspecified Is this a current diagnosis for this admission?: Yes Plan: Given the purulent aspirate there is concerns of possible septic arthritis of the right wrist however gout does remain within the differential. Given the concerns of septic arthritis this and worsening of patient's condition including development of bacteremia I discussed the case with the patient patient's daughter and felt operative intervention is warranted in this current case which includes arthroscopic irrigation and debridement right wrist. Risks and benefits were explained to the patient and daughter who verbalized understanding consented for the procedure.
[2018-12-27] MEDS ORDERED: NITROGLYCERIN 0.4 MG/TAB 25 TAB/BOTTLE SL PRN (10:23)
[2018-12-27] MEDS ORDERED: (PENDING PHARMACY ID) (Sennosides [Senna] 17.2 MG) PO PRN (10:23)
[2018-12-27] MEDS ORDERED: GUAR GUM PO PRN (10:23)
[2018-12-27] MEDS ORDERED: DIPHENHYDRAMINE HCL 50 MG CAPSULE PO PRN (10:23)
[2018-12-27] MEDS ORDERED: HYDROCORTISONE TOP PRN (10:30)
[2018-12-27] MEDS ORDERED: (PENDING PHARMACY ID) (Lactobacillus Acidophilus [Acidophilus] 1 EACH) PO SCH (10:30)
[2018-12-27] MEDS ORDERED: POLYETHYLENE GLYCOL 3350 POWDER 17 GM/1 PACKET PO PRN (10:35)
[2018-12-27] MEDS: TRAMADOL HCL 50 MG TABLET PO PRN (11:34)
[2018-12-27] MEDS: LOSARTAN POTASSIUM 50 MG TABLET PO SCH (11:35)
[2018-12-27] MEDS: MAGNESIUM OXIDE 400 MG TABLET PO SCH (11:35)
[2018-12-27] MEDS: MULTIVITAMIN TABLET PO SCH (11:35)
[2018-12-27] MEDS: CLONIDINE HCL 0.2 MG TABLET PO SCH ×2 (11:41→21:41)
[2018-12-27] MEDS: HYDRALAZINE HCL 50 MG TABLET PO SCH ×3 (11:41→21:40)
[2018-12-27] MEDS: FUROSEMIDE 20 MG TABLET PO SCH (11:41)
[2018-12-27] MEDS: CARVEDILOL 12.5 MG TABLET PO SCH ×2 (11:42→21:41)
[2018-12-27] MEDS: GABAPENTIN 400 MG CAPSULE PO SCH ×3 (11:42→21:41)
[2018-12-27] MEDS: DOCUSATE SODIUM 100 MG CAPSULE PO SCH ×2 (12:01→21:30)
[2018-12-27] MEDS: FOLIC ACID 1 MG TABLET PO SCH (12:01)
[2018-12-27] MEDS: ROPINIROLE HCL 1 MG TABLET PO SCH ×2 (13:13→21:41)
[2018-12-27] MEDS: HYDROCORTISONE 10 MG TABLET PO SCH (13:13)
[2018-12-27] MEDS: FEBUXOSTAT 40 MG TABLET PO SCH (13:13)
[2018-12-27] MEDS: POLYVINYL ALCOHOL 1.4% OPH SOLN 15 ML OU SCH ×3 (13:14→21:42)
[2018-12-27] MEDS: FLUTICASONE NASAL SPRAY 50 MCG/SPRY 120 SPRAY/16 GM NASL SCH ×2 (13:14→21:42)
[2018-12-27] MEDS: TRIAMCINOLONE ACETONIDE 0.1% CREAM 15 GM TOP SCH ×2 (13:16→21:30)
[2018-12-27] MEDS: MUPIROCIN 2% OINTMENT 22 GM TP SCH (13:16)
[2018-12-27] MEDS ORDERED: AMOXICILLIN TR/POT CLAVULANATE 500-125 MG TAB PO SCH (14:00)
[2018-12-27] MEDS: CIPROFLOXACIN HCL 500 MG TABLET PO SCH (14:09)
[2018-12-27] MEDS: FAMOTIDINE 20 MG TABLET PO SCH (16:44)
[2018-12-27] MEDS ORDERED: (PENDING PHARMACY ID) (Ranitidine Hcl [Zantac 150 Mg Tablet] 300 MG) PO SCH (17:00)
[2018-12-27] MEDS ORDERED: PROPOFOL INJ 200 MG/20 ML VIAL IV ONE ×2 (17:59→18:08)
[2018-12-27] MEDS ORDERED: FENTANYL CITRATE INJ/PF 100 MCG/2 ML AMPUL ONE ×2 (17:59→18:07)
[2018-12-27] MEDS ORDERED: ONDANSETRON HCL INJ/PF 4 MG/2 ML SDV ONE (17:59)
[2018-12-27] MEDS ORDERED: MIDAZOLAM 2 MG/2 ML INJ ONE ×2 (17:59→18:08)
[2018-12-27] MEDS ORDERED: DEXAMETHASONE SOD PHOSPHATE INJ 4 MG/1 ML VIAL ONE (17:59)
[2018-12-27] MEDS ORDERED: LIDOCAINE 1%/EPINEPHRINE INJ 20 ML VIAL ONE (18:09)
[2018-12-27] MEDS ORDERED: LIDOCAINE 1% INJ-PF (10 MG/ML) 30 ML SDV ONE (18:48)
[2018-12-27] MEDS ORDERED: MEPERIDINE HCL/PF INJ 25 MG/1 ML DISP.SYRIN IV PRN (18:54)
[2018-12-27] MEDS ORDERED: MORPHINE SULFATE 10 MG/ML INJ IV PRN (18:54)
[2018-12-27] MEDS ORDERED: PROMETHAZINE HCL INJ 25 MG/1 ML VIAL IV PRN ×2 (18:54)
[2018-12-27] MEDS ORDERED: DIPHENHYDRAMINE HCL 50 MG/ML VIAL IV PRN (18:54)
[2018-12-27] MEDS ORDERED: FENTANYL CITRATE INJ/PF 100 MCG/2 ML AMPUL IV PRN ×3 (18:54)
[2018-12-27] MEDS ORDERED: VANCOMYCIN HCL INJ 1000 MG VIAL ONE (19:05)
--- NOTE | 2018-12-27 19:26 | Operative Report ---
Operative Report DATE OF SURGERY: 12/27/18 PREOPERATIVE DIAGNOSIS: Septic arthritis right wrist POSTOPERATIVE DIAGNOSIS: Same plus radial sided TFCC tear OPERATION: Arthroscopic irrigation and debridement right wrist, debridement radial sided TFCC tear with partial synovectomy SURGEON: [place]AND LUCERO ANESTHESIA: LMAC COMPLICATIONS: None ESTIMATED BLOOD LOSS: Minimal PROCEDURE: Indication for above procedure: 78-year-old female with redness swelling and pain in her right wrist. Patient was seen in the emergency room and in our office where aspiration was done demonstrating purulent material but cultures have remained negative. But given patient's repeated fevers and persistent discomfort decision was made to proceed with operative intervention. Risks and benefits were explained to the patient and daughter who is POA they verbalized understanding and consented for procedure. Procedure In Detail: Patient was seen and evaluated in the preoperative holding area. The RIGHT upper extremity was initialized and marked. Patient received 1 g of IV vancomycin for bacterial prophylaxis after cultures were obtained. Patient was taken back to the operative room where transferred to the operative table and placed under anesthesia. Once they were adequately anesthetized a nonsterile tourniquet was placed on the upper extremity and a tourniquet block performed. 10 cc of 1% lidocaine with epinephrine was injected along the portal sites and intra-articularly. A surgical team debriefing was performed ensuring all instrumentation was available, the surgical procedure was discussed with possible concerns reviewed. The upper extremity was prepped with chlorhexidine and alcohol and draped in a sterile fashion. A timeout was done identifying correct patient, procedure and extremity everyone in attendance agree with this and verbalized no concerns. Additional 10 cc of 1% lidocaine without epinephrine was injected. A 3-4 portal was established and arthroscope introduced into the radiocarpal joint. Upon entrance into the joint there was evidence of chondrocalcinosis and cloudy appearing joint fluid, cultures were obtained.. Via triangulation a 4-5 portal established. Diagnostic arthroscopy demonstrated degenerative change on the radiocarpal joint with chondral loss, synovitis. Along the ulnar aspect of the wrist was evidence of radial sided TFCC tear with fraying. Arthroscopic shaver was inserted into the joint and partial synovectomy was performed. Also debridement of the radial sided TFCC tear performed as well. A total of 1.5 L of saline was irrigated throughout the joint. Skin incisions were closed with interrupted 4-0 nylon suture. Wound was dressed Xeroform 4 x 4's and a soft bandage. Tourniquet was deflated. Patient had good peripheral effusion. Sponge counts, instrument counts, needle counts were correct. Patient was then awoken from anesthesia. Transferred from the operating room table to the operating room stretcher. There was no intraoperative complications patient tolerated procedure well stable to PACU. Posterior plan: Patient will continue on IV antibiotics for the next 48 hours if patient shows clinical improvement discharged home on p.o. antibiotics.
[2018-12-27] MEDS: LACTOBACILLUS ACIDOPHILUS 250 MG TAB PO SCH (21:30)
[2018-12-27] MEDS: MONTELUKAST SODIUM 10 MG TABLET PO SCH (21:41)
[2018-12-27] MEDS: CEFTRIAXONE 1 GM/D5W RTU 1 GM/50 ML RTUPB IV SCH (21:42)
[2018-12-27] MEDS ORDERED: (PENDING PHARMACY ID) (Amox Tr/Potassium Clavulanate [Augmentin 875-125 Mg Tablet] 1 TAB) PO SCH (22:00)
[2018-12-27] MEDS ORDERED: HYDROCORTISONE 1% CREAM 28.35 GM TP SCH ×2 (22:00)
[2018-12-28] MEDS: VANCOMYCIN HCL 750 MG in DEXTROSE 5%-WATER 250 ML IV SCH ×2 (00:19→23:12)
[2018-12-28] MEDS: HYDRALAZINE HCL 50 MG TABLET PO SCH ×3 (05:22→21:33)
[2018-12-28] MEDS: GABAPENTIN 400 MG CAPSULE PO SCH ×3 (05:22→21:33)
--- NOTE | 2018-12-28 07:47 | PDOC PROGRESS REPORT ---
Subjective Progress Note for:: 12/28/18 Reason For Visit: SEPTIC ARTHRITIS OF RIGHT WRIST,SEPSIS,CKD STAGE 3 78-year-old white female now postop day 1 status post I&D of her right wrist presumed septic arthritis. All cultures have remained no growth so far. Patient considerably improved this morning from both a pain standpoint as well as an overall wellness. She remains afebrile since the surgery. Physical Exam Vital Signs: Temp Pulse Resp BP Pulse Ox 36.6 C 61 17 165/61 H 97 12/27/18 23:45 12/27/18 23:45 12/27/18 23:45 12/28/18 05:30 12/27/18 23:45 Intake & Output 12/27/18 12/28/18 12/29/18 06:59 06:59 06:59 Intake Total 1740 2700 Output Total 700 1300 Balance 1040 1400 Weight 71.8 kg 72.1 kg Physical Exam: Obese elderly white female sitting up in a hospital bed. She is in no apparent distress. Right upper extremity is dressed in a compressive dressing. General appearance: PRESENT: no acute distress Head exam: PRESENT: normocephalic Respiratory exam: PRESENT: unlabored Cardiovascular exam: PRESENT: RRR Vascular exam: PRESENT: normal capillary refill GI/Abdominal exam: PRESENT: soft Rectal exam: PRESENT: deferred Extremities exam: PRESENT: other - Right upper extremity in a compressive dressing. Brisk capillary refill in each of the digits. Sensory examination is intact to light touch. There is considerably improved passive range of motion of the right wrist with less discomfort. Neurological exam: PRESENT: alert, awake, oriented to person, oriented to place, oriented to time, oriented to situation Skin exam: PRESENT: dry, intact, warm. ABSENT: cyanosis, rash Results Laboratory Results: 12/27/18 05:55 12/27/18 05:55 Impressions: Chest X-Ray 12/26/18 15:54 IMPRESSION: Possible trace bilateral effusions versus pleural thickening. No additional evidence of acute cardiopulmonary process. Status: Imported from PACS Assessment & Plan - Diagnosis (1) Septic arthritis of right wrist Qualifiers: Septic arthritis organism: due to unspecified organism Qualified Code(s): M00.9 - Pyogenic arthritis, unspecified Is this a current diagnosis for this admission?: Yes Plan: Considerable medical improvement since yesterday. Overall cultures remain no growth so far the patient remains on empiric antibiotic therapy. Plan for continued antibiotic therapy today and reassessment tomorrow regarding discharge to a halfway facility. - Time Time Spent with patient: 15-24 minutes Anticipated discharge: SNF Within: within 24 hours
[2018-12-28] MEDS: FUROSEMIDE 20 MG TABLET PO SCH (08:31)
[2018-12-28] MEDS: TRAMADOL HCL 50 MG TABLET PO PRN (08:32)
[2018-12-28] MEDS ORDERED: CEFTRIAXONE INJ 1000 MG VIAL IV SCH (10:00)
[2018-12-28] MEDS ORDERED: VANCOMYCIN HCL INJ 1000 MG VIAL IV SCH (10:00)
[2018-12-28] MEDS: MUPIROCIN 2% OINTMENT 22 GM TP SCH (10:22)
[2018-12-28] MEDS: TRIAMCINOLONE ACETONIDE 0.1% CREAM 15 GM TOP SCH ×2 (10:22→17:26)
[2018-12-28] MEDS: ROPINIROLE HCL 1 MG TABLET PO SCH ×2 (10:23→21:41)
[2018-12-28] MEDS: FLUTICASONE NASAL SPRAY 50 MCG/SPRY 120 SPRAY/16 GM NASL SCH ×2 (10:24→21:33)
[2018-12-28] MEDS: HYDROCORTISONE 10 MG TABLET PO SCH (10:24)
[2018-12-28] MEDS: POLYVINYL ALCOHOL 1.4% OPH SOLN 15 ML OU SCH ×4 (10:24→21:32)
[2018-12-28] MEDS: FEBUXOSTAT 40 MG TABLET PO SCH (10:24)
[2018-12-28] MEDS: DOCUSATE SODIUM 100 MG CAPSULE PO SCH ×2 (10:24→17:35)
[2018-12-28] MEDS: FOLIC ACID 1 MG TABLET PO SCH (10:25)
[2018-12-28] MEDS: MULTIVITAMIN TABLET PO SCH (10:27)
[2018-12-28] MEDS: CLONIDINE HCL 0.2 MG TABLET PO SCH ×2 (10:27→21:33)
[2018-12-28] MEDS: LACTOBACILLUS ACIDOPHILUS 250 MG TAB PO SCH ×2 (10:27→17:35)
[2018-12-28] MEDS: LOSARTAN POTASSIUM 50 MG TABLET PO SCH (10:27)
[2018-12-28] MEDS: ASCORBIC ACID 500 MG TABLET PO SCH (10:27)
[2018-12-28] MEDS: CARVEDILOL 12.5 MG TABLET PO SCH ×2 (10:27→21:33)
[2018-12-28] MEDS: MAGNESIUM OXIDE 400 MG TABLET PO SCH (10:27)
[2018-12-28] MEDS: CIPROFLOXACIN HCL 500 MG TABLET PO SCH (11:46)
[2018-12-28] MEDS: FAMOTIDINE 20 MG TABLET PO SCH (17:35)
[2018-12-28] MEDS: CEFTRIAXONE 1 GM/D5W RTU 1 GM/50 ML RTUPB IV SCH (21:32)
[2018-12-28] MEDS: MONTELUKAST SODIUM 10 MG TABLET PO SCH (21:33)
[2018-12-29] MEDS: GABAPENTIN 400 MG CAPSULE PO SCH ×3 (05:49→22:04)
[2018-12-29] MEDS: HYDRALAZINE HCL 50 MG TABLET PO SCH ×3 (05:49→22:05)
--- NOTE | 2018-12-29 07:17 | PDOC PROGRESS REPORT ---
Subjective Progress Note for:: 12/29/18 Reason For Visit: SEPTIC ARTHRITIS OF RIGHT WRIST,SEPSIS,CKD STAGE 3 78-year-old white female now postop day 2 status post arthroscopic irrigation and debridement of the right radiocarpal joint. Cultures remain no growth so far. Physical Exam Vital Signs: Temp Pulse Resp BP Pulse Ox 36.7 C 51 L 17 147/62 H 99 12/28/18 23:27 12/28/18 23:27 12/28/18 23:27 12/28/18 23:27 12/28/18 23:27 Intake & Output 12/28/18 12/29/18 12/30/18 06:59 06:59 06:59 Intake Total 2700 2119 Output Total 1300 Balance 1400 2119 Weight 72.1 kg 67.4 kg Physical Exam: Elderly white female sitting up in bed. She is alert, oriented, and appropriate. General appearance: PRESENT: no acute distress, obese Head exam: PRESENT: normocephalic Respiratory exam: PRESENT: unlabored Cardiovascular exam: PRESENT: RRR Vascular exam: PRESENT: normal capillary refill Extremities exam: PRESENT: other - Right wrist dressing taken down. Portals well approximated with nylon and are dry without erythema. Results Laboratory Results: 12/27/18 05:55 12/27/18 05:55 Impressions: Chest X-Ray 12/26/18 15:54 IMPRESSION: Possible trace bilateral effusions versus pleural thickening. No additional evidence of acute cardiopulmonary process. Status: Imported from PACS Assessment & Plan - Diagnosis (1) Septic arthritis of right wrist Qualifiers: Septic arthritis organism: due to unspecified organism Qualified Code(s): M00.9 - Pyogenic arthritis, unspecified Is this a current diagnosis for this admission?: Yes Plan: We will continue with empiric antibiotics for now on a course of observation. Have requested social work help for transfer to a [facility] facility tomorrow. - Time Time Spent with patient: 15-24 minutes Anticipated discharge: SNF Within: within 24 hours
[2018-12-29] MEDS: FUROSEMIDE 20 MG TABLET PO SCH (08:06)
[2018-12-29] MEDS: TRIAMCINOLONE ACETONIDE 0.1% CREAM 15 GM TOP SCH ×2 (10:18→17:56)
[2018-12-29] MEDS: LACTOBACILLUS ACIDOPHILUS 250 MG TAB PO SCH ×2 (10:19→17:51)
[2018-12-29] MEDS: CLONIDINE HCL 0.2 MG TABLET PO SCH ×2 (10:19→22:05)
[2018-12-29] MEDS: ASCORBIC ACID 500 MG TABLET PO SCH (10:21)
[2018-12-29] MEDS: CARVEDILOL 12.5 MG TABLET PO SCH ×3 (10:21→22:12)
[2018-12-29] MEDS: MULTIVITAMIN TABLET PO SCH (10:21)
[2018-12-29] MEDS: ROPINIROLE HCL 1 MG TABLET PO SCH ×2 (10:21→22:06)
[2018-12-29] MEDS: DOCUSATE SODIUM 100 MG CAPSULE PO SCH ×2 (10:21→17:51)
[2018-12-29] MEDS: LOSARTAN POTASSIUM 50 MG TABLET PO SCH (10:21)
[2018-12-29] MEDS: FOLIC ACID 1 MG TABLET PO SCH (10:21)
[2018-12-29] MEDS: MAGNESIUM OXIDE 400 MG TABLET PO SCH (10:21)
[2018-12-29] MEDS: FLUTICASONE NASAL SPRAY 50 MCG/SPRY 120 SPRAY/16 GM NASL SCH ×2 (10:22→22:07)
[2018-12-29] MEDS: POLYVINYL ALCOHOL 1.4% OPH SOLN 15 ML OU SCH ×4 (10:22→22:07)
[2018-12-29] MEDS: FEBUXOSTAT 40 MG TABLET PO SCH (10:22)
[2018-12-29] MEDS: HYDROCORTISONE 10 MG TABLET PO SCH (10:22)
[2018-12-29] MEDS: MUPIROCIN 2% OINTMENT 22 GM TP SCH (10:23)
[2018-12-29] MEDS: TRAMADOL HCL 50 MG TABLET PO PRN (13:03)
[2018-12-29] MEDS: FAMOTIDINE 20 MG TABLET PO SCH (16:54)
[2018-12-29] MEDS ORDERED: HYDROCODONE/ACETAMINOPHEN 5-325 MG TABLET PO PRN (17:14)
[2018-12-29] MEDS: CEFTRIAXONE 1 GM/D5W RTU 1 GM/50 ML RTUPB IV SCH (21:59)
[2018-12-29] MEDS: MONTELUKAST SODIUM 10 MG TABLET PO SCH (22:06)
[2018-12-29] MEDS: VANCOMYCIN HCL 750 MG in DEXTROSE 5%-WATER 250 ML IV SCH (22:47)
[2018-12-30] MEDS: HYDRALAZINE HCL 50 MG TABLET PO SCH ×2 (05:58→13:34)
[2018-12-30] MEDS: GABAPENTIN 400 MG CAPSULE PO SCH ×2 (05:58→13:35)
--- NOTE | 2018-12-30 07:02 | PDOC DISCHARGE SUMMARY ---
General - Admit/Disc Date/PCP Admission Date/Primary Care Provider: 12/26/18 20:14 KATY POSADAS MD Discharge Date: 12/30/18 - Discharge Diagnosis (1) Septic arthritis of right wrist Is this a current diagnosis for this admission?: Yes - Additional Information Home Medications: Amox Tr/Potassium Clavulanate [Augmentin 875-125 mg Tablet] 1 tab PO Q12 12/27/18 Ascorbic Acid [Vitamin C 500 mg Tablet] 500 mg PO DAILY 12/27/18 Carvedilol [Coreg 12.5 mg Tablet] 25 mg PO Q12 12/27/18 Ceftriaxone Sodium [Rocephin Inj 2000 mg Vial] 1,000 mg IM DAILY 12/27/18 Ciprofloxacin HCl [Cipro 500 mg Tablet] 500 mg PO BID 12/27/18 Clonidine HCl [Catapres 0.2 mg Tablet] 0.2 mg PO Q12 12/27/18 Cyanocobalamin (Vitamin B-12) [Vitamin B-12 Inj 1000 Mcg/1 ml Vial] 1,000 mcg IM .8TH 12/27/18 Diphenhydramine HCl [Benadryl 50 mg Capsule] 50 mg PO Q6HP PRN 12/27/18 Docusate Sodium [Colace 100 mg Capsule] 100 mg PO BID 12/27/18 Febuxostat [Uloric 40 mg Tablet] 40 mg PO DAILY 12/27/18 Fluticasone Propionate [Flonase Nasal [place] 50 Mcg/[place] 16 gm] 2 sprays NASL Q12 12/27/18 Folic Acid [Folvite 1 mg Tablet] 1 mg PO DAILY 12/27/18 Furosemide [Lasix 20 mg Tablet] 20 mg PO QAM 12/27/18 Gabapentin [Neurontin 400 mg Capsule] 400 mg PO Q8 12/27/18 Guar Gum [Benefiber] 1 each PO DAILYP PRN 12/27/18 Hydralazine HCl [Apresoline 50 mg Tablet] 50 mg PO Q8 12/27/18 Hydrocortisone [Cortef 10 Mg Tablet] 10 mg PO DAILY 12/27/18 Hydrocortisone [Hydrocortisone 2.5% Cream 28 gm (Clinic Use)] 1 applic TOP DAILYP PRN 12/27/18 Hydrocortisone/Oatmeal/Aloe/E [Hydrocortisone 1% Cream] 28.4 gm TP Q12 12/27/18 Lactobacillus Acidophilus [Acidophilus] 1 each PO BID 12/27/18 Losartan Potassium [Cozaar 50 mg Tablet] 50 mg PO DAILY 12/27/18 Magnesium Oxide [Mag-Ox 400 mg Tablet] 400 mg PO DAILY 12/27/18 Montelukast Sodium [Singulair 10 mg Tablet] 10 mg PO QHS 12/27/18 Multivitamin [Tab-A-Darek (Multiple Vitamin) Tablet] 1 tab PO DAILY 12/27/18 Mupirocin [Bactroban 2% Ointment 22 gm] 1 applic TP DAILY 12/27/18 Nitroglycerin [Nitrostat 0.4 mg (1/150 Gr) Tabs 25/Bottle] 1 tab SL Q5MP PRN 12/27/18 Polyvinyl Alcohol [Liquitears 1.4% Ophth Soln 15 ml] 1 drop OU QID 12/27/18 Ranitidine HCl [Zantac] 300 mg PO WSUPPER 12/27/18 Ropinirole HCl [Requip] 1 mg PO Q12 12/27/18 Sennosides [Senna] 17.2 mg PO PRN PRN 12/27/18 Tramadol HCl [Ultram 50 mg Tablet] 100 mg PO Q8HP PRN 12/27/18 Triamcinolone Acetonide [Aristocort 0.1% Cream 15 gm] 1 applic TP BID 12/27/18 History of Present Illness History of Present Illness: GUY VICTORIA is a 78 year old female Patient presented to the emergency room with increasing right wrist pain, febrile episodes, and overall malaise. She underwent an aspiration of the joint and was sent out on oral antibiotics. She returned the next day with continued febrile presentation which had components of a pre-septic picture. She was admitted to orthopedic service for management of the septic joint. Hospital Course Hospital Course: Patient is admitted the orthopedic service. She started on IV antibiotics. There is limited if any clinical improvement. She subsequently taken to the operating room on Sunday and undergoes an arthroscopic washout of the joint. Following this there is considerable improvement in the patient's overall co ndition, and absence of febrile episodes, and an improving active range of motion of the right wrist. Physical Exam Vital Signs: Temp Pulse Resp BP Pulse Ox 36.6 C 56 L 16 170/81 H 98 12/29/18 23:34 12/29/18 23:34 12/29/18 23:34 12/29/18 23:34 12/29/18 23:34 Intake & Output 12/28/18 12/29/18 12/30/18 06:59 06:59 06:59 Intake Total 2700 2119 806 Output Total 1300 1700 Balance 1400 2119 -894 Weight 72.1 kg 67.4 kg 67.4 kg Physical Exam: Overweight if not obese middle-aged white female sitting in bed. She is alert, oriented, and appropriate. General appearance: PRESENT: no acute distress Head exam: PRESENT: normocephalic Respiratory exam: PRESENT: unlabored Cardiovascular exam: PRESENT: RRR Vascular exam: PRESENT: normal capillary refill GI/Abdominal exam: PRESENT: soft Rectal exam: PRESENT: deferred Extremities exam: PRESENT: other - Right wrist portals well approximated with nylon. There is no erythema or drainage. There is a near full active range of motion. There is brisk capillary refill in each of the digits. [employer] strength is equivalent bilaterally. Neurological exam: PRESENT: alert, awake, oriented to person, oriented to place, oriented to time, oriented to situation. ABSENT: motor sensory deficit Psychiatric exam: PRESENT: appropriate affect, normal mood. ABSENT: homicidal ideation, suicidal ideation Skin exam: PRESENT: dry, intact, warm. ABSENT: cyanosis, rash Results Laboratory Results: 12/27/18 05:55 12/27/18 05:55 Impressions: Chest X-Ray 12/26/18 15:54 IMPRESSION: Possible trace bilateral effusions versus pleural thickening. No additional evidence of acute cardiopulmonary process. Status: Imported from PACS Qualifiers - * PATIENT BEING DISCHARGED WITH ANY OF THE FOLLOWING DIAGNOSIS: No Reason(s) for not prescribing Overlap Therapy:: Not indicated Plan Discharge Plan: Patient to be discharged back to [facility] on activity as tolerated basis. Follow-up with Dr. ochoa in the [facility] for surgery on Sunday.
[2018-12-30] MEDS: TRAMADOL HCL 50 MG TABLET PO PRN (07:45)
[2018-12-30] MEDS: FUROSEMIDE 20 MG TABLET PO SCH (07:46)
[2018-12-30] MEDS: CARVEDILOL 12.5 MG TABLET PO SCH (09:12)
[2018-12-30] MEDS: LOSARTAN POTASSIUM 50 MG TABLET PO SCH (09:12)
[2018-12-30] MEDS: CLONIDINE HCL 0.2 MG TABLET PO SCH (09:12)
[2018-12-30] MEDS: LACTOBACILLUS ACIDOPHILUS 250 MG TAB PO SCH (09:12)
[2018-12-30] MEDS: FOLIC ACID 1 MG TABLET PO SCH (09:13)
[2018-12-30] MEDS: ASCORBIC ACID 500 MG TABLET PO SCH (09:13)
[2018-12-30] MEDS: MULTIVITAMIN TABLET PO SCH (09:13)
[2018-12-30] MEDS: MAGNESIUM OXIDE 400 MG TABLET PO SCH (09:13)
[2018-12-30] MEDS: ROPINIROLE HCL 1 MG TABLET PO SCH (09:13)
[2018-12-30] MEDS: FEBUXOSTAT 40 MG TABLET PO SCH (09:13)
[2018-12-30] MEDS: DOCUSATE SODIUM 100 MG CAPSULE PO SCH (09:13)
[2018-12-30] MEDS: MUPIROCIN 2% OINTMENT 22 GM TP SCH (09:13)
[2018-12-30] MEDS: HYDROCORTISONE 10 MG TABLET PO SCH (09:13)
[2018-12-30] MEDS: POLYVINYL ALCOHOL 1.4% OPH SOLN 15 ML OU SCH ×2 (09:14→13:35)
[2018-12-30] MEDS: TRIAMCINOLONE ACETONIDE 0.1% CREAM 15 GM TOP SCH (09:14)
[2018-12-30] MEDS: FLUTICASONE NASAL SPRAY 50 MCG/SPRY 120 SPRAY/16 GM NASL SCH (09:14)
[2018-12-30 15:50] VITALS: BP 172/79
--- NOTE | 2019-01-01 09:28 | PDOC TRANSFER SUMMARY ---
General - Admit/Disc Date/PCP Admission Date/Primary Care Provider: 12/26/18 20:14 KATY POSADAS MD Discharge Date: 12/30/18 - Discharge Diagnosis (1) Septic arthritis of right wrist Is this a current diagnosis for this admission?: Yes - Additional Information Discharge Diet: Regular Discharge Activity: Activity As Tolerated, Bedrest Home Medications: Amox Tr/Potassium Clavulanate [Augmentin 875-125 mg Tablet] 1 tab PO Q12 12/27/18 Ascorbic Acid [Vitamin C 500 mg Tablet] 500 mg PO DAILY 12/27/18 Carvedilol [Coreg 12.5 mg Tablet] 25 mg PO Q12 12/27/18 Ceftriaxone Sodium [Rocephin Inj 2000 mg Vial] 1,000 mg IM DAILY 12/27/18 Ciprofloxacin HCl [Cipro 500 mg Tablet] 500 mg PO BID 12/27/18 Clonidine HCl [Catapres 0.2 mg Tablet] 0.2 mg PO Q12 12/27/18 Cyanocobalamin (Vitamin B-12) [Vitamin B-12 Inj 1000 Mcg/1 ml Vial] 1,000 mcg IM .8TH 12/27/18 Diphenhydramine HCl [Benadryl 50 mg Capsule] 50 mg PO Q6HP PRN 12/27/18 Docusate Sodium [Colace 100 mg Capsule] 100 mg PO BID 12/27/18 Febuxostat [Uloric 40 mg Tablet] 40 mg PO DAILY 12/27/18 Fluticasone Propionate [Flonase Nasal [place] 50 Mcg/[place] 16 gm] 2 sprays NASL Q12 12/27/18 Folic Acid [Folvite 1 mg Tablet] 1 mg PO DAILY 12/27/18 Furosemide [Lasix 20 mg Tablet] 20 mg PO QAM 12/27/18 Gabapentin [Neurontin 400 mg Capsule] 400 mg PO Q8 12/27/18 Guar Gum [Benefiber] 1 each PO DAILYP PRN 12/27/18 Hydralazine HCl [Apresoline 50 mg Tablet] 50 mg PO Q8 12/27/18 Hydrocortisone [Cortef 10 Mg Tablet] 10 mg PO DAILY 12/27/18 Hydrocortisone [Hydrocortisone 2.5% Cream 28 gm (Clinic Use)] 1 applic TOP DAILYP PRN 12/27/18 Hydrocortisone/Oatmeal/Aloe/E [Hydrocortisone 1% Cream] 28.4 gm TP Q12 12/27/18 Lactobacillus Acidophilus [Acidophilus] 1 each PO BID 12/27/18 Losartan Potassium [Cozaar 50 mg Tablet] 50 mg PO DAILY 12/27/18 Magnesium Oxide [Mag-Ox 400 mg Tablet] 400 mg PO DAILY 12/27/18 Montelukast Sodium [Singulair 10 mg Tablet] 10 mg PO QHS 12/27/18 Multivitamin [Tab-A-Darek (Multiple Vitamin) Tablet] 1 tab PO DAILY 12/27/18 Mupirocin [Bactroban 2% Ointment 22 gm] 1 applic TP DAILY 12/27/18 Nitroglycerin [Nitrostat 0.4 mg (1/150 Gr) Tabs 25/Bottle] 1 tab SL Q5MP PRN 12/27/18 Polyvinyl Alcohol [Liquitears 1.4% Ophth Soln 15 ml] 1 drop OU QID 12/27/18 Ranitidine HCl [Zantac] 300 mg PO WSUPPER 12/27/18 Ropinirole HCl [Requip] 1 mg PO Q12 12/27/18 Sennosides [Senna] 17.2 mg PO PRN PRN 12/27/18 Tramadol HCl [Ultram 50 mg Tablet] 100 mg PO Q8HP PRN 12/27/18 Triamcinolone Acetonide [Aristocort 0.1% Cream 15 gm] 1 applic TP BID 12/27/18 History of Present Illness Admission Date/PCP: 12/26/18 20:14 KATY POSADAS MD Physical Exam Vital Signs: Temp Pulse Resp BP Pulse Ox 36.8 C 57 L 16 172/79 H 97 12/30/18 15:19 12/30/18 15:19 12/30/18 15:19 12/30/18 15:19 12/30/18 15:19 Intake & Output 12/31/18 01/01/19 01/02/19 06:59 06:59 06:59 Intake Total 739 Output Total 900 Balance -161 Results Laboratory Results: 12/27/18 05:55 12/27/18 05:55 12/26/18 16:37 Blood Blood Culture - Final NO GROWTH IN 5 DAYS 12/26/18 16:30 Blood Blood Culture - Final NO GROWTH IN 5 DAYS Impressions: Chest X-Ray 12/26/18 15:54 IMPRESSION: Possible trace bilateral effusions versus pleural thickening. No additional evidence of acute cardiopulmonary process. Qualifiers - * PATIENT BEING DISCHARGED WITH ANY OF THE FOLLOWING DIAGNOSIS: No Reason(s) for not prescribing Overlap Therapy:: Not indicated Plan Discharge Plan: Please refer to discharge summary dictated December 30, 2018 for all details regarding the transfer to snf facility
[2019-01-03] MEDS ORDERED: CYANOCOBALAMIN (VITAMIN B-12) INJ 1000 MCG/1 ML VIAL IM SCH (10:00)
== END 2018-12-30 16:08 ==
LOC: ER 15:22 → INTOOBSV 20:14 → EH 20:14 → 4S 21:52
PROVIDERS: ADMIT Orthopaedic Surgery; ATTEND Orthopaedic Surgery
PROC: 0MB54ZZ Excision of Right Wrist Bursa and Ligament, Percutaneous Endoscopic Approach (ICD-10-PCS; principal; 2018-12-27 17:45)
DX: M00.9 Pyogenic arthritis, unspecified (principal); M11.231 Other chondrocalcinosis, right wrist; M65.831 Other synovitis and tenosynovitis, right forearm; S63.521A Sprain of radiocarpal joint of right wrist, initial encounter; X58.XXXA Exposure to other specified factors, initial encounter; E66.3 Overweight; E11.22 Type 2 diabetes mellitus with diabetic chronic kidney disease; I12.9 Hypertensive chronic kidney disease with stage 1 through stage 4 chronic kidney disease, or unspecified chronic kidney disease; N18.3 Chronic kidney disease, stage 3 (moderate); M10.9 Gout, unspecified; M06.9 Rheumatoid arthritis, unspecified; R05 Cough; Z79.899 Other long term (current) drug therapy; Z87.891 Personal history of nicotine dependence
CPT/HCPCS: 29846; 36415 ×2; 87040 ×2; 87070; 87205; 85025 ×2; 85610; 85730; 87075; 80048; 80053; 71045; G0378 ×6; J2250; J3490 ×3; A9270 ×70; J1100; J3010; J0696 ×4; J2405; J7060 ×2; J7120 ×2; J2704; J3370 ×4; 1830; J7620

== ENCOUNTER 2019-05-31 09:18 | Inpatient (IN) | payer MEDICARE, MEDICAID ==
--- NOTE | 2019-05-31 10:27 | ER Document Report ---
ED Medical Screen (RME) - General Chief Complaint: Chest Pain Stated Complaint: SHORTNESS OF BREATH Time Seen by Provider: 05/31/19 10:16 Primary Care Provider: KATY POSADAS MD [Primary Care Provider] - Follow up as needed Mode of Arrival: Medic Information source: Relative, Emergency Med Personnel, Outside Facility Records Notes: This 78-year-old presents female presents from [facility] with complaints of chest pain, shortness of breath per EMS. Apparently they gave her 3 sublingual NTG without relief of symptoms. Daughter is in the room and reports patient gets like this when her oxygen is low. O2 sats noted as 98% on the monitor. Patient is hunched over. Daughter reports this is how patient is usually positioned. Patient seems to be lethargic but will respond to verbal stimuli by opening her eyes, grunting and closing her eyes. Daughter reports that patient gets this way when she has a UTI or her oxygen is low. Discussed chronic issues and daughter forgets name of chronic illness that placed patient in [facility]. I have greeted and performed a rapid initial assessment of this patient. A comprehensive ED assessment and evaluation of the patient, analysis of test results and completion of the medical decision making process will be conducted by additional ED providers. Dictation of this chart was performed using voice recognition software; therefore, there may be some unintended grammatical errors. TRAVEL OUTSIDE OF THE [place] IN LAST 30 DAYS: No - Related Data Allergies/Adverse Reactions: HERIBERTO Inhibitors [Heriberto Inhibitors] Allergy (Verified 12/26/18 15:26) sulfamethoxazole [From Bactrim] Allergy (Verified 12/26/18 15:26) trimethoprim [From Bactrim] Allergy (Verified 12/26/18 15:26) Past Medical History - Past Medical History Cardiac Medical History: Reports: Hx Hypercholesterolemia, Hx Hypertension Neurological Medical History: Denies: Hx Cerebrovascular Accident Endocrine Medical History: Reports: Hx Diabetes Mellitus Type 2 Renal/ Medical History: Reports: Hx Renal Insufficiency. Denies: Hx Peritoneal Dialysis GI Medical History: Reports: Hx Gastroesophageal Reflux Disease Musculoskeltal Medical History: Reports Hx Arthritis - Rheumatoid arthritis Psychiatric Medical History: Reports: Hx Depression Past Surgical History: Reports: Hx Genitourinary Surgery - bladder tack, Hx Hysterectomy, Hx Orthopedic Surgery - left ankle and foot - Immunizations Hx Diphtheria, Pertussis, Tetanus Vaccination: No History of Influenza Vaccine for 07/2017 - 12/2017 Season: Yes Influenza Administration Date for 07/2017 - 12/2017 Season: 07/29/17 Physical Exam - Vital signs Vitals: Resp Pulse Ox 21 H 96 05/31/19 09:36 05/31/19 09:36 Course - Vital Signs Vital signs: Temp Pulse Resp BP Pulse Ox 99.0 F 77 19 117/54 L 99 05/31/19 09:52 05/31/19 13:07 05/31/19 13:07 05/31/19 13:07 05/31/19 13:07 - Laboratory Result Diagrams: 05/31/19 09:35 05/31/19 09:35 Laboratory results interpreted by me: 05/31/19 05/31/19 05/31/19 09:35 09:35 09:35 WBC 2.0 L Hgb 11.4 L Hct 34.7 L Monocytes % (Manual) 0 L Eosinophils % (Manual) 10 H Abs Neuts (Manual) 1.3 L Abs Monocytes (Manual) 0.0 L Sodium 134.9 L Potassium 5.8 H BUN 52 H Creatinine 1.50 H Est GFR ( Amer) 41 L Est GFR (Non-Af Amer) 34 L Glucose 126 H POC Glucose Lactic Acid 2.8 H AST 51 H Urine Protein Urine Blood Ur Leukocyte Esterase 05/31/19 05/31/19 09:37 11:25 WBC Hgb Hct Monocytes % (Manual) Eosinophils % (Manual) Abs Neuts (Manual) Abs Monocytes (Manual) Sodium Potassium BUN Creatinine Est GFR ( Amer) Est GFR (Non-Af Amer) Glucose POC Glucose 129 H Lactic Acid AST Urine Protein 100 H Urine Blood SMALL H Ur Leukocyte Esterase LARGE H Doctor's Discharge - Discharge Referrals: KATY POSADAS MD [Primary Care Provider] - Follow up as needed
[2019-05-31] MEDS ORDERED: ASPIRIN 81 MG TABLET, CHEWABLE PO ONE ×2 (10:38→12:33)
[2019-05-31 10:59] LABS: ALBUMIN 3.9 g/dL (3.5-5.0); ALKALINE PHOSPHATASE 79 U/L (38-126); ANION GAP 11 (5-19); ASPARTATE AMINO TRANSFERASE 51 U/L (14-36); BILIRUBIN,DIRECT 0.3 mg/dL (0.0-0.4); BILIRUBIN,TOTAL 0.9 mg/dL (0.2-1.3); BLOOD UREA NITROGEN 52 mg/dL (7-20); CALCIUM 9.3 mg/dL (8.4-10.2); CARBON DIOXIDE 25 mmol/L (22-30); CHLORIDE 99 mmol/L (98-107); GLUCOSE 126 mg/dL (75-110); POTASSIUM 5.8 mmol/L (3.6-5.0); TOTAL PROTEIN 7.2 g/dL (6.3-8.2)
[2019-05-31 11:03] LABS: INTERNATIONAL RATION (INR) 1.08
[2019-05-31 11:04] LABS: PARTIAL THROMBOPLASTIN TIME 25.2 SEC (23.5-35.8)
[2019-05-31] MEDS ORDERED: NORMAL SALINE 1000 ML 1,000 ML IV ONE (11:06)
[2019-05-31] MEDS ORDERED: CEFTRIAXONE 1 GM/D5W RTU 50 ML IV ONE (11:06)
[2019-05-31 11:07] LABS: HEMATOCRIT 34.7 % (36.0-47.0); HEMOGLOBIN 11.4 g/dL (12.0-15.5); MEAN CORPUSCULAR VOLUME 91 fl (80-97); PLATELET COUNT 181 10^3/uL (150-450); RED BLOOD COUNT 3.82 10^6/uL (3.72-5.28); RED CELL DISTRIBUTION WIDTH 13.9 % (11.5-14.0)
[2019-05-31] MEDS ORDERED: CEFTRIAXONE SODIUM 1,000 MG in DEXTROSE 5%-WATER 50 ML IV ONE (11:15)
--- NOTE | 2019-05-31 11:16 | EKG REPORT ---
SEVERITY:- ABNORMAL ECG - SINUS RHYTHM LAD, CONSIDER LEFT ANTERIOR FASCICULAR BLOCK LEFT VENTRICULAR HYPERTROPHY ANTERIOR Q WAVES AND ST ELEVATION DUE TO LVH WITH STRAIN PATTERN NS IVCD : Confirmed by: Roselyn Montalvo MD 31-May-2019 11:15:45
--- NOTE | 2019-05-31 11:18 | EKG REPORT ---
SEVERITY:- ABNORMAL ECG - SINUS RHYTHM LAD, CONSIDER LEFT ANTERIOR FASCICULAR BLOCK LEFT VENTRICULAR HYPERTROPHY NS IVCD. ANTERIOR Q WAVES AND ST ELEVATION DUE TO LVH WITH STRAIN PATTERN : Confirmed by: Roselyn Montalvo MD 31-May-2019 11:16:57
[2019-05-31 11:34] LABS: ABSOLUTE LYMPHOCYTES# (MANUAL) 0.5 10^3/uL (0.5-4.7); BASOPHILS % (MANUAL) 0 % (0-2); EOSINOPHILS % (MANUAL) 10 % (0-6); LYMPHOCYTES % (MANUAL) 26 % (13-45); MONOCYTES % (MANUAL) 0 % (3-13); SEGMENTED NEUTROPHILS % (MAN) 64 % (42-78); TOTAL CELLS COUNTED 50
[2019-05-31 11:37] LABS: TOXIC VACUOLATION PRESENT
[2019-05-31 11:39] LABS: OVALOCYTES SLIGHT; PLATELET CLUMPS PRESENT; PLATELET COMMENT ADEQUATE; POIKILOCYTOSIS SLIGHT
[2019-05-31 12:04] LABS: AMORPHOUS SEDIMENT,URINE TRACE /HPF; APPEARANCE,URINE CLOUDY; BILIRUBIN,URINE NEGATIVE (NEGATIVE); COLOR,URINE YELLOW; GLUCOSE, URINE NEGATIVE (NEGATIVE); KETONES,URINE NEGATIVE (NEGATIVE); LEUKOCYTE ESTERASE,URINE LARGE (NEGATIVE); NITRITE,URINE NEGATIVE (NEGATIVE); PROTEIN,URINE 100 mg/dL (NEGATIVE); URINE SPECIFIC GRAVITY 1.009; UROBILINOGEN,URINE NEGATIVE mg/dL (<2.0)
[2019-05-31 12:34] LABS: ARTERIAL BLOOD BASE EXCESS -2.6 mmol/L; ARTERIAL BLOOD H2CO3 1.16 mmol/L (1.05-1.35); ARTERIAL BLOOD HCO3 22.2 mmol/L (20-24); ARTERIAL BLOOD O2 SATURATION 96.7 % (94-98); ARTERIAL BLOOD PCO2 38.7 mmHg (35-45); ARTERIAL BLOOD PH 7.38 (7.35-7.45); ARTERIAL BLOOD PO2 88.9 mmHg (80-100); ARTERIAL BLOOD TOTAL CO2 23.4 mmol/L (21-25)
[2019-05-31 12:36] LABS: ARTERIAL BLOOD FIO2 4L
--- NOTE | 2019-05-31 12:47 | ER Document Report ---
ED General - General Chief Complaint: Chest Pain Stated Complaint: SHORTNESS OF BREATH Time Seen by Provider: 05/31/19 10:16 Primary Care Provider: KATY POSADAS MD [Primary Care Provider] - Follow up as needed Mode of Arrival: Medic Notes: 78-year-old female presents emergency department from [facility] via EMS complaining of shortness of breath and intermittent chest pain since yesterday. Patient complained of this at the skilled nursing however here she is not giving me any history and is not answering any questions. Per EMS she was 89% initially on room air at the nursing facility and they put her on 4 L via nasal cannula. Patient does not require oxygen at baseline. Daughter in the room states that normally the patient is quite vibrant, interactive, oriented to person and place and time and will usually transfer herself from bed to the wheelchair without difficulty. States that the way she looks today is consistent with the way she usually looks when she either is hypoxic or has a urinary tract infection. TRAVEL OUTSIDE OF THE [place] IN LAST 30 DAYS: No - Related Data Allergies/Adverse Reactions: HERIBERTO Inhibitors [Heriberto Inhibitors] Allergy (Verified 12/26/18 15:26) sulfamethoxazole [From Bactrim] Allergy (Verified 12/26/18 15:26) trimethoprim [From Bactrim] Allergy (Verified 12/26/18 15:26) Past Medical History - General Information source: Relative, Emergency Med Personnel, Outside Facility Records Cannot obtain history due to: Altered mental status - Social History Smoking Status: Former Smoker Frequency of alcohol use: None Drug Abuse: None Lives with: Residential Family History: Hypertension Patient has suicidal ideation: No Patient has homicidal ideation: No - Past Medical History Cardiac Medical History: Reports: Hx Hypercholesterolemia, Hx Hypertension Neurological Medical History: Denies: Hx Cerebrovascular Accident Endocrine Medical History: Reports: Hx Diabetes Mellitus Type 2 Renal/ Medical History: Reports: Hx Renal Insufficiency. Denies: Hx Peritonea l Dialysis GI Medical History: Reports: Hx Gastroesophageal Reflux Disease Musculoskeletal Medical History: Reports Hx Arthritis - Rheumatoid arthritis Psychiatric Medical History: Reports: Hx Depression Past Surgical History: Reports: Hx Genitourinary Surgery - bladder tack, Hx Hysterectomy, Hx Orthopedic Surgery - left ankle and foot - Immunizations Hx Diphtheria, Pertussis, Tetanus Vaccination: No Hx Pneumococcal Vaccination: 10/31/15 Review of Systems - Review of Systems -: Yes ROS unobtainable due to patient's medical condition - Limited ROS obtained from records and daughter. Constitutional: See HPI - Weakness Cardiovascular: See HPI Respiratory: See HPI Physical Exam - Vital signs Vitals: Resp Pulse Ox 21 H 96 05/31/19 09:36 05/31/19 09:36 Interpretation: Normal - Notes Notes: GENERAL: Significantly increased thoracic kyphosis, slumped forward in bed, neck bent forward, able to look up and look at me and say hi honey bun, otherwise does not speak or answer questions, appears somewhat short of breath. HEAD: Normocephalic, atraumatic EYES: Pupils equal, round and reactive to light, extraocular movements intact. ENT: Oral mucosa moist, tongue midline. NECK: Full range of motion, supple, trachea midline. LUNGS: Clear to auscultation bilaterally, no wheezes, rales or rhonchi, does have some pursed lip breathing. HEART: Regular rate and rhythm, no murmurs, gallops, rubs. ABDOMEN: Soft, nontender, nondistended, bowel sounds present in all 4 quadrants. EXTREMITIES: Moves all 4 extremities spontaneously, no edema, radial and dorsalis pedis pulses 2/4 bilaterally. No cyanosis. NEUROLOGICAL: Somewhat sleepy, does not answer questions, no facial droop, moves all 4 extremities spontaneously but does not follow commands. biceps and patellar DTRs 2+ bilaterally. SKIN: Warm, Dry, normal turgor, mild erythema to the lower half of the shins bilaterally. Nontender. Course - Re-evaluation Re-evalutation: 05/31/19 12:46 Initial EKG was brought to me for signature, this EKG showed some changes from baseline and was suspicious for possible STEMI however EMS EKG had shown absolutely no STEMI and patient was no longer complaining of chest pain. Repeat EKG was performed and suspicion for STEMI decreased, I did consult with Dr. Bond, the medical records auditor who happened to be in the emergency department, he stated that he did not see any evidence of a STEMI, stated that it looked like LVH which would account for the slight ST segment elevations with minimal ST segment depressions. Discussed with daughter why we would not be given lytics at this time. Daughter is in agreement with this. 05/31/19 12:47 CBC shows leukopenia with a white blood cell count of 2.0, patient does have a history of this however she has not had it recently, she does have anemia with a hemoglobin of 11.4, this is improved since December, coags unremarkable, arterial b lood gas does not show any CO2 retention or hypoxia however she has been on 4 L via nasal cannula for at least 2 hours now, potassium is elevated at 5.8, BUN is increased at 52, lactic acid is elevated at 2.8, troponin is positive at 0.149, urinalysis shows large leukocyte esterase, greater than 182 WBCs, this is a cath specimen. Chest x-ray result is not back yet. Patient is being treated with Rocephin empirically for sepsis. 05/31/19 15:44 Chest x-ray shows chronic elevation of the diaphragm, no evidence of pneumonia. Patient is slightly more awake now, not complaining of any chest pain at the time. Discussed the positive troponin with the daughter and the fact that she has run elevated in the past. Discussed that I feel like this is probably more related to the stress of urinary tract infection than a true non-STEMI. We will continue to trend this. Discussed patient with nurse practitioner Zena Wilson, who agrees to admit the patient to her service on the telemetry care [facility]. - Vital Signs Vital signs: Temp Pulse Resp BP Pulse Ox 101.4 F H 77 16 103/53 L 99 05/31/19 15:59 05/31/19 13:07 05/31/19 15:01 05/31/19 15:00 05/31/19 15:01 - Laboratory Result Diagrams: 05/31/19 09:35 05/31/19 09:35 Laboratory results interpreted by me: 05/31/19 05/31/19 05/31/19 09:35 09:35 09:35 WBC 2.0 L Hgb 11.4 L Hct 34.7 L Monocytes % (Manual) 0 L Eosinophils % (Manual) 10 H Abs Neuts (Manual) 1.3 L Abs Monocytes (Manual) 0.0 L Sodium 134.9 L Potassium 5.8 H BUN 52 H Creatinine 1.50 H Est GFR ( Amer) 41 L Est GFR (Non-Af Amer) 34 L Glucose 126 H POC Glucose Lactic Acid 2.8 H AST 51 H Urine Protein Urine Blood Ur Leukocyte Esterase 05/31/19 05/31/19 09:37 11:25 WBC Hgb Hct Monocytes % (Manual) Eosinophils % (Manual) Abs Neuts (Manual) Abs Monocytes (Manual) Sodium Potassium BUN Creatinine Est GFR ( Amer) Est GFR (Non-Af Amer) Glucose POC Glucose 129 H Lactic Acid AST Urine Protein 100 H Urine Blood SMALL H Ur Leukocyte Esterase LARGE H - EKG Interpretation by Me Additional EKG results interpreted by me: 05/31/19 16:12 EKG shows sinus rhythm at a rate of 95, LVH, left axis deviation, ST segment elevations consistent with strain pattern, discussed with cardiology. Poor R wave progression per my interpretation. Performed at 1037 on May 31, 2019. Repeat EKG at 1047 shows sinus rhythm at a rate of 91, again LVH, again strain pattern with ST segment elevation due to the strain pattern, left axis deviation, poor R wave progression per my interpretation. Discharge - Discharge Clinical Impression: Hyperkalemia UTI (urinary tract infection) Qualifiers: Urinary tract infection type: site unspecified Hematuria presence: with hemat uria Qualified Code(s): N39.0 - Urinary tract infection, site not specified Acute renal failure superimposed on stage 3 chronic kidney disease Qualifiers: Acute renal failure type: unspecified Qualified Code(s): N17.9 - Acute kidney failure, unspecified Condition: Fair Disposition: ADMITTED INPATIENT Admitting Provider: Cheryl (Hospitalist) - [facility] Unit Admitted: Telemetry Referrals: KATY POSADAS MD [Primary Care Provider] - Follow up as needed
--- NOTE | 2019-05-31 12:55 | RADIOLOGY REPORT (SQ) ---
EXAM DESCRIPTION: CHEST SINGLE VIEW COMPLETED DATE/TIME: 05/31/2019 12:13 pm REASON FOR STUDY: fever, change in mental status COMPARISON: Prior studies not available due to PACs failure. EXAM PARAMETERS: NUMBER OF VIEWS: One view. TECHNIQUE: Single frontal radiographic view of the chest acquired. RADIATION DOSE: NA LIMITATIONS: None. FINDINGS: LUNGS AND PLEURA: Elevated right hemidiaphragm. Prominent interstitial markings throughou t the lungs. No lobar infiltrate. No pleural effusion or pneumothorax. MEDIASTINUM AND HILAR STRUCTURES: No masses. Contour normal. HEART AND VASCULAR STRUCTURES: Heart normal in size. Normal vasculature. BONES: Chronic appearing degenerative changes in both shoulders. HARDWARE: None in the chest. OTHER: No other significant finding. IMPRESSION: ELEVATION OF THE RIGHT HEMIDIAPHRAGM WITH APPARENT CHRONIC INTERSTITIAL CHANGES. CHRONI C FINDINGS IN THE SHOULDERS. BASED ON PRIOR X-RAY REPORT, THESE FINDINGS PRESUMABLY ARE CHRONIC. NO APPARENT ACUTE FINDINGS. TECHNICAL DOCUMENTATION: JOB ID: [id number] [employer]- All Rights Reserved Reading location - IP/workstation name: [email or web address]
[2019-05-31] MEDS ORDERED: MAGNESIUM HYDROXIDE SUSP 30 ML UDCUP PO PRN (16:49)
[2019-05-31] MEDS ORDERED: MAG HYDROX/AL HYDROX/SIMETH SUSP 30 ML UDCUP PO PRN (16:49)
[2019-05-31] MEDS ORDERED: ALBUTEROL SULFATE 0.083% NEB 2.5 MG/3 ML AMPUL NEB PRN (16:49)
[2019-05-31] MEDS ORDERED: ONDANSETRON HCL INJ/PF 4 MG/2 ML SDV IV PRN (16:49)
[2019-05-31] MEDS ORDERED: ACETAMINOPHEN 325 MG TABLET PO PRN (16:49)
[2019-05-31] MEDS ORDERED: DEXTROSE 40% GEL 15 GM TUBE PO PRN ×2 (16:55)
[2019-05-31] MEDS ORDERED: GLUCAGON,HUMAN RECOMB 1 MG INJ IM PRN (16:55)
[2019-05-31] MEDS ORDERED: DEXTROSE 50%-WATER 25 GM/50 ML DISP.SYRIN IV PRN ×2 (16:55)
--- NOTE | 2019-05-31 17:04 | PDOC H&P ---
History of Present Illness Admission Date/PCP: 05/31/19 16:01 KATY POSADAS MD Patient complains of: ams History of Present Illness: GUY VICTORIA is a 78 year old female with a past medical history significant for CHF, CKD 3, hypertension, DM 2, RA, polymyositis, GERD, and ISABEL who presented to the emergency department today with a complaint of shortness of breath and altered mental status. Evaluation in the emergency department revealed fever of 101.4, hypotension, tachypnea, leukopenia (2.0), baseline anemia, normal coags and ABG, baseline CKD, hyperkalemia (5.8), lactic acidosis (resolved), and troponin of 0.149 (appears to be baseline), CXR that is negative for acute findings, and urinalysis positive for UTI. The patient is provided a 1 L saline bolus and IV Rocephin. She is referred to the hospitalist service for admission and management of sepsis secondary to UTI. Past Medical History Cardiac Medical History: Reports: Congestive Heart Failure, Myocardial Infarction, Hyperlipidema, Hypertension Denies: Coronary Artery Disease Pulmonary Medical History: Reports: Sleep Apnea EENT Medical History: Reports: None Neurological Medical History: Reports: None Endocrine Medical History: Reports: Diabetes Mellitus Type 2 Renal/ Medical History: Reports: Chronic Kidney Disease Malignancy Medical History: Reports: None GI Medical History: Reports: Gastroesophageal Reflux Disease Musculoskeltal Medical History: Reports: Arthritis - Rheumatoid arthritis Skin Medical History: Reports: None Psychiatric Medical History: Reports: Depression Hematology: Reports: Anemia Past Surgical History Past Surgical History: Reports: Hysterectomy, Orthopedic Surgery - left ankle and foot Social History Information Source: [facility] Records Lives with: [facility] Smoking Status: Former Smoker Frequency of Alcohol Use: None Hx Recreational Drug Use: No Drugs: None Hx Prescription Drug Abuse: No - Advance Directive Resuscitation Status: Do Not Resuscitate Surrogate healthcare decision maker:: The patient's daughter, Emelyn Huertas, Family History Family History: Hypertension Parental Family History Reviewed: Yes Children Family History Reviewed: Yes Sibling(s) Family History Reviewed.: Yes Medication/Allergy Home Medications: Amox Tr/Potassium Clavulanate [Augmentin 875-125 mg Tablet] 1 tab PO Q12 12/27/18 Ascorbic Acid [Vitamin C 500 mg Tablet] 500 mg PO DAILY 12/27/18 Carvedilol [Coreg 12.5 mg Tablet] 25 mg PO Q12 12/27/18 Ceftriaxone Sodium [Rocephin Inj 2000 mg Vial] 1,000 mg IM DAILY 12/27/18 Ciprofloxacin HCl [Cipro 500 mg Tablet] 500 mg PO BID 12/27/18 Clonidine HCl [Catapres 0.2 mg Tablet] 0.2 mg PO Q12 12/27/18 Cyanocobalamin (Vitamin B-12) [Vitamin B-12 Inj 1000 Mcg/1 ml Vial] 1,000 mcg IM .8TH 12/27/18 Diphenhydramine HCl [Benadryl 50 mg Capsule] 50 mg PO Q6HP PRN 12/27/18 Docusate Sodium [Colace 100 mg Capsule] 100 mg PO BID 12/27/18 Febuxostat [Uloric 40 mg Tablet] 40 mg PO DAILY 12/27/18 Fluticasone Propionate [Flonase Nasal [place] 50 Mcg/[place] 16 gm] 2 sprays NASL Q12 12/27/18 Folic Acid [Folvite 1 mg Tablet] 1 mg PO DAILY 12/27/18 Furosemide [Lasix 20 mg Tablet] 20 mg PO QAM 12/27/18 Gabapentin [Neurontin 400 mg Capsule] 400 mg PO Q8 12/27/18 Guar Gum [Benefiber] 1 each PO DAILYP PRN 12/27/18 Hydralazine HCl [Apresoline 50 mg Tablet] 50 mg PO Q8 12/27/18 Hydrocortisone [Cortef 10 Mg Tablet] 10 mg PO DAILY 12/27/18 Hydrocortisone [Hydrocortisone 2.5% Cream 28 gm (Clinic Use)] 1 applic TOP DAILYP PRN 12/27/18 Hydrocortisone/Oatmeal/Aloe/E [Hydrocortisone 1% Cream] 28.4 gm TP Q12 12/27/18 Lactobacillus Acidophilus [Acidophilus] 1 each PO BID 12/27/18 Losartan Potassium [Cozaar 50 mg Tablet] 50 mg PO DAILY 12/27/18 Magnesium Oxide [Mag-Ox 400 mg Tablet] 400 mg PO DAILY 12/27/18 Montelukast Sodium [Singulair 10 mg Tablet] 10 mg PO QHS 12/27/18 Multivitamin [Tab-A-Darek (Multiple Vitamin) Tablet] 1 tab PO DAILY 12/27/18 Mupirocin [Bactroban 2% Ointment 22 gm] 1 applic TP DAILY 12/27/18 Nitroglycerin [Nitrostat 0.4 mg (1/150 Gr) Tabs 25/Bottle] 1 tab SL Q5MP PRN 12/27/18 Polyvinyl Alcohol [Liquitears 1.4% Ophth Soln 15 ml] 1 drop OU QID 12/27/18 Ranitidine HCl [Zantac] 300 mg PO WSUPPER 12/27/18 Ropinirole HCl [Requip] 1 mg PO Q12 12/27/18 Sennosides [Senna] 17.2 mg PO PRN PRN 12/27/18 Tramadol HCl [Ultram 50 mg Tablet] 100 mg PO Q8HP PRN 12/27/18 Triamcinolone Acetonide [Aristocort 0.1% Cream 15 gm] 1 applic TP BID 12/27/18 Allergies/Adverse Reactions: HERIBERTO Inhibitors [Heriberto Inhibitors] Allergy (Verified 12/26/18 15:26) sulfamethoxazole [From Bactrim] Allergy (Verified 12/26/18 15:26) trimethoprim [From Bactrim] Allergy (Verified 12/26/18 15:26) Review of Systems ROS unobtainable: Due to mental status Physical Exam Vital Signs: Temp Pulse Resp BP Pulse Ox 101.4 F H 77 14 101/48 L 96 05/31/19 15:59 05/31/19 13:07 05/31/19 16:01 05/31/19 16:00 05/31/19 16:01 Intake & Output 05/30/19 05/31/19 06/01/19 06:59 06:59 06:59 Intake Total 1050 Balance 1050 Weight 65.771 kg General appearance: PRESENT: no acute distress, well-developed, well-nourished Head exam: PRESENT: atraumatic, normocephalic Eye exam: PRESENT: conjunctiva pink, EOMI - Left eye lateral deviation, PERRLA. ABSENT: scleral icterus Ear exam: PRESENT: normal external ear exam Mouth exam: PRESENT: dry mucosa, tongue midline Neck exam: ABSENT: carotid bruit, JVD, lymphadenopathy, thyromegaly Respiratory exam: PRESENT: clear to auscultation michael, symmetrical, tachypnea, unlabored. ABSENT: rales, rhonchi, wheezes Cardiovascular exam: PRESENT: RRR, +S1, +S2. ABSENT: diastolic murmur, rubs, systolic murmur Pulses: PRESENT: normal dorsalis pedis pul Vascular exam: PRESENT: normal capillary refill GI/Abdominal exam: PRESENT: normal bowel sounds, soft. ABSENT: distended, guarding, mass, organolmegaly, rebound, tenderness Rectal exam: PRESENT: deferred Extremities exam: PRESENT: full ROM - Moves all extremities spontaneously. ABSENT: calf tenderness, clubbing, pedal edema Neurological exam: PRESENT: other - Lethargic; opens eyes to voice, mumbles incoherently in response to questions, does not follow commands. ABSENT: motor sensory deficit Skin exam: PRESENT: dry, intact, pallor, warm. ABSENT: cyanosis, rash Results Laboratory Results: 05/31/19 09:35 05/31/19 09:35 05/31/19 05/31/19 05/31/19 09:35 09:35 09:35 WBC 2.0 L RBC 3.82 Hgb 11.4 L Hct 34.7 L MCV 91 MCH 30.0 MCHC 33.0 RDW 13.9 Plt Count 181 Seg Neutrophils % Not Reportable Lymphocytes % Not Reportable Monocytes % Not Reportable Eosinophils % Not Reportable Basophils % Not Reportable Absolute Neutrophils Not Reportable Absolute Lymphocytes Not Reportable Absolute Monocytes Not Reportable Absolute Eosinophils Not Reportable Absolute Basophils Not Reportable Carbonic Acid HCO3/H2CO3 Ratio ABG pH ABG pCO2 ABG pO2 ABG HCO3 ABG O2 Saturation ABG Base Excess FiO2 Sodium 134.9 L Potassium 5.8 H Chloride 99 Carbon Dioxide 25 Anion Gap 11 BUN 52 H Creatinine 1.50 H Est GFR ( Amer) 41 L Est GFR (Non-Af Amer) 34 L Glucose 126 H Lactic Acid 2.8 H Calcium 9.3 Total Bilirubin 0.9 AST 51 H Alkaline Phosphatase 79 Total Protein 7.2 Albumin 3.9 Urine Color Urine Appearance Urine pH Ur Specific [place] Urine Protein Urine Glucose (UA) Urine Ketones Urine Blood Urine Nitrite Ur Leukocyte Esterase Urine WBC (Auto) Urine RBC (Auto) 05/31/19 05/31/19 05/31/19 11:25 12:08 13:23 WBC RBC Hgb Hct MCV MCH MCHC RDW Plt Count Seg Neutrophils % Lymphocytes % Monocytes % Eosinophils % Basophils % Absolute Neutrophils Absolute Lymphocytes Absolute Monocytes Absolute Eosinophils Absolute Basophils Carbonic Acid 1.16 HCO3/H2CO3 Ratio 19:1 ABG pH 7.38 ABG pCO2 38.7 ABG pO2 88.9 ABG HCO3 22.2 ABG O2 Saturation 96.7 ABG Base Excess -2.6 FiO2 4L Sodium Potassium Chloride Carbon Dioxide Anion Gap BUN Creatinine Est GFR ( Amer) Est GFR (Non-Af Amer) Glucose Lactic Acid 0.7 Calcium Total Bilirubin AST Alkaline Phosphatase Total Protein Albumin Urine Color YELLOW Urine Appearance CLOUDY Urine pH 8.0 Ur Specific [place] 1.009 Urine Protein 100 H Urine Glucose (UA) NEGATIVE Urine Ketones NEGATIVE Urine Blood SMALL H Urine Nitrite NEGATIVE Ur Leukocyte Esterase LARGE H Urine WBC (Auto) >182 Urine RBC (Auto) 4 05/31/19 09:35 Troponin I 0.149 Impressions: Chest X-Ray 05/31/19 10:25 IMPRESSION: ELEVATION OF THE RIGHT HEMIDIAPHRAGM WITH APPARENT CHRONIC INTERSTITIAL CHANGES. CHRONIC FINDINGS IN THE SHOULDERS. BASED ON PRIOR X-RAY REPORT, THESE FINDINGS PRESUMABLY ARE CHRONIC. NO APPARENT ACUTE FINDINGS. Assessment and Plan - Diagnosis (1) Sepsis Qualifiers: Sepsis type: sepsis due to unspecified organism Severe sepsis acute organ dysfunction type: encephalopathy Severe sepsis shock status: without septic shock Is this a current diagnosis for this admission?: Yes Plan: The patient presents with sepsis due to UTI, present on admission, evidenced by acute encephalopathy, fever, tachycardia, tachypnea, hypotension, leukopenia, elevated lactic acidosis, and urinalysis positive for UTI. Patient has already been provided 1 L normal saline bolus and IV Rocephin. Follow-up lactic acid is normal. Patient is admitted to the medical floor and continuous cardiac telemetry. We will continue IV fluids; monitor closely for evidence of fluid volume overload given patient's history of diastolic heart failure. Blood and urine cultures are pending, will adjust antibiotics as cultures result. (2) UTI (urinary tract infection) Qualifiers: Urinary tract infection type: site unspecified Hematuria presence: with hematuria Qualified Code(s): N39.0 - Urinary tract infection, site not specified; R31.9 - Hematuria, unspecified Is this a current diagnosis for this admission?: Yes Plan: Patient presents with sepsis (fever, tachycardia, tachypnea, hypotension, leukopenia, Elevated lactic acid, and urinalysis suggesting UTI). Blood and urine cultures are pending. Patient has been empirically started on IV Rocephin. Will adjust as cultures result. (3) Altered mental status Qualifiers: Altered mental status type: unspecified Qualified Code(s): R41.82 - Altered mental status, unspecified Is this a current diagnosis for this admission?: Yes Plan: Acute metabolic encephalopathy secondary to sepsis/UTI. Management of sepsis as described elsewhere Cultures and antibiotics described elsewhere. Fall and aspiration precautions. Q2 turns. Supportive care. (4) Type 2 diabetes mellitus Qualifiers: Diabetes mellitus complication detail: with polyneuropathy Is this a current diagnosis for this admission?: Yes Plan: Accu-Cheks before meals and at bedtime with Humalog for sliding scale coverage. Registered dietitian is consulted. Hypoglycemia protocol. (5) CKD (chronic kidney disease), stage III Is this a current diagnosis for this admission?: Yes Plan: Patient's family member endorses history of CKD 3. On admission she is found to have a creatinine of 1.50 and BUN of 52; EGFR 34. Creatinine and EGFR are at baseline. BUN is elevated from prior labs (typically Mid 30s) Gentle IV fluids. Avoid nephrotoxic medications as able. Daily chemistries. (6) Anemia in chronic kidney disease Qualifiers: Chronic kidney disease stage: stage 3 (moderate) Qualified Code(s): N18.3 - Chronic kidney disease, stage 3 (moderate); D63.1 - Anemia in chronic kidney disease; D63.1 - Anemia in chronic kidney disease Is this a current diagnosis for this admission?: Yes Plan: Hemoglobin of 11.4; up from base No evidence of active bleeding at this time. Daily CBC (7) CHF (congestive heart failure) Qualifiers: Heart failure chronicity: unspecified Is this a current diagnosis for this admission?: Yes Plan: Per [facility] records patient has a history of diastolic CHF. Echocardiogram from 12/16 demonstrated normal LVEF with mild to moderate diastolic dysfunction and mild pulmonary hypertension. We will resume the patient's home medication regiment once reconciled. Monitor closely for development of fluid volume overload while providing IV fluids. Daily weights, strict I&O's (8) Hyperkalemia Is this a current diagnosis for this admission?: Yes Plan: Unclear etiology; possibly related to CKD and dehydration. Potassium on admission is 5.8. EKG negative for peaked T waves. Reviewed by Dr. Bond per ED provider. Lactulose x1. IV fluids. Monitor on continuous telemetry. Follow-up chemistry. - Time Time Spent with patient: 35 or more minutes Medications reviewed and adjusted accordingly: Yes Anticipated discharge: SNF - Long-term resident at [facility] - Inpatient Certification Based on my medical assessment, after consideration of the patient's comorbidities, presenting symptoms, or acuity I expect that the services needed warrant INPATIENT care.: Yes I certify that my determination is in accordance with my understanding of Medicare's requirements for reasonable and necessary INPATIENT services [42 CFR 412.3e].: Yes Medical Necessity: Failure to Improve With Outpatient Therapy, Need Close Monitoring Due to Risk of Patient Decompensation, Need For IV Fluids, Need For Continuous Telemetry Monitoring, Need for IV Antibiotics, Risk of Complication if Not Cared For in Hospital, Risk of Diagnosis Which Will Require Inpatient Eval/Care/Monitoring
[2019-05-31] MEDS ORDERED: LACTULOSE SYRUP 20 GM/30 ML UDCUP PO ONE (18:30)
[2019-05-31] MEDS: NORMAL SALINE 1000 ML 1,000 ML IV PRN (18:34)
[2019-05-31] MEDS ORDERED: ENOXAPARIN SODIUM INJ 80 MG/0.8 ML DISP.SYRIN SUBCUT ONE ×2 (19:30)
[2019-05-31] MEDS: INSULIN LISPRO 100 UNIT/ML 3 ML VIAL SUBCUT SCH (21:35)
[2019-05-31] MEDS ORDERED: FAMOTIDINE 20 MG TABLET PO SCH (22:00)
[2019-06-01] MEDS: IPRATROPIUM/ALBUTEROL 0.5-2.5 MG/3 ML AMPUL NEB SCH ×4 (00:05→23:49)
[2019-06-01] MEDS: NORMAL SALINE 1000 ML 1,000 ML IV PRN ×3 (01:23→19:19)
[2019-06-01] MEDS: ENOXAPARIN SODIUM INJ 80 MG/0.8 ML DISP.SYRIN SUBCUT SCH ×2 (05:48→17:51)
[2019-06-01 05:54] LABS: ABSOLUTE LYMPHOCYTES (AUTO) 1.9 10^3/uL (0.5-4.7); ABSOLUTE MONOCYTES (AUTO) 1.3 10^3/uL (0.1-1.4); BASOPHILS % (AUTO) 0.3 % (0-2); EOSINOPHILS % (AUTO) 0.1 % (0-6); HEMATOCRIT 30.5 % (36.0-47.0); HEMOGLOBIN 10.2 g/dL (12.0-15.5); LYMPHOCYTES % (AUTO) 13.6 % (13-45); MEAN CORPUSCULAR HEMOGLOBIN 30.2 pg (27.0-33.4); MEAN CORPUSCULAR HGB CONC 33.3 g/dL (32.0-36.0); MEAN CORPUSCULAR VOLUME 91 fl (80-97); MONOCYTES % (AUTO) 8.9 % (3-13); PLATELET COUNT 149 10^3/uL (150-450); RED BLOOD COUNT 3.36 10^6/uL (3.72-5.28); RED CELL DISTRIBUTION WIDTH 14.1 % (11.5-14.0); SEGMENTED NEUTROPHILS % (AUTO) 77.1 % (42-78); TOTAL CELLS COUNTED % (AUTO) 100 %; WHITE BLOOD COUNT 14.2 10^3/uL (4.0-10.5)
[2019-06-01 06:17] LABS: ANION GAP 7 (5-19); BLOOD UREA NITROGEN 55 mg/dL (7-20); CARBON DIOXIDE 25 mmol/L (22-30); CHLORIDE 105 mmol/L (98-107); GLUCOSE 77 mg/dL (75-110)
[2019-06-01 06:38] LABS: POTASSIUM 4.6 mmol/L (3.6-5.0)
[2019-06-01] MEDS: INSULIN LISPRO 100 UNIT/ML 3 ML VIAL SUBCUT SCH ×4 (07:28→21:24)
[2019-06-01] MEDS ORDERED: IPRATROPIUM/ALBUTEROL 0.5-2.5 MG/3 ML AMPUL NEB PRN (08:53)
[2019-06-01] MEDS ORDERED: GUAR GUM PO PRN (08:53)
[2019-06-01] MEDS ORDERED: CEFTRIAXONE 1 GM/D5W RTU 1 GM/50 ML RTUPB IV SCH (10:00)
[2019-06-01] MEDS: CEFTRIAXONE SODIUM 1,000 MG in DEXTROSE 5%-WATER 50 ML IV SCH (10:20)
[2019-06-01] MEDS: TRAMADOL HCL 50 MG TABLET PO PRN ×2 (10:24→21:35)
[2019-06-01] MEDS: MAGNESIUM OXIDE 400 MG TABLET PO SCH (10:26)
[2019-06-01] MEDS: FAMOTIDINE 20 MG TABLET PO SCH (10:26)
[2019-06-01] MEDS: DOCUSATE SODIUM 100 MG CAPSULE PO SCH (10:26)
[2019-06-01] MEDS: LOSARTAN POTASSIUM 50 MG TABLET PO SCH (10:26)
[2019-06-01] MEDS: ASPIRIN 81 MG TABLET, CHEWABLE PO SCH (10:26)
[2019-06-01] MEDS: CLONIDINE HCL 0.2 MG TABLET PO SCH ×2 (10:26→21:24)
[2019-06-01] MEDS: ASCORBIC ACID 500 MG TABLET PO SCH (10:26)
[2019-06-01] MEDS: FOLIC ACID 1 MG TABLET PO SCH (10:26)
[2019-06-01] MEDS: CARVEDILOL 12.5 MG TABLET PO SCH ×2 (10:26→21:23)
[2019-06-01] MEDS: FEBUXOSTAT 40 MG TABLET PO SCH (10:27)
[2019-06-01] MEDS: FLUTICASONE NASAL SPRAY 50 MCG/SPRY 120 SPRAY/16 GM NASL SCH ×2 (10:27→21:23)
[2019-06-01] MEDS: HYDROCORTISONE 10 MG TABLET PO SCH (10:27)
[2019-06-01] MEDS: ROPINIROLE HCL 1 MG TABLET PO SCH ×2 (10:27→21:23)
--- NOTE | 2019-06-01 12:56 | PDOC PROGRESS REPORT ---
Subjective Progress Note for:: 06/01/19 Subjective:: GUY VICTORIA is a 78 year old female with a past medical history significant for CHF, CKD 3, hypertension, DM 2, RA, polymyositis, GERD, and ISABEL who was admitted 05/31/2019 for sepsis, UTI, and elevated troponin. Patient was seen on morning rounds. She is found resting in bed comfortably on supplemental oxygen. She is awake, alert and oriented x4. She reports fatigue and her normal arthritic pain. She also complains about her diet; requests to advance from [employer]. She denies fever, chills, chest pain, palpitations, dyspnea, cough, abdominal pain, nausea vomiting and diarrhea. She has no other questions or concerns at this time. No concerns per nursing. Reason For Visit: SEPSIS,UTI,ACUTE ENCEPHALOPATHY Physical Exam Vital Signs: Temp Pulse Resp BP Pulse Ox 98.5 F 61 16 135/61 H 99 06/01/19 08:36 06/01/19 08:36 06/01/19 08:36 06/01/19 08:36 06/01/19 08:36 Intake & Output 05/31/19 06/01/19 06/02/19 06:59 06:59 06:59 Intake Total 1902 1050 Balance 1902 1050 Weight 65.8 kg General appearance: PRESENT: no acute distress, cooperative, hard of hearing, well-developed, well-nourished Head exam: PRESENT: atraumatic, normocephalic Eye exam: PRESENT: conjunctiva pink, EOMI, PERRLA. ABSENT: scleral icterus Mouth exam: PRESENT: moist, tongue midline Neck exam: ABSENT: carotid bruit, JVD, lymphadenopathy, thyromegaly Respiratory exam: PRESENT: clear to auscultation michael, decreased breath sounds - Bibasilar, symmetrical, unlabored, other - Supplemental oxygen by nasal cannula. ABSENT: rales, rhonchi, wheezes Cardiovascular exam: PRESENT: RRR. ABSENT: diastolic murmur, rubs, systolic murmur Pulses: PRESENT: normal dorsalis pedis pul Vascular exam: PRESENT: normal capillary refill GI/Abdominal exam: PRESENT: normal bowel sounds, soft. ABSENT: distended, guarding, mass, organolmegaly, rebound, tenderness Rectal exam: PRESENT: deferred Extremities exam: PRESENT: full ROM. ABSENT: calf tenderness, clubbing, pedal edema Musculoskeletal exam: PRESENT: other - Kyphosis. ABSENT: ambulatory - Wheelchair-bound at baseline Neurological exam: PRESENT: alert, awake, oriented to person, oriented to place, oriented to time, oriented to situation, CN II-XII grossly intact. ABSENT: motor sensory deficit Psychiatric exam: PRESENT: appropriate affect, normal mood. ABSENT: homicidal ideation, suicidal ideation Skin exam: PRESENT: dry, intact, warm. ABSENT: cyanosis, rash Results Laboratory Results: 06/01/19 05:01 06/01/19 05:01 05/31/19 06/01/19 06/01/19 13:23 05:01 05:01 WBC 14.2 H D RBC 3.36 L Hgb 10.2 L Hct 30.5 L MCV 91 MCH 30.2 MCHC 33.3 RDW 14.1 H Plt Count 149 L Seg Neutrophils % 77.1 Lymphocytes % 13.6 Monocytes % 8.9 Eosinophils % 0.1 Basophils % 0.3 Absolute Neutrophils 11.0 H Absolute Lymphocytes 1.9 Absolute Monocytes 1.3 Absolute Eosinophils 0.0 Absolute Basophils 0.0 Sodium 136.7 L Potassium 4.6 D Chloride 105 Carbon Dioxide 25 Anion Gap 7 BUN 55 H Creatinine 1.74 H Est GFR ( Amer) 34 L Est GFR (Non-Af Amer) 28 L Glucose 77 Lactic Acid 0.7 Calcium 8.0 L 05/31/19 05/31/19 05/31/19 09:35 13:23 13:23 Troponin I 0.149 4.190 NT-Pro-B Natriuret Pep 4340 H 05/31/19 06/01/19 19:30 08:01 Troponin I 5.670 3.990 NT-Pro-B Natriuret Pep Impressions: Chest X-Ray 05/31/19 10:25 IMPRESSION: ELEVATION OF THE RIGHT HEMIDIAPHRAGM WITH APPARENT CHRONIC INTERSTITIAL CHANGES. CHRONIC FINDINGS IN THE SHOULDERS. BASED ON PRIOR X-RAY REPORT, THESE FINDINGS PRESUMABLY ARE CHRONIC. NO APPARENT ACUTE FINDINGS. Assessment and Plan - Diagnosis (1) Sepsis Qualifiers: Sepsis type: sepsis due to unspecified organism Severe sepsis acute organ dysfunction type: encephalopathy Severe sepsis shock status: without septic shock Is this a current diagnosis for this admission?: Yes Plan: Improved; Patient has been afebrile overnight, WBC is elevated 14, lactic acidosis is resolved. Vital signs now stable and patient is awake and oriented x4. Patient presented with sepsis due to UTI, present on admission, evidenced by acute encephalopathy, fever, tachycardia, tachypnea, hypotension, leukopenia, e levated lactic acidosis, and urinalysis positive for UTI. Patient has already been provided 1 L normal saline bolus and IV Rocephin. Follow-up lactic acid is normal. Patient is admitted to the medical floor and continuous cardiac telemetry. We will continue IV fluids; monitor closely for evidence of fluid volume overload given patient's history of diastolic heart failure. Blood and urine cultures are pending, will adjust antibiotics as cultures result. (2) UTI (urinary tract infection) Qualifiers: Urinary tract infection type: site unspecified Hematuria presence: with hematuria Qualified Code(s): N39.0 - Urinary tract infection, site not specified; R31.9 - Hematuria, unspecified Is this a current diagnosis for this admission?: Yes Plan: Patient presents with sepsis (fever, tachycardia, tachypnea, hypotension, leukopenia, Elevated lactic acid, and urinalysis suggesting UTI). Blood culture (1 bottle) gram-positive cocci. Urine cultures are pending. Repeat blood cultures pending. Patient has been empirically started on IV Rocephin. Will adjust as cultures result. (3) Altered mental status Qualifiers: Altered mental status type: unspecified Qualified Code(s): R41.82 - Altered mental status, unspecified Is this a current diagnosis for this admission?: Yes Plan: Resolved; now alert and oriented x4. Acute metabolic encephalopathy secondary to sepsis/UTI. Management of sepsis as described elsewhere Cultures and antibiotics described elsewhere. Fall and aspiration precautions. Q2 turns. Supportive care. (4) Type 2 diabetes mellitus Qualifiers: Diabetes mellitus complication detail: with polyneuropathy Is this a current diagnosis for this admission?: Yes Plan: Accu-Cheks before meals and at bedtime with Humalog for sliding scale coverage. Registered dietitian is consulted. Hypoglycemia protocol. (5) CKD (chronic kidney disease), stage III Is this a current diagnosis for this admission?: Yes Plan: Patient's family member endorses history of CKD 3. On admission she is found to have a creatinine of 1.50 and BUN of 52; EGFR 34. Creatinine and EGFR are at baseline. BUN is elevated from prior labs (typically Mid 30s) Continue gentle IV fluids. Avoid nephrotoxic medications as able. Daily chemistries. (6) Anemia in chronic kidney disease Qualifiers: Chronic kidney disease stage: stage 3 (moderate) Qualified Code(s): N18.3 - Chronic kidney disease, stage 3 (moderate); D63.1 - Anemia in chronic kidney disease; D63.1 - Anemia in chronic kidney disease Is this a current diagnosis for this admission?: Yes Plan: Hemoglobin of 10.2; stable No evidence of active bleeding at this time. Daily CBC (7) CHF (congestive heart failure) Qualifiers: Heart failure chronicity: unspecified Is this a current diagnosis for this admission?: Yes Plan: Per [facility] records patient has a history of diastolic CHF. Echocardiogram from 12/16 demonstrated normal LVEF with mild to moderate diastolic dysfunction and m ild pulmonary hypertension. Have resumed the patient's home medication regiment of Carvedilol, clonidine, hydralazine, and losartan. Monitor closely for development of fluid volume overload while providing IV fluids. Daily weights, strict I&O's (8) Hyperkalemia Is this a current diagnosis for this admission?: Yes Plan: Resolved. Unclear etiology; possibly related to CKD and dehydration. Potassium on admission is 5.8-. 4.6. EKG negative for peaked T waves. Reviewed by Dr. Bond per ED provider. We will continue monitor with daily chemistries. (9) Elevated troponin Is this a current diagnosis for this admission?: Yes Plan: Likely demand ischemia secondary to sepsis. Patient was admitted with a troponin of 0.149, peaked at 3.670, now trending down. Most recent 3.99 0. Patient tells me this morning that she is chest pain-free. Discussed with Dr. Bond yesterday; advised to obtain echocardiogram. Continue full dose Lovenox. - Time Time Spent with patient: 25-34 minutes Medications reviewed and adjusted accordingly: Yes Anticipated discharge: SNF - Long-term resident at [facility] Within: within 48 hours
--- NOTE | 2019-06-01 12:57 | Progress Note Acknowledgement ---
Progress Note Acknowledgement Progess Note Acknowledgement: I, the undersigned member of the medical staff with appropriate privileges and with supervisory authority over Zena Wilson, a [facility] practice allied health professional, acknowledge that I have reviewed the progress notes entered on this patient, and in my professional judgment believe that the assessment made and/or any care evidenced was appropriate
[2019-06-01] MEDS: HYDRALAZINE HCL 50 MG TABLET PO SCH ×2 (13:04→21:23)
[2019-06-01] MEDS: GABAPENTIN 400 MG CAPSULE PO SCH ×2 (13:05→21:24)
[2019-06-01] MEDS: MONTELUKAST SODIUM 10 MG TABLET PO SCH (21:24)
[2019-06-02] MEDS: GABAPENTIN 400 MG CAPSULE PO SCH ×3 (06:27→23:18)
[2019-06-02] MEDS: HYDRALAZINE HCL 50 MG TABLET PO SCH ×3 (06:27→23:18)
[2019-06-02] MEDS: ENOXAPARIN SODIUM INJ 80 MG/0.8 ML DISP.SYRIN SUBCUT SCH ×2 (06:27→17:54)
[2019-06-02] MEDS: TRAMADOL HCL 50 MG TABLET PO PRN ×2 (06:28→19:34)
[2019-06-02 06:39] LABS: HEMATOCRIT 28.4 % (36.0-47.0); HEMOGLOBIN 9.5 g/dL (12.0-15.5); MEAN CORPUSCULAR HEMOGLOBIN 30.4 pg (27.0-33.4); MEAN CORPUSCULAR HGB CONC 33.4 g/dL (32.0-36.0); MEAN CORPUSCULAR VOLUME 91 fl (80-97); PLATELET COUNT 125 10^3/uL (150-450); RED BLOOD COUNT 3.12 10^6/uL (3.72-5.28); RED CELL DISTRIBUTION WIDTH 14.3 % (11.5-14.0); WHITE BLOOD COUNT 8.4 10^3/uL (4.0-10.5)
[2019-06-02 06:54] LABS: ANION GAP 7 (5-19); BLOOD UREA NITROGEN 48 mg/dL (7-20); CALCIUM 8.4 mg/dL (8.4-10.2); CARBON DIOXIDE 23 mmol/L (22-30); CHLORIDE 107 mmol/L (98-107); CHOLESTEROL 135.42 mg/dL (0-200); GLUCOSE 80 mg/dL (75-110); POTASSIUM 4.3 mmol/L (3.6-5.0); TRIGLYCERIDES 119 mg/dL (<150)
[2019-06-02 07:04] LABS: DIRECT LDL 80 mg/dL (<100)
[2019-06-02] MEDS: INSULIN LISPRO 100 UNIT/ML 3 ML VIAL SUBCUT SCH ×4 (07:51→22:27)
[2019-06-02] MEDS: IPRATROPIUM/ALBUTEROL 0.5-2.5 MG/3 ML AMPUL NEB SCH ×2 (08:21→17:44)
[2019-06-02] MEDS: CEFTRIAXONE SODIUM 1,000 MG in DEXTROSE 5%-WATER 50 ML IV SCH (09:17)
[2019-06-02] MEDS: FLUTICASONE NASAL SPRAY 50 MCG/SPRY 120 SPRAY/16 GM NASL SCH ×2 (09:27→23:19)
[2019-06-02] MEDS: MAGNESIUM OXIDE 400 MG TABLET PO SCH (09:28)
[2019-06-02] MEDS: CARVEDILOL 12.5 MG TABLET PO SCH ×2 (09:28→23:18)
[2019-06-02] MEDS: ROPINIROLE HCL 1 MG TABLET PO SCH ×2 (09:29→23:20)
[2019-06-02] MEDS: ASPIRIN 81 MG TABLET, CHEWABLE PO SCH (09:29)
[2019-06-02] MEDS: FAMOTIDINE 20 MG TABLET PO SCH (09:29)
[2019-06-02] MEDS: ASCORBIC ACID 500 MG TABLET PO SCH (09:29)
[2019-06-02] MEDS: CLONIDINE HCL 0.2 MG TABLET PO SCH ×2 (09:29→23:18)
[2019-06-02] MEDS: HYDROCORTISONE 10 MG TABLET PO SCH (09:29)
[2019-06-02] MEDS: LOSARTAN POTASSIUM 50 MG TABLET PO SCH (09:29)
[2019-06-02] MEDS: FOLIC ACID 1 MG TABLET PO SCH (09:29)
[2019-06-02] MEDS: FEBUXOSTAT 40 MG TABLET PO SCH (09:29)
[2019-06-02] MEDS: DOCUSATE SODIUM 100 MG CAPSULE PO SCH (09:29)
[2019-06-02 11:24] LABS: PATH REVIEW PATHOLOGIST REVIEWED
[2019-06-02 17:04] LABS: APPEARANCE,URINE TURBID; BILIRUBIN,URINE NEGATIVE (NEGATIVE); COLOR,URINE AMBER; GLUCOSE, URINE NEGATIVE (NEGATIVE); KETONES,URINE NEGATIVE (NEGATIVE); LEUKOCYTE ESTERASE,URINE LARGE (NEGATIVE); NITRITE,URINE NEGATIVE (NEGATIVE); PROTEIN,URINE 30 mg/dL (NEGATIVE); URINE SPECIFIC GRAVITY 1.013; UROBILINOGEN,URINE NEGATIVE mg/dL (<2.0)
--- NOTE | 2019-06-02 17:39 | XCELERA REPORT ---
[address] [address] Transthoracic Echocardiogram Report Name: GUY VICTORIA Age: 78 yrs Gender: Female : 1940 Patient Status: Inpatient Patient Location: [facility]^A Study Date: 06/02/2019 10:12 AM Height: 68 in Weight: 145 lb BSA: 1.8 m2 Procedure: A two-dimensional transthoracic echocardiogram with color flow and Doppler was performed. The study was technically difficult with many images being suboptimal in quality. Reason For Study: elevated troponin History: elevated troponin. Ordering Physician: LINDSAY MUNGUIA Performed By: Caitlin Caruso Interpretation Summary The left ventricle is normal in size. There is normal left ventricular wall thickness. The left ventricular ejection fraction is within normal limits. LV EF is 60% Doppler measurements suggest impaired left ventricular relaxation, which is associated with grade I/IV or mild diastolic dysfunction The left ventricular wall motion is normal. There is no thrombus. Probably no ASD,VSD ,or PFO seen. The right ventricle is grossly normal size. The right ventricle is not well visualized secondary to technical limitations The right atrium is normal. The left atrial size is normal. There is moderate to severe mitral annular calcification. There is mild mitral stenosis There is a mild amount of mitral regurgitation There is no aortic valve stenosis There is no LVOT obstruction. No aortic regurgitation is present. There is no tricuspid stenosis. There is a moderate amount of tricuspid regurgitation There is mild pulmonary hypertension by echo RVSP is 40 to 45 mm of Hg , with RA mean of 5 to 10. There is no pulmonic valvular stenosis. There is a trace amount of pulmonic regurgitation The inferior vena cava appeared normal and decreased > 50% with respiration (RAP 5-10 mmHg) There is no pericardial effusion. MMode/2D Measurements & Calculations RVDd: 3.2 cm LVIDd: 5.0 cm FS: 32.3 % Ao root diam: 2.9 cm IVSd: 0.91 cm LVIDs: 3.4 cm EDV(Teich): 117.9 ml Ao root area: 6.5 cm2 LVPWd: 1.3 cm ESV(Teich): 46.7 ml EF(Teich): 60.4 % Doppler Measurements & Calculations MV E max romana: MV dec slope: Ao V2 max: LV V1 max P.7 cm/sec 386.1 cm/sec2 170.7 cm/sec 8.0 mmHg MV A max romana: MV dec time: Ao max PG: LV V1 max: 129.6 cm/sec 0.31 sec 11.7 mmHg 141.8 cm/sec MV E/A: 0.93 PA V2 max: PI max romana: TR max romana: 131.3 cm/sec 179.5 cm/sec 295.9 cm/sec PA max P.9 mmHg PI max P.9 mmHg TR max PG: PI dec slope: 35.1 mmHg 118.0 cm/sec2 Left Ventricle The left ventricle is normal in size. There is normal left ventricular wall thickness. The left ventricular ejection fraction is within normal limits. LV EF is 60%. Doppler measurements suggest impaired left ventricular relaxation, which is associated with grade I/IV or mild diastolic dysfunction. The left ventricular wall motion is normal. There is no thrombus. Probably no ASD,VSD ,or PFO seen. Right Ventricle The right ventricle is grossly normal size. The right ventricle is not well visualized secondary to technical limitations. Atria The right atrium is normal. The left atrial size is normal. Mitral Valve There is moderate to severe mitral annular calcification. There is no evidence of mitral valve prolapse. There is mild mitral stenosis. There is a mild amount of mitral regurgitation. Aortic Valve There is no aortic valvular vegetation. There is no aortic valve stenosis. There is no LVOT obstruction. No aortic regurgitation is present. Tricuspid Valve There is no tricuspid stenosis. There is a moderate amount of tricuspid regurgitation. There is mild pulmonary hypertension by echo. RVSP is 40 to 45 mm of Hg , with RA mean of 5 to 10. Pulmonic Valve There is no pulmonic valvular stenosis. There is a trace amount of pulmonic regurgitation. Great Vessels The aortic root is not well visualized but is probably normal size. The inferior vena cava appeared normal and decreased > 50% with respiration (RAP 5-10 mmHg). Effusions There is no pericardial effusion. : LINDSAY MUNGUIA > Roselyn Montalvo
[2019-06-02] MEDS: NORMAL SALINE 1000 ML 1,000 ML IV PRN (17:54)
--- NOTE | 2019-06-02 18:18 | PDOC PROGRESS REPORT ---
Subjective Progress Note for:: 06/02/19 Subjective:: GUY VICTORIA is a 78 year old female with a past medical history significant for CHF, CKD 3, hypertension, DM 2, RA, polymyositis, GERD, and ISABEL who was admitted 05/31/2019 for sepsis, UTI, and elevated troponin. Patient was seen on morning rounds. She is found resting in bed comfortably on room air. She is awake, alert and oriented x4. She reports her normal arthritic pain. She also reports intermittent dysurea. She denies fever, chills, chest pain, palpitations, dyspnea, cough, abdominal pain, nausea vomiting and diarrhea. She has no other questions or concerns at this time. No concerns per nursing. Reason For Visit: SEPSIS,UTI,ACUTE ENCEPHALOPATHY Physical Exam Vital Signs: Temp Pulse Resp BP Pulse Ox 97.7 F 50 L 13 132/62 H 94 06/02/19 16:20 06/02/19 16:20 06/02/19 16:20 06/02/19 16:20 06/02/19 16:20 Intake & Output 06/01/19 06/02/19 06/03/19 06:59 06:59 06:59 Intake Total 1902 3140 1450 Balance 1902 3140 1450 Weight 65.8 kg 54.1 kg General appearance: PRESENT: no acute distress, cooperative, well-developed, well-nourished Head exam: PRESENT: atraumatic, normocephalic Eye exam: PRESENT: conjunctiva pink, EOMI, PERRLA. ABSENT: scleral icterus Ear exam: PRESENT: normal external ear exam Mouth exam: PRESENT: moist, tongue midline Neck exam: ABSENT: carotid bruit, JVD, lymphadenopathy, thyromegaly Respiratory exam: PRESENT: clear to auscultation michael, symmetrical, unlabored, other - room air. ABSENT: rales, rhonchi, wheezes Cardiovascular exam: PRESENT: RRR. ABSENT: diastolic murmur, rubs, systolic murmur Pulses: PRESENT: normal dorsalis pedis pul Vascular exam: PRESENT: normal capillary refill GI/Abdominal exam: PRESENT: normal bowel sounds, soft. ABSENT: distended, guarding, mass, organolmegaly, rebound, tenderness Rectal exam: PRESENT: deferred Extremities exam: PRESENT: full ROM. ABSENT: calf tenderness, clubbing, pedal edema Neurological exam: PRESENT: alert, awake, oriented to person, oriented to place, oriented to time, oriented to situation, CN II-XII grossly intact. ABSENT: motor sensory deficit Psychiatric exam: PRESENT: appropriate affect, normal mood. ABSENT: homicidal ideation, suicidal ideation Skin exam: PRESENT: dry, intact, warm. ABSENT: cyanosis, rash Results Laboratory Results: 06/02/19 05:21 06/02/19 05:21 06/02/19 06/02/19 06/02/19 05:21 05:21 15:15 WBC 8.4 RBC 3.12 L Hgb 9.5 L Hct 28.4 L MCV 91 MCH 30.4 MCHC 33.4 RDW 14.3 H Plt Count 125 L Sodium 136.7 L Potassium 4.3 Chloride 107 Carbon Dioxide 23 Anion Gap 7 BUN 48 H Creatinine 1.46 H Est GFR ( Amer) 42 L Est GFR (Non-Af Amer) 35 L Glucose 80 Calcium 8.4 Triglycerides 119 Cholesterol 135.42 LDL Cholesterol Direct 80 VLDL Cholesterol 24.0 HDL Cholesterol 39 L Urine Color CEFERINO Urine Appearance TURBID Urine pH 5.0 Ur Specific [place] 1.013 Urine Protein 30 H Urine Glucose (UA) NEGATIVE Urine Ketones NEGATIVE Urine Blood SMALL H Urine Nitrite NEGATIVE Ur Leukocyte Esterase LARGE H Urine WBC (Auto) >182 Urine RBC (Auto) 3 05/31/19 11:25 Catheterized Urine Urine Culture - Final Escherichia Coli 05/31/19 05/31/19 05/31/19 09:35 13:23 13:23 Troponin I 0.149 4.190 NT-Pro-B Natriuret Pep 4340 H 05/31/19 06/01/19 19:30 08:01 Troponin I 5.670 3.990 NT-Pro-B Natriuret Pep Impressions: Chest X-Ray 05/31/19 10:25 IMPRESSION: ELEVATION OF THE RIGHT HEMIDIAPHRAGM WITH APPARENT CHRONIC INTERSTITIAL CHANGES. CHRONIC FINDINGS IN THE SHOULDERS. BASED ON PRIOR X-RAY REPORT, THESE FINDINGS PRESUMABLY ARE CHRONIC. NO APPARENT ACUTE FINDINGS. Assessment and Plan - Diagnosis (1) Sepsis Qualifiers: Sepsis type: Escherichia coli Severe sepsis acute organ dysfunction type: encephalopathy Severe sepsis shock status: without septic shock Is this a current diagnosis for this admission?: Yes Plan: Resolved; Patient has been afebrile overnight, leukocytosis and lactic acidosis is resolved. Vital signs now stable and patient is awake and oriented x4. Patient presented with sepsis due to UTI, present on admission, evidenced by acute encephalopathy, fever, tachycardia, tachypnea, hypotension, leukopenia, elevated lactic acidosis, and urinalysis positive for UTI. Patient has already been provided 1 L normal saline bolus and IV Rocephin. Follow-up lactic acid is normal. Patient is admitted to the medical floor and continuous cardiac telemetry. We will continue IV fluids; monitor closely for evidence of fluid volume overload given patient's history of diastolic heart failure. Blood and urine cultures are pending, will adjust antibiotics as cultures result. (2) UTI (urinary tract infection) Qualifiers: Urinary tract infection type: site unspecified Hematuria presence: with hematuria Qualified Code(s): N39.0 - Urinary tract infection, site not specified; R31.9 - Hematuria, unspecified Is this a current diagnosis for this admission?: Yes Plan: Patient presents with sepsis (fever, tachycardia, tachypnea, hypotension, leukopenia, Elevated lactic acid, and urinalysis suggesting UTI). Blood culture (1 bottle) 2 strains gram-positive cocci. Urine cultures shows pansensitive E. coli. Repeat blood cultures negative Patient has been empirically started on IV Rocephin. IV Rocephin is discontinued and Zosyn is started for coverage of gram-positive cocci. Fortunately her E. coli is sensitive. Will further adjust as cultures result. (3) Altered mental status Qualifiers: Altered mental status type: unspecified Qualified Code(s): R41.82 - Altered mental status, unspecified Is this a current diagnosis for this admission?: Yes Plan: Resolved; now alert and oriented x4. Acute metabolic encephalopathy secondary to sepsis/UTI. Management of sepsis as described elsewhere Cultures and antibiotics described elsewhere. Fall and aspiration precautions. Q2 turns. Supportive care. (4) Type 2 diabetes mellitus Qualifiers: Diabetes mellitus complication detail: with polyneuropathy Is this a current diagnosis for this admission?: Yes Plan: Accu-Cheks before meals and at bedtime with Humalog for sliding scale coverage. Registered dietitian is consulted. Hypoglycemia protocol. (5) CKD (chronic kidney disease), stage III Is this a current diagnosis for this admission?: Yes Plan: Patient's family member endorses history of CKD 3. On admission she is found to have a creatinine of 1.50 and BUN of 52; EGFR 34. Creatinine and EGFR are at baseline. BUN is elevated from prior labs (typically Mid 30s) Continue gentle IV fluids. Avoid nephrotoxic medications as able. Daily chemistries. (6) Anemia in chronic kidney disease Qualifiers: Chronic kidney disease stage: stage 3 (moderate) Qualified Code(s): N18.3 - Chronic kidney disease, stage 3 (moderate); D63.1 - Anemia in chronic kidney disease; D63.1 - Anemia in chronic kidney disease Is this a current diagnosis for this admission?: Yes Plan: Hemoglobin of 9.5; overall stable, down slightly secondary to hemodilution No evidence of active bleeding at this time. Daily CBC (7) CHF (congestive heart failure) Qualifiers: Heart failure chronicity: unspecified Is this a current diagnosis for this admission?: Yes Plan: Per OM records patient has a history of diastolic CHF. Echocardiogram from 12/16 demonstrated normal LVEF with mild to moderate diastolic dysfunction and mild pulmonary hypertension. Have resumed the patient's home medication regiment of Carvedilol, clonidine, hydralazine, and losartan. Monitor closely for development of fluid volume overload while providing IV fluids. Daily weights, strict I&O's (8) Hyperkalemia Is this a current diagnosis for this admission?: Yes Plan: Resolved. Unclear etiology; possibly related to CKD and dehydration. Potassium on admission is 5.8-4.6. EKG negative for peaked T waves. Reviewed by Dr. Bond per ED provider. We will continue monitor with daily chemistries. (9) Elevated troponin Is this a current diagnosis for this admission?: Yes Plan: Demand ischemia secondary to sepsis. Patient was admitted with a troponin of 0.149, peaked at 3.670, now trending down. Most recent 3.990. Patient tells me this morning that she is chest pain-free. Echocardiogram reveals LVEF 60% with mild diastolic function,Mild pulmonary hypertension Full dose Lovenox is discontinued continue subcu heparin for DVT prophylaxis. Continue daily aspirin therapy (10) Bacteremia Is this a current diagnosis for this admission?: Yes Plan: 1 bottle of 1st blood culture set positive for two strains of gram positive cocci. Repeat set is negative. Change antibiotics to IV Zosyn for better gram-positive coverage. Fortunately the patient's E. coli UTI is sensitive. Will adjust antibiotics further as cultures result. - Time Time Spent with patient: 15-24 minutes Medications reviewed and adjusted accordingly: Yes Anticipated discharge: SNF - Long-term care resident Gemma Leger Within: within 48 hours - Once blood cultures finalized to determine length of antibiotic therapy
[2019-06-02] MEDS: PIPERACILLIN SODIUM/TAZOBACTAM 3.375 GM in NORMAL SALINE 100 ML IV SCH ×2 (19:35→23:18)
[2019-06-02] MEDS: HEPARIN SOD (PORCINE) 5,000 UNIT/ML 1 ML VIAL SUBCUT SCH (23:09)
[2019-06-02] MEDS: MONTELUKAST SODIUM 10 MG TABLET PO SCH (23:18)
[2019-06-03] MEDS: IPRATROPIUM/ALBUTEROL 0.5-2.5 MG/3 ML AMPUL NEB SCH ×3 (00:04→16:36)
[2019-06-03] MEDS: GABAPENTIN 400 MG CAPSULE PO SCH ×3 (06:01→23:48)
[2019-06-03] MEDS: HYDRALAZINE HCL 50 MG TABLET PO SCH ×3 (06:01→23:47)
[2019-06-03] MEDS: PIPERACILLIN SODIUM/TAZOBACTAM 3.375 GM in NORMAL SALINE 100 ML IV SCH (06:01)
[2019-06-03] MEDS: TRAMADOL HCL 50 MG TABLET PO PRN ×2 (06:01→20:13)
[2019-06-03] MEDS: HEPARIN SOD (PORCINE) 5,000 UNIT/ML 1 ML VIAL SUBCUT SCH ×3 (06:12→23:49)
[2019-06-03 06:56] LABS: HEMATOCRIT 30.5 % (36.0-47.0); HEMOGLOBIN 10.1 g/dL (12.0-15.5); MEAN CORPUSCULAR HEMOGLOBIN 30.1 pg (27.0-33.4); MEAN CORPUSCULAR HGB CONC 33.1 g/dL (32.0-36.0); MEAN CORPUSCULAR VOLUME 91 fl (80-97); PLATELET COUNT 129 10^3/uL (150-450); RED BLOOD COUNT 3.35 10^6/uL (3.72-5.28); RED CELL DISTRIBUTION WIDTH 14.1 % (11.5-14.0); WHITE BLOOD COUNT 6.5 10^3/uL (4.0-10.5)
[2019-06-03 07:15] LABS: ANION GAP 8 (5-19); BLOOD UREA NITROGEN 39 mg/dL (7-20); CARBON DIOXIDE 21 mmol/L (22-30); CHLORIDE 108 mmol/L (98-107); GLUCOSE 95 mg/dL (75-110); POTASSIUM 4.3 mmol/L (3.6-5.0)
[2019-06-03] MEDS: INSULIN LISPRO 100 UNIT/ML 3 ML VIAL SUBCUT SCH ×4 (07:21→23:49)
--- NOTE | 2019-06-03 08:41 | Progress Note Acknowledgement ---
Progress Note Acknowledgement Progess Note Acknowledgement: I, the undersigned member of the medical staff with appropriate privileges and with supervisory authority over [Tomás Mcnulty], a dependent practice allied health professional, acknowledge that I have reviewed the progress notes entered on this patient, and in my professional judgment believe that the assessment made and/or any care evidenced was appropriate
[2019-06-03] MEDS ORDERED: AMPICILLIN SOD INJ 2 GM VIAL IM SCH (08:45)
--- NOTE | 2019-06-03 08:45 | PDOC PROGRESS REPORT ---
Subjective Progress Note for:: 06/03/19 Subjective:: June 03, 2019-no complaints this a.m. Reason For Visit: SEPSIS,UTI,ACUTE ENCEPHALOPATHY Physical Exam Vital Signs: Temp Pulse Resp BP Pulse Ox 98.4 F 59 L 17 170/86 H 94 06/03/19 07:52 06/03/19 07:52 06/03/19 07:52 06/03/19 07:52 06/03/19 07:52 Intake & Output 06/02/19 06/03/19 06/04/19 06:59 06:59 06:59 Intake Total 3140 1920 100 Balance 3140 1920 100 Weight 54.1 kg 54.1 kg General appearance: PRESENT: no acute distress, well-developed, well-nourished Neck exam: ABSENT: carotid bruit, JVD, lymphadenopathy, thyromegaly Respiratory exam: PRESENT: clear to auscultation michael. ABSENT: rales, rhonchi, wheezes Cardiovascular exam: PRESENT: RRR. ABSENT: diastolic murmur, rubs, systolic murmur Pulses: PRESENT: normal dorsalis pedis pul Vascular exam: PRESENT: normal capillary refill GI/Abdominal exam: PRESENT: normal bowel sounds, soft. ABSENT: distended, guarding, mass, organolmegaly, rebound, tenderness Extremities exam: PRESENT: full ROM. ABSENT: calf tenderness, clubbing, pedal edema Neurological exam: PRESENT: alert, awake, oriented to person, oriented to place, oriented to time, oriented to situation, CN II-XII grossly intact. ABSENT: motor sensory deficit Psychiatric exam: PRESENT: appropriate affect, normal mood. ABSENT: homicidal ideation, suicidal ideation Results Laboratory Results: 06/03/19 06:37 06/03/19 06:37 06/02/19 06/03/19 06/03/19 15:15 06:37 06:37 WBC 6.5 RBC 3.35 L Hgb 10.1 L Hct 30.5 L MCV 91 MCH 30.1 MCHC 33.1 RDW 14.1 H Plt Count 129 L Sodium 137.1 Potassium 4.3 Chloride 108 H Carbon Dioxide 21 L Anion Gap 8 BUN 39 H Creatinine 1.29 H Est GFR ( Amer) 48 L Est GFR (Non-Af Amer) 40 L Glucose 95 Calcium 9.0 Urine Color CEFERINO Urine Appearance TURBID Urine pH 5.0 Ur Specific [place] 1.013 Urine Protein 30 H Urine Glucose (UA) NEGATIVE Urine Ketones NEGATIVE Urine Blood SMALL H Urine Nitrite NEGATIVE Ur Leukocyte Esterase LARGE H Urine WBC (Auto) >182 Urine RBC (Auto) 3 05/31/19 11:25 Catheterized Urine Urine Culture - Final Escherichia Coli 05/31/19 05/31/19 05/31/19 09:35 13:23 13:23 Troponin I 0.149 4.190 NT-Pro-B Natriuret Pep 4340 H 05/31/19 06/01/19 06/03/19 19:30 08:01 06:37 Troponin I 5.670 3.990 2.060 NT-Pro-B Natriuret Pep Impressions: Chest X-Ray 05/31/19 10:25 IMPRESSION: ELEVATION OF THE RIGHT HEMIDIAPHRAGM WITH APPARENT CHRONIC INTERSTITIAL CHANGES. CHRONIC FINDINGS IN THE SHOULDERS. BASED ON PRIOR X-RAY REPORT, THESE FINDINGS PRESUMABLY ARE CHRONIC. NO APPARENT ACUTE FINDINGS. Assessment and Plan - Diagnosis (1) Sepsis Qualifiers: Sepsis type: Escherichia coli Severe sepsis acute organ dysfunction type: encephalopathy Severe sepsis shock status: without septic shock Is this a current diagnosis for this admission?: Yes Plan: Resolved; Patient has been afebrile overnight, leukocytosis and lactic acidosis is resolved. Vital signs now stable and patient is awake and oriented x4. Patient presented with sepsis due to UTI, present on admission, evidenced by acute encephalopathy, fever, tachycardia, tachypnea, hypotension, leukopenia, elevated lactic acidosis, and urinalysis positive for UTI. Patient has already been provided 1 L normal saline bolus and IV Rocephin. Follow-up lactic acid is normal. Patient is admitted to the medical floor and continuous cardiac telemetry. We will continue IV fluids; monitor closely for evidence of fluid volume overload given patient's history of diastolic heart failure. Blood and urine cultures are pending, will adjust antibiotics as cultures result. June 03, 2019-sepsis resolved. Patient does have Escherichia coli in her urine and Enterococcus faecalis in her blood. Discussed with pharmacy this a.m. we will switch from Rocephin and Zosyn to ampicillin which has best coverage. Will await ID referral for length of coverage. (2) Bacteremia Is this a current diagnosis for this admission?: Yes Plan: 1 bottle of 1st blood culture set positive for two strains of gram positive cocci. Repeat set is negative. Change antibiotics to IV Zosyn for better gram-positive coverage. Fortunately the patient's E. coli UTI is sensitive. Will adjust antibiotics further as cultures result. June 03, 2019-DC IV Zosyn and Rocephin. Place patient on ampicillin 2 g IV 3 times daily as this has better coverage for all known organisms. Will wait for ID recognition for length of treatment. (3) CKD (chronic kidney disease), stage III Is this a current diagnosis for this admission?: Yes Plan: Patient's family member endorses history of CKD 3. On admission she is found to have a creatinine of 1.50 and BUN of 52; EGFR 34. Creatinine and EGFR are at baseline. BUN is elevated from prior labs (typically Mid 30s) Continue gentle IV fluids. Avoid nephrotoxic medications as able. Daily chemistries. June 03, 2019-stable. Continue to avoid nephrotoxic medications. Daily chemistries. (4) Anemia in chronic kidney disease Qualifiers: Chronic kidney disease stage: stage 3 (moderate) Qualified Code(s): N18.3 - Chronic kidney disease, stage 3 (moderate); D63.1 - Anemia in chronic kidney disease; D63.1 - Anemia in chronic kidney disease Is this a current diagnosis for this admission?: Yes Plan: Hemoglobin of 9.5; overall stable, down slightly secondary to hemodilution No evidence of active bleeding at this time. Daily CBC June 03, 2019-chronic, stable. (5) Elevated troponin Is this a current diagnosis for this admission?: Yes Plan: Demand ischemia secondary to sepsis. Patient was admitted with a troponin of 0.149, peaked at 3.670, now trending down. Most recent 3.990. Patient tells me this morning that she is chest pain-free. Echocardiogram reveals LVEF 60% with mild diastolic function,Mild pulmonary hypertension Full dose Lovenox is discontinued continue subcu heparin for DVT prophylaxis. Continue daily aspirin therapy June 03 1219-continue to trend down. Most like secondary to chronic renal failure. Patient did have echocardiogram showing a ejection fraction 60%. Continue to follow. - Time Time Spent with patient: 15-24 minutes - Inpatient Certification Based on my medical assessment, after consideration of the patient's comorbidities, presenting symptoms, or acuity I expect that the services needed warrant INPATIENT care.: Yes I certify that my determination is in accordance with my understanding of Medicare's requirements for reasonable and necessary INPATIENT services [42 CFR 412.3e].: Yes Medical Necessity: Other - IV antibiotics
[2019-06-03] MEDS: CARVEDILOL 12.5 MG TABLET PO SCH ×2 (09:38→23:48)
[2019-06-03] MEDS: HYDROCORTISONE 10 MG TABLET PO SCH (09:39)
[2019-06-03] MEDS: ASPIRIN 81 MG TABLET, CHEWABLE PO SCH (09:39)
[2019-06-03] MEDS: CLONIDINE HCL 0.2 MG TABLET PO SCH ×2 (09:39→23:48)
[2019-06-03] MEDS: FEBUXOSTAT 40 MG TABLET PO SCH (09:39)
[2019-06-03] MEDS: MAGNESIUM OXIDE 400 MG TABLET PO SCH (09:39)
[2019-06-03] MEDS: DOCUSATE SODIUM 100 MG CAPSULE PO SCH (09:39)
[2019-06-03] MEDS: ROPINIROLE HCL 1 MG TABLET PO SCH ×2 (09:39→23:47)
[2019-06-03] MEDS: FOLIC ACID 1 MG TABLET PO SCH (09:39)
[2019-06-03] MEDS: LOSARTAN POTASSIUM 50 MG TABLET PO SCH (09:39)
[2019-06-03] MEDS: FAMOTIDINE 20 MG TABLET PO SCH (09:39)
[2019-06-03] MEDS: ASCORBIC ACID 500 MG TABLET PO SCH (09:39)
[2019-06-03] MEDS: FLUTICASONE NASAL SPRAY 50 MCG/SPRY 120 SPRAY/16 GM NASL SCH ×2 (09:40→23:48)
[2019-06-03] MEDS: AMPICILLIN SODIUM 2 GM in NORMAL SALINE 100 ML IV SCH ×2 (12:11→18:09)
[2019-06-03] MEDS: NORMAL SALINE 1000 ML 1,000 ML IV PRN (12:12)
[2019-06-03] MEDS ORDERED: BISACODYL 10 MG SUPP.RECT PR ONE (18:00)
[2019-06-03] MEDS: HYDRALAZINE HCL INJ/PF 20 MG/1 ML SDV IV PRN (20:13)
[2019-06-03] MEDS: MONTELUKAST SODIUM 10 MG TABLET PO SCH (23:48)
[2019-06-04] MEDS: IPRATROPIUM/ALBUTEROL 0.5-2.5 MG/3 ML AMPUL NEB SCH ×3 (00:18→16:13)
[2019-06-04] MEDS: HYDRALAZINE HCL INJ/PF 20 MG/1 ML SDV IV PRN ×2 (03:56→20:26)
[2019-06-04] MEDS: AMPICILLIN SODIUM 2 GM in NORMAL SALINE 100 ML IV SCH ×3 (04:01→17:35)
[2019-06-04] MEDS: HYDRALAZINE HCL 50 MG TABLET PO SCH ×3 (05:34→21:37)
[2019-06-04] MEDS: TRAMADOL HCL 50 MG TABLET PO PRN ×2 (05:35→21:33)
[2019-06-04] MEDS: GABAPENTIN 400 MG CAPSULE PO SCH ×3 (05:35→21:33)
[2019-06-04] MEDS: HEPARIN SOD (PORCINE) 5,000 UNIT/ML 1 ML VIAL SUBCUT SCH ×4 (05:35→21:57)
[2019-06-04 06:38] LABS: HEMATOCRIT 31.9 % (36.0-47.0); HEMOGLOBIN 10.5 g/dL (12.0-15.5); MEAN CORPUSCULAR HEMOGLOBIN 29.9 pg (27.0-33.4); MEAN CORPUSCULAR VOLUME 90 fl (80-97); PLATELET COUNT 156 10^3/uL (150-450); RED BLOOD COUNT 3.53 10^6/uL (3.72-5.28); RED CELL DISTRIBUTION WIDTH 14.1 % (11.5-14.0); WHITE BLOOD COUNT 6.3 10^3/uL (4.0-10.5)
[2019-06-04 06:58] LABS: ANION GAP 9 (5-19); BLOOD UREA NITROGEN 29 mg/dL (7-20); CALCIUM 9.3 mg/dL (8.4-10.2); CARBON DIOXIDE 22 mmol/L (22-30); CHLORIDE 110 mmol/L (98-107); GLUCOSE 98 mg/dL (75-110); POTASSIUM 4.3 mmol/L (3.6-5.0)
[2019-06-04] MEDS: INSULIN LISPRO 100 UNIT/ML 3 ML VIAL SUBCUT SCH ×4 (08:29→21:57)
--- NOTE | 2019-06-04 09:36 | PDOC PROGRESS REPORT ---
Subjective Progress Note for:: 06/04/19 Subjective:: June 03, 2019-no complaints this a.m. June 04, 2019-no complaints at this time. Reason For Visit: SEPSIS,UTI,ACUTE ENCEPHALOPATHY Physical Exam Vital Signs: Temp Pulse Resp BP Pulse Ox 98.3 F 77 16 194/78 H 94 06/04/19 07:42 06/04/19 07:42 06/04/19 07:42 06/04/19 07:42 06/04/19 07:42 Intake & Output 06/03/19 06/04/19 06/05/19 06:59 06:59 06:59 Intake Total 1920 2140 Output Total 1001 Balance 1920 1139 Weight 54.1 kg 57.7 kg Results Laboratory Results: 06/04/19 05:47 06/04/19 05:47 06/04/19 06/04/19 05:47 05:47 WBC 6.3 RBC 3.53 L Hgb 10.5 L Hct 31.9 L MCV 90 MCH 29.9 MCHC 33.0 RDW 14.1 H Plt Count 156 Sodium 141.0 Potassium 4.3 Chloride 110 H Carbon Dioxide 22 Anion Gap 9 BUN 29 H Creatinine 1.06 Est GFR ( Amer) > 60 Est GFR (Non-Af Amer) 50 L Glucose 98 Calcium 9.3 05/31/19 12:04 Blood Blood Culture - Final Enterococcus Faecalis(Group D) 05/31/19 05/31/19 05/31/19 09:35 13:23 13:23 Troponin I 0.149 4.190 NT-Pro-B Natriuret Pep 4340 H 05/31/19 06/01/19 06/03/19 19:30 08:01 06:37 Troponin I 5.670 3.990 2.060 NT-Pro-B Natriuret Pep Impressions: Chest X-Ray 05/31/19 10:25 IMPRESSION: ELEVATION OF THE RIGHT HEMIDIAPHRAGM WITH APPARENT CHRONIC INT ERSTITIAL CHANGES. CHRONIC FINDINGS IN THE SHOULDERS. BASED ON PRIOR X-RAY REPORT, THESE FINDINGS PRESUMABLY ARE CHRONIC. NO APPARENT ACUTE FINDINGS. Assessment and Plan - Diagnosis (1) Sepsis Qualifiers: Sepsis type: Escherichia coli Severe sepsis acute organ dysfunction type: encephalopathy Severe sepsis shock status: without septic shock Is this a current diagnosis for this admission?: Yes Plan: Resolved; Patient has been afebrile overnight, leukocytosis and lactic acidosis is resolved. Vital signs now stable and patient is awake and oriented x4. Patient presented with sepsis due to UTI, present on admission, evidenced by acute encephalopathy, fever, tachycardia, tachypnea, hypotension, leukopenia, elevated lactic acidosis, and urinalysis positive for UTI. Patient has already been provided 1 L normal saline bolus and IV Rocephin. Follow-up lactic acid is normal. Patient is admitted to the medical floor and continuous cardiac telemetry. We will continue IV fluids; monitor closely for evidence of fluid volume overload given patient's history of diastolic heart failure. Blood and urine cultures are pending, will adjust antibiotics as cultures result. June 03, 2019-sepsis resolved. Patient does have Escherichia coli in her urine and Enterococcus faecalis in her blood. Discussed with pharmacy this a.m. we will switch from Rocephin and Zosyn to ampicillin which has best coverage. Will await ID referral for length of coverage. June 04, 2019-sepsis has resolved. Blood culture shows enterococcus facialis susceptible to ampicillin. I discussed this with pharmacy and ampicillin will cover both the enterococcus facialis in her blood and E. coli in her urine. Patient remains on 2 g of ampicillin 3 times daily at this time. (2) Bacteremia Is this a current diagnosis for this admission?: Yes Plan: 1 bottle of 1st blood culture set positive for two strains of gram positive cocci. Repeat set is negative. Change antibiotics to IV Zosyn for better gram-positive coverage. Fortunately the patient's E. coli UTI is sensitive. Will adjust antibiotics further as cultures result. June 03, 2019-DC IV Zosyn and Rocephin. Place patient on ampicillin 2 g IV 3 times daily as this has better coverage for all known organisms. Will wait for ID recognition for length of treatment. June 04, 2019-continue ampicillin (3) CKD (chronic kidney disease), stage III Is this a current diagnosis for this admission?: Yes Plan: Patient's family member endorses history of CKD 3. On admission she is found to have a creatinine of 1.50 and BUN of 52; EGFR 34. Creatinine and EGFR are at baseline. BUN is elevated from prior labs (typically Mid 30s) Continue gentle IV fluids. Avoid nephrotoxic medications as able. Daily chemistries. June 03, 2019-stable. Continue to avoid nephrotoxic medications. Daily chemistries. June 04, 2019-resolved. Continue to follow daily chemistries. (4) Anemia in chronic kidney disease Qualifiers: Chronic kidney disease stage: stage 3 (moderate) Qualified Code(s): N18.3 - Chronic kidney disease, stage 3 (moderate); D63.1 - Anemia in chronic kidney disease; D63.1 - Anemia in chronic kidney disease Is this a current diagnosis for this admission?: Yes Plan: Hemoglobin of 9.5; overall stable, down slightly secondary to hemodilution No evidence of active bleeding at this time. Daily CBC June 03, 2019-chronic, stable. June 04, 2019-chronic stable. (5) Elevated troponin Is this a current diagnosis for this admission?: Yes - Time Time Spent with patient: 15-24 minutes - Inpatient Certification Based on my medical assessment, after consideration of the patient's comorbidities, presenting symptoms, or acuity I expect that the services needed warrant INPATIENT care.: Yes I certify that my determination is in accordance with my understanding of Medicare's requirements for reasonable and necessary INPATIENT services [42 CFR 412.3e].: Yes Medical Necessity: Other - IV antibiotics
[2019-06-04] MEDS: FEBUXOSTAT 40 MG TABLET PO SCH (09:37)
[2019-06-04] MEDS: MAGNESIUM OXIDE 400 MG TABLET PO SCH (09:37)
[2019-06-04] MEDS: CLONIDINE HCL 0.2 MG TABLET PO SCH ×2 (09:37→21:37)
[2019-06-04] MEDS: DOCUSATE SODIUM 100 MG CAPSULE PO SCH (09:37)
[2019-06-04] MEDS: ASPIRIN 81 MG TABLET, CHEWABLE PO SCH (09:37)
[2019-06-04] MEDS: LOSARTAN POTASSIUM 50 MG TABLET PO SCH (09:38)
[2019-06-04] MEDS: CARVEDILOL 12.5 MG TABLET PO SCH ×2 (09:38→21:37)
[2019-06-04] MEDS: FAMOTIDINE 20 MG TABLET PO SCH (09:38)
[2019-06-04] MEDS: FLUTICASONE NASAL SPRAY 50 MCG/SPRY 120 SPRAY/16 GM NASL SCH ×2 (09:38→21:37)
[2019-06-04] MEDS: ROPINIROLE HCL 1 MG TABLET PO SCH ×2 (09:38→21:34)
[2019-06-04] MEDS: FOLIC ACID 1 MG TABLET PO SCH (09:38)
[2019-06-04] MEDS: HYDROCORTISONE 10 MG TABLET PO SCH (09:38)
[2019-06-04] MEDS: ASCORBIC ACID 500 MG TABLET PO SCH (09:38)
[2019-06-04] MEDS: NORMAL SALINE 1000 ML 1,000 ML IV PRN (09:50)
--- NOTE | 2019-06-04 14:09 | Progress Note ---
Provider Note Provider Note: ID Consult Note Asked to review patient's chart. Pt not seen or examined. Ms. Nice is a 78 year old female care home resident who presented on 05/31/19 to the [facility] ED with c/o SOB and AMS. She has PMH including CHF, CKD, HTN, DM, RA, polymyositis, GERD and ISABEL. She was not able to supply meaningful history apart from reported complaint at her care home that she had intermittent chest pain the day prior. Daughter at bedside reported the patient's presentation was similar to what occurs when the patient is hypoxic or has a UTI. Per initial exam, she was lethargic. She was found to have a fever, hypotension, tachypnea, clear lungs, no wheezes/rales/rhonchi, some pursed lip breathing, no cardiac murmurs, nontender abdomen, no focal deficits, and mild erythema to nontender bilateral lower extremities. Labs revealed leukopenia and lactic acidosis. ABG did not show CO2 retention. CXR did not show any acute findings. U/A showed pyuria. Urine culture grew E coli >100k cfu, susceptible to all agents tested. Empirically the patient was treated with ceftriaxone from 05/31-06/02. Last fever was 101.4 on 05/31 day of admission, none since. Patient appeared clinically improved on 06/01. One blood culture bottle on admission ultimately grew E faecalis. Repeat blood cultures on 06/01 have been negative. Most recent creatinine has improved to 1.06-1.3 range. Impression/Recommendations Complicated UTI due to E coli - Today is day 5 of treatment; would continue treatment to complete a total of 10 days; can switch to PO amoxicillin 500 mg TID to complete treatment Transient bacteremia vs blood culture contamination with E faecalis - repeat blood cultures prior to effective therapy have been negative and the patient clinically improved prior to institution of therapy effective against this organism, which attests to its lack of clinical significance. Do not think that dedicated IV anti-enterococcal therapy or further workup is required. Presentation is not consistent with enterococcal endovascular infection. Cesar Singletary MD [facility] Infectious Diseases pager [phone]
[2019-06-04] MEDS: MONTELUKAST SODIUM 10 MG TABLET PO SCH (21:34)
[2019-06-04] MEDS: METOPROLOL TARTRATE PF/INJ 5 MG/5 ML SDV IV PRN (21:36)
[2019-06-05] MEDS: IPRATROPIUM/ALBUTEROL 0.5-2.5 MG/3 ML AMPUL NEB SCH ×2 (00:16→08:07)
[2019-06-05] MEDS: AMPICILLIN SODIUM 2 GM in NORMAL SALINE 100 ML IV SCH ×2 (01:15→09:05)
[2019-06-05] MEDS: HYDRALAZINE HCL INJ/PF 20 MG/1 ML SDV IV PRN ×2 (01:20→05:57)
[2019-06-05] MEDS: METOPROLOL TARTRATE PF/INJ 5 MG/5 ML SDV IV PRN (03:04)
[2019-06-05 04:43] LABS: HEMATOCRIT 31.1 % (36.0-47.0); HEMOGLOBIN 10.4 g/dL (12.0-15.5); MEAN CORPUSCULAR HEMOGLOBIN 30.1 pg (27.0-33.4); MEAN CORPUSCULAR HGB CONC 33.3 g/dL (32.0-36.0); MEAN CORPUSCULAR VOLUME 90 fl (80-97); PLATELET COUNT 150 10^3/uL (150-450); RED BLOOD COUNT 3.44 10^6/uL (3.72-5.28); RED CELL DISTRIBUTION WIDTH 14.1 % (11.5-14.0); WHITE BLOOD COUNT 6.5 10^3/uL (4.0-10.5)
[2019-06-05 05:03] LABS: BLOOD UREA NITROGEN 24 mg/dL (7-20); CALCIUM 9.1 mg/dL (8.4-10.2); CARBON DIOXIDE 25 mmol/L (22-30); CHLORIDE 110 mmol/L (98-107); GLUCOSE 96 mg/dL (75-110); POTASSIUM 4.1 mmol/L (3.6-5.0)
[2019-06-05 05:14] LABS: ANION GAP 6 (5-19)
[2019-06-05] MEDS: TRAMADOL HCL 50 MG TABLET PO PRN (05:47)
[2019-06-05] MEDS: GABAPENTIN 400 MG CAPSULE PO SCH (05:47)
[2019-06-05] MEDS: HYDRALAZINE HCL 50 MG TABLET PO SCH (05:47)
[2019-06-05] MEDS: HEPARIN SOD (PORCINE) 5,000 UNIT/ML 1 ML VIAL SUBCUT SCH (05:58)
[2019-06-05] MEDS: INSULIN LISPRO 100 UNIT/ML 3 ML VIAL SUBCUT SCH ×2 (08:40→12:22)
--- NOTE | 2019-06-05 08:51 | PDOC DISCHARGE SUMMARY ---
General - Admit/Disc Date/PCP Admission Date/Primary Care Provider: 05/31/19 16:01 KATY POSADAS MD Discharge Date: 06/05/19 - Discharge Diagnosis (1) Sepsis Is this a current diagnosis for this admission?: Yes (2) Bacteremia Is this a current diagnosis for this admission?: Yes (3) CKD (chronic kidney disease), stage III Is this a current diagnosis for this admission?: Yes (4) Anemia in chronic kidney disease Is this a current diagnosis for this admission?: Yes (5) Elevated troponin Is this a current diagnosis for this admission?: Yes - Additional Information Resuscitation Status: Do Not Resuscitate Discharge Diet: As Tolerated Discharge Activity: Activity As Tolerated Prescriptions: Amlodipine Besylate [Norvasc 5 mg Tablet] 5 mg PO DAILY #30 tablet Cefuroxime Axetil [Ceftin 500 mg Tablet] 1 tab PO BID #14 tablet Home Medications: Ascorbic Acid [Vitamin C 500 mg Tablet] 500 mg PO DAILY 12/27/18 Carvedilol [Coreg 12.5 mg Tablet] 25 mg PO Q12 12/27/18 Clonidine HCl [Catapres 0.2 mg Tablet] 0.2 mg PO Q12 12/27/18 Cyanocobalamin (Vitamin B-12) [Vitamin B-12 Inj 1000 Mcg/1 ml Vial] 1,000 mcg IM .12/27/18 Docusate Sodium [Colace 100 mg Capsule] 100 mg PO BID 12/27/18 Febuxostat [Uloric 40 mg Tablet] 40 mg PO DAILY 12/27/18 Fluticasone Propionate [Flonase Nasal Duenweg 50 Mcg/Duenweg 16 gm] 2 sprays NASL Q12 12/27/18 Folic Acid [Folvite 1 mg Tablet] 1 mg PO DAILY 12/27/18 Furosemide [Lasix 20 mg Tablet] 20 mg PO QAM 12/27/18 Gabapentin [Neurontin 400 mg Capsule] 400 mg PO Q8 12/27/18 Guar Gum [Benefiber] 1 each PO DAILYP PRN 12/27/18 Hydralazine HCl [Apresoline 50 mg Tablet] 50 mg PO Q8 12/27/18 Hydrocortisone [Cortef 10 mg Tablet] 10 mg PO DAILY 12/27/18 Hydrocortisone [Hydrocortisone 2.5% Cream 28 gm (Clinic Use)] 1 applic TOP DAILYP PRN 12/27/18 Hydrocortisone/Oatmeal/Aloe/E [Hydrocortisone 1% Cream] 1 applic TP Q12HP PRN 12/27/18 Losartan Potassium [Cozaar 50 mg Tablet] 50 mg PO DAILY 12/27/18 Magnesium Oxide [Mag-Ox 400 mg Tablet] 400 mg PO DAILY 12/27/18 Montelukast Sodium [Singulair 10 mg Tablet] 10 mg PO QHS 12/27/18 Nitroglycerin [Nitrostat 0.4 mg (1/150 Gr) Tabs 25/Bottle] 1 tab SL Q5MP PRN 12/27/18 Polyvinyl Alcohol [Liquitears 1.4% Ophth Soln 15 ml] 1 drop OU QIDP PRN 12/27/18 Ranitidine HCl [Zantac 150 mg Tablet] 300 mg PO WSUPPER 12/27/18 Ropinirole HCl [Requip] 1 mg PO Q12 12/27/18 Sennosides [Senna] 17.2 mg PO PRN PRN 12/27/18 Triamcinolone Acetonide [Aristocort 0.1% Cream] 1 applic TP BID 12/27/18 Diphenhydramine HCl [Benadryl 50 mg Capsule] 50 mg PO Q6HP PRN 06/01/19 Ipratropium/Albuterol Sulfate [Duoneb 3 ml Ampul] 3 ml NEB RTQ6HP PRN 06/01/19 Multivitamin,Stress Formula [Stress Formula] 1 each PO DAILY 06/01/19 Amlodipine Besylate [Norvasc 5 mg Tablet] 5 mg PO DAILY #30 tablet 06/05/19 Cefuroxime Axetil [Ceftin 500 mg Tablet] 1 tab PO BID #14 tablet 06/05/19 History of Present Illness History of Present Illness: GUY VICTORIA is a 78 year old female who presented to the ER with a history of CHF, chronic disease stage III, hypertension, as well as type II, rheumatoid arthritis, and ISABEL with plan shortness of breath altered mental status. Hospital Course Hospital Course: Patient was seen in ER with multiple past history including CHF, chronic kidney disease, hypertension, diabetes type II, and ISABEL to the emergency department with shortness of breath altered mental status and was found to have a fever one 1.4, hypertension, tachypnea, leukopenia, anemia which is baseline, normal coags and ABG, hyperkalemia 5.8 and lactic acidosis that resolved with IV fluids. Patient's initial troponin was 0.149 and showed elevation with a gradual decline throughout her hospital stay which was treated to chronic kidney disease. Patient was treated for sepsis due to unspecified organism had blood cultures an d urine cultures coming back with Escherichia coli. She also had one blood culture that showed enterococcus facialis although infectious disease believes this is a false negative. Patient is improved initially to return back to [facility] at this time. I will continue her on Ceftin 500 mg p.o. twice daily x7 days for her E. coli UTI. Patient is stable at this time and agrees to plan of care. Patient will be followed up with fdc staff as well as fdc MD when she returns to [facility]. Physical Exam Vital Signs: Temp Pulse Resp BP Pulse Ox 98.2 F 85 14 171/87 H 96 06/05/19 07:15 06/05/19 08:07 06/05/19 08:07 06/05/19 07:15 06/05/19 08:07 Intake & Output 06/04/19 06/05/19 06/06/19 06:59 06:59 06:59 Intake Total 3140 2102 Output Total 1001 800 Balance 2139 1302 Weight 57.7 kg 55.5 kg General appearance: PRESENT: no acute distress, well-developed, well-nourished Neck exam: ABSENT: carotid bruit, JVD, lymphadenopathy, thyromegaly Respiratory exam: PRESENT: clear to auscultation michael. ABSENT: rales, rhonchi, wheezes Cardiovascular exam: PRESENT: RRR. ABSENT: diastolic murmur, rubs, systolic murmur Pulses: PRESENT: normal dorsalis pedis pul Vascular exam: PRESENT: normal capillary refill GI/Abdominal exam: PRESENT: normal bowel sounds, soft. ABSENT: distended, guard ing, mass, organolmegaly, rebound, tenderness Rectal exam: PRESENT: deferred Extremities exam: PRESENT: full ROM. ABSENT: calf tenderness, clubbing, pedal edema Neurological exam: PRESENT: alert, awake, oriented to person, oriented to place, oriented to time, oriented to situation, CN II-XII grossly intact. ABSENT: motor sensory deficit Psychiatric exam: PRESENT: appropriate affect, normal mood. ABSENT: homicidal ideation, suicidal ideation Skin exam: PRESENT: dry, intact, warm. ABSENT: cyanosis, rash Results Laboratory Results: 06/05/19 03:53 06/05/19 03:53 06/05/19 06/05/19 03:53 03:53 WBC 6.5 RBC 3.44 L Hgb 10.4 L Hct 31.1 L MCV 90 MCH 30.1 MCHC 33.3 RDW 14.1 H Plt Count 150 Sodium 140.5 Potassium 4.1 Chloride 110 H Carbon Dioxide 25 Anion Gap 6 BUN 24 H Creatinine 1.04 Est GFR ( Amer) > 60 Est GFR (Non-Af Amer) 51 L Glucose 96 Calcium 9.1 05/31/19 05/31/19 05/31/19 09:35 13:23 13:23 Troponin I 0.149 4.190 NT-Pro-B Natriuret Pep 4340 H 05/31/19 06/01/19 06/03/19 19:30 08:01 06:37 Troponin I 5.670 3.990 2.060 NT-Pro-B Natriuret Pep Impressions: Chest X-Ray 05/31/19 10:25 IMPRESSION: ELEVATION OF THE RIGHT HEMIDIAPHRAGM WITH APPARENT CHRONIC INTERSTITIAL CHANGES. CHRONIC FINDINGS IN THE SHOULDERS. BASED ON PRIOR X-RAY REPORT, THESE FINDINGS PRESUMABLY ARE CHRONIC. NO APPARENT ACUTE FINDINGS. Qualifiers - * PATIENT BEING DISCHARGED WITH ANY OF THE FOLLOWING DIAGNOSIS: No Acute Heart Failure - Is this a Heart Failure Patient?: No Plan Time Spent: Greater than 30 Minutes
--- NOTE | 2019-06-05 08:53 | ADVANCED CARE ---
- Diagnosis (1) Sepsis Diagnosis Current: Yes (2) Bacteremia Diagnosis Current: Yes (3) CKD (chronic kidney disease), stage III Diagnosis Current: Yes (4) Anemia in chronic kidney disease Diagnosis Current: Yes (5) Elevated troponin Diagnosis Current: Yes Attendance: Myself and patient Resuscitation Status: Do Not Resuscitate Discussion: Discussion between myself and patient. At this time we will continue in about therapy with Ceftin 5 mg p.o. twice daily x7 days. Patient also states constipation for which I will place her back on MiraLAX 17 g p.o. daily for constipation as this does not cause dependence. Patient is in agreement with plan of care. Care Planning Goals: 1-Ceftin 500 g p.o. twice daily x 7 days 2-MiraLAX 17 g p.o. daily Time Spent: 15 minutes
[2019-06-05] MEDS: HYDROCORTISONE 10 MG TABLET PO SCH (09:05)
[2019-06-05] MEDS: ASCORBIC ACID 500 MG TABLET PO SCH (09:05)
[2019-06-05] MEDS: FEBUXOSTAT 40 MG TABLET PO SCH (09:05)
[2019-06-05] MEDS: DOCUSATE SODIUM 100 MG CAPSULE PO SCH (09:05)
[2019-06-05] MEDS: ROPINIROLE HCL 1 MG TABLET PO SCH (09:05)
[2019-06-05] MEDS: FAMOTIDINE 20 MG TABLET PO SCH (09:06)
[2019-06-05] MEDS: CLONIDINE HCL 0.2 MG TABLET PO SCH (09:06)
[2019-06-05] MEDS: MAGNESIUM OXIDE 400 MG TABLET PO SCH (09:06)
[2019-06-05] MEDS: LOSARTAN POTASSIUM 50 MG TABLET PO SCH (09:06)
[2019-06-05] MEDS: FOLIC ACID 1 MG TABLET PO SCH (09:06)
[2019-06-05] MEDS: CARVEDILOL 12.5 MG TABLET PO SCH (09:06)
[2019-06-05] MEDS: FLUTICASONE NASAL SPRAY 50 MCG/SPRY 120 SPRAY/16 GM NASL SCH (09:06)
[2019-06-05] MEDS: ASPIRIN 81 MG TABLET, CHEWABLE PO SCH (09:06)
[2019-06-05 12:28] VITALS: BP 166/82
== END 2019-06-05 13:46 | DRG 871 ==
LOC: ER 09:18 → EH 16:01 → 4N 17:56
PROVIDERS: ADMIT Internal Medicine; ATTEND Internal Medicine
DX: A41.51 Sepsis due to Escherichia coli [E. coli] (principal); G93.41 Metabolic encephalopathy; I13.0 Hypertensive heart and chronic kidney disease with heart failure and stage 1 through stage 4 chronic kidney disease, or unspecified chronic kidney disease; I50.30 Unspecified diastolic (congestive) heart failure; M33.20 Polymyositis, organ involvement unspecified; N39.0 Urinary tract infection, site not specified; E87.5 Hyperkalemia; E11.22 Type 2 diabetes mellitus with diabetic chronic kidney disease; E11.42 Type 2 diabetes mellitus with diabetic polyneuropathy; I27.20 Pulmonary hypertension, unspecified; E86.0 Dehydration; N18.3 Chronic kidney disease, stage 3 (moderate); D63.1 Anemia in chronic kidney disease; M06.9 Rheumatoid arthritis, unspecified; R31.9 Hematuria, unspecified; R65.20 Severe sepsis without septic shock; Z66 Do not resuscitate; G47.33 Obstructive sleep apnea (adult) (pediatric); R41.82 Altered mental status, unspecified; B96.20 Unspecified Escherichia coli [E. coli] as the cause of diseases classified elsewhere; E78.5 Hyperlipidemia, unspecified; K21.9 Gastro-esophageal reflux disease without esophagitis; F32.9 Major depressive disorder, single episode, unspecified; H91.90 Unspecified hearing loss, unspecified ear; M40.204 Unspecified kyphosis, thoracic region; R74.8 Abnormal levels of other serum enzymes; I25.2 Old myocardial infarction; Z87.891 Personal history of nicotine dependence; Z82.49 Family history of ischemic heart disease and other diseases of the circulatory system; Z88.2 Allergy status to sulfonamides; Z88.8 Allergy status to other drugs, medicaments and biological substances; Z99.3 Dependence on wheelchair
CPT/HCPCS: 36415; 36600; 71045; 80048; 80053; 80061; 81001; 82803; 82962; 83605; 83880; 84484; 85025; 85027; 85610; 85730; 87040; 87077; 87086; 87088; 87186; 93005; 93010; 93306; 94660; 96365; 99285; J0290; J0360; J0696; J1644; J1650; J2543; J3490; J7030; J7050; J7060; J7620